=== PATIENT | male | born 1965 | race Caucasian/White ===

== ENCOUNTER 2019-04-12 07:06 | Emergency (ER) | payer OTHER, BC, SELFPAY ==
[2019-04-12 07:19] VITALS: BP 150/88; PULSE 82; RESP 15; TEMP 37.1; O2SAT 95; BMI 28.5
--- NOTE | 2019-04-12 07:23 | DI.RAD.S_ITS ---
PROCEDURE: XR KNEE LT 3V INDICATIONS: fall down stairs pain TECHNIQUE: 3 views of the knee were acquired. COMPARISON: None. FINDINGS: Bones: No fractures or dislocations. There are surgical changes of ACL graft with screws in the distal femur and proximal tibia, and a transverse screw in the distal femoral metaphysis. Bony alignment is normal. There is a 9 mm corticated, tubular calcification projecting anterior to the joint line seen on the lateral view which may be a loose osteophyte. Calcifications project over the medial and lateral femoral condylar articular surfaces, one of which is likely a fabella. No suspicious bony lesions. Soft tissues: Very small joint effusion. No discrete chondrocalcinosis. IMPRESSION: 1. No discrete fractures. 2. Postsurgical changes. 3. Very small joint effusion, either chronic reactive, less likely acute. 4. Osteophytosis, potentially loose intra-articular body projecting anterior to the jointline seen on the lateral view. This is well-corticated and an acute avulsion fracture is felt unlikely. If there are continued symptoms, MR imaging could be considered. Dictated by: Judit Reece M.D. on 04/12/2019 at 7:51 Approved by: Judit Reece M.D. on 04/12/2019 at 7:55
--- NOTE | 2019-04-12 07:46 | ED.LOWEXIN ---
HPI - Extremity Injury (Lower) General Chief Complaint: Extremity Injury, Lower Stated Complaint: Left knee injury, slipped on stairs Time Seen by Provider: 04/12/19 07:19 Source: patient Mode of arrival: ambulatory Limitations: no limitations History of Present Illness HPI Narrative: Patient is a 54-year-old male who presents with left knee pain. Last evening he was walking down stairshis boat his right foot slipped forward his left toe got stuck. Sometimes he is able to bear weight on his knee but sometimes not. He has previously had 2 surgeries on that knee for an ACL repair. He denies hearing any popping. He has no numbness or tingling. Able to move his toes. He denies any other injury. MD complaint: knee injury Related Data Previous Rx's Medication Instructions Recorded ibuprofen 800 mg PO Q8H PRN #30 tab 04/12/19 Allergies Allergy/AdvReac Type Severity Reaction Status Date / Time latex Allergy Verified 04/12/19 07:18 Penicillins Allergy Verified 04/12/19 07:18 Review of Systems Review of Systems GENERAL: Denies chills,fever HEENT: Denies throat pain RESPIRATORY: Denies dyspnea, cough, wheezing CARDIOVASCULAR: Denies chest pain, palpitations GASTROINTESTINAL: Denies nausea, vomiting MUSCULOSKELETAL: See HPI SKIN: No rash, no laceration, no pruritus NEUROLOGIC: Denies weakness, dizziness, headache, numbness 8 point review of systems is negative except for those stated above and [facility]PI [facility] Surgical History H/O left knee surgery (Acute) Social History Smoking Status: Never smoker Social History Smoking Status: Never smoker Exam Initial Vital Signs Initial Vital Signs: Vital Signs Temperature 98.7 F 04/12/19 07:19 Pulse Rate 82 04/12/19 07:19 Respiratory Rate 15 04/12/19 07:19 Blood Pressure 150/88 H 04/12/19 07:19 Pulse Oximetry 95 04/12/19 07:19 GENERAL: Well-appearing, well-nourished and in no acute distress. CARDIOVASCULAR: peripheral pulses in tact, cap refill <2 sec RESPIRATORY: No respiratory distress, speaks in full sentences without difficulty EXTREMITIES: Normal range of motion, no clubbing or edema. Neurovascularly intact -left knee stable is negative anterior posterior drawer minimal swelling no erythema distal to both intact NEUROLOGICAL: Cranial nerves II through XII grossly intact. Normal gait and speech. SKIN: Warm, dry, no petechiae, no rashes or lesions. Course Orders Ordered: ED Orders 04/12/19 07:23 XR knee LT 3V Stat Vital Signs - 8 hr 04/12/19 07:19 Temperature 98.7 F Pulse Rate 82 Respiratory Rate 15 Blood Pressure 150/88 H Pulse Oximetry 95 MDM - Extremity Injury (Lower) Imaging Data left knee: Radiologist's impression: PROCEDURE: XR KNEE LT 3V INDICATIONS: fall down stairs pain TECHNIQUE: 3 views of the knee were acquired. COMPARISON: None. FINDINGS: Bones: No fractures or dislocations. There are surgical changes of ACL graft with screws in the distal femur and proximal tibia, and a transverse screw in the distal femoral metaphysis. Bony alignment is normal. There is a 9 mm corticated, tubular calcification projecting anterior to the joint line seen on the lateral view which may be a loose osteophyte. Calcifications project over the medial and lateral femoral condylar articular surfaces, one of which is likely a fabella. No suspicious bony lesions. Soft tissues: Very small joint effusion. No discrete chondrocalcinosis. IMPRESSION: 1. No discrete fractures. 2. Postsurgical changes. 3. Very small joint effusion, either chronic reactive, less likely acute. 4. Osteophytosis, potentially loose intra-articular body projecting anterior to the jointline seen on the lateral view. This is well-corticated and an acute avulsion fracture is felt unlikely. If there are continued symptoms, MR imaging could be considered. Dictated by: Judit Reece M.D. on 04/12/2019 at 7:51 Approved by: Judit Reece M.D. on 04/12/2019 at 7:55 [facility] Narrative Medical decision making narrative: He Is offered a knee immobilizer but declines at this time he is given a cane. He has multiple knee braces at home. Discharge Plan Departure Patient Disposition: Home Clinical Impression: Left knee sprain Qualifiers: Encounter type: initial encounter Involved ligament of knee: unspecified ligament Qualified Code(s): S83.92XA - Sprain of unspecified site of left knee, initial encounter Instructions: DI for Knee Sprain Activity Restrictions/Additional Instructions: *You have been diagnosed with left knee sprain *What to do: Increase activity as tolerated wearing a brace while active. He may require outpatient MRI *Continue to take medications as directed Ibuprofen 800 mg every 8 hours if needed for mild pain *Follow up with your primary care provider in 2-3 days *Return to ER if you should have increasing pain, numbness, tingling, weakness or any new, worsening or concerning symptoms Prescriptions: New ibuprofen 800 mg tablet 800 mg PO Q8H PRN (Reason: pain) Qty: 30 RF: 0
--- NOTE | 2019-04-12 07:50 | ED_ITS ---
HPI - Extremity Injury (Lower) General Chief Complaint: Extremity Injury, Lower Stated Complaint: Left knee injury, slipped on stairs Time Seen by Provider: 04/12/19 07:19 Source: patient Mode of arrival: ambulatory Limitations: no limitations History of Present Illness HPI Narrative: Patient is a 54-year-old male who presents with left knee pain. Last evening he was walking down stairshis boat his right foot slipped forward his left toe got stuck. Sometimes he is able to bear weight on his knee but sometimes not. He has previously had 2 surgeries on that knee for an ACL repair. He denies hearing any popping. He has no numbness or tingling. Able to move his toes. He denies any other injury. MD complaint: knee injury Related Data Previous Rx's Medication Instructions Recorded ibuprofen 800 mg PO Q8H PRN #30 tab 04/12/19 Allergies Allergy/AdvReac Type Severity Reaction Status Date / Time latex Allergy Verified 04/12/19 07:18 Penicillins Allergy Verified 04/12/19 07:18 Review of Systems Review of Systems GENERAL: Denies chills,fever HEENT: Denies throat pain RESPIRATORY: Denies dyspnea, cough, wheezing CARDIOVASCULAR: Denies chest pain, palpitations GASTROINTESTINAL: Denies nausea, vomiting MUSCULOSKELETAL: See HPI SKIN: No rash, no laceration, no pruritus NEUROLOGIC: Denies weakness, dizziness, headache, numbness 8 point review of systems is negative except for those stated above and HPI [facility] Surgical History H/O left knee surgery (Acute) Social History Smoking Status: Never smoker Social History Smoking Status: Never smoker Exam Initial Vital Signs Initial Vital Signs: Vital Signs Temperature 98.7 F 04/12/19 07:19 Pulse Rate 82 04/12/19 07:19 Respiratory Rate 15 04/12/19 07:19 Blood Pressure 150/88 H 04/12/19 07:19 Pulse Oximetry 95 04/12/19 07:19 GENERAL: Well-appearing, well-nourished and in no acute distress. CARDIOVASCULAR: peripheral pulses in tact, cap refill <2 sec RESPIRATORY: No respiratory distress, speaks in full sentences without difficulty EXTREMITIES: Normal range of motion, no clubbing or edema. Neurovascularly intact -left knee stable is negative anterior posterior drawer minimal swelling no eryt lisset distal to both intact NEUROLOGICAL: Cranial nerves II through XII grossly intact. Normal gait and speech. SKIN: Warm, dry, no petechiae, no rashes or lesions. Course Orders Ordered: ED Orders 04/12/19 07:23 XR knee LT 3V Stat Vital Signs - 8 hr 04/12/19 07:19 Temperature 98.7 F Pulse Rate 82 Respiratory Rate 15 Blood Pressure 150/88 H Pulse Oximetry 95 MDM - Extremity Injury (Lower) Imaging Data left knee: Radiologist's impression: PROCEDURE: XR KNEE LT 3V INDICATIONS: fall down stairs pain TECHNIQUE: 3 views of the knee were acquired. COMPARISON: None. FINDINGS: Bones: No fractures or dislocations. There are surgical changes of ACL graft with screws in the distal femur and proximal tibia, and a transverse screw in the distal femoral metaphysis. Bony alignment is normal. There is a 9 mm corticated, tubular calcification projecting anterior to the joint line seen on the lateral view which may be a loose osteophyte. Calcifications project over the medial and lateral femoral condylar articular surfaces, one of which is likely a fabella. No suspicious bony lesions. Soft tissues: Very small joint effusion. No discrete chondrocalcinosis. IMPRESSION: 1. No discrete fractures. 2. Postsurgical changes. 3. Very small joint effusion, either chronic reactive, less likely acute. 4. Osteophytosis, potentially loose intra-articular body projecting anterior to the jointline seen on the lateral view. This is well-corticated and an acute avulsion fracture is felt unlikely. If there are continued symptoms, MR imaging could be considered. Dictated by: Judit Reece M.D. on 04/12/2019 at 7:51 Approved by: Judit Reece M.D. on 04/12/2019 at 7:55 [facility] Narrative Medical decision making narrative: He Is offered a knee immobilizer but declines at this time he is given a cane. He has multiple knee braces at home. Discharge Plan Departure Patient Disposition: Home Clinical Impression: Left knee sprain Qualifiers: Encounter type: initial encounter Involved ligament of knee: unspecified ligament Qualified Code(s): S83.92XA - Sprain of unspecified site of left knee, initial encounter Instructions: DI for Knee Sprain Activity Restrictions/Additional Instructions: *You have been diagnosed with left knee sprain *What to do: Increase activity as tolerated wearing a brace while active. He may require outpatient MRI *Continue to take medications as directed Ibuprofen 800 mg every 8 hours if needed for mild pain *Follow up with your primary care provider in 2-3 days *Return to ER if you should have increasing pain, numbness, tingling, weakness or any new, worsening or concerning symptoms Prescriptions: New ibuprofen 800 mg tablet 800 mg PO Q8H PRN (Reason: pain) Qty: 30 RF: 0
== END 2019-04-12 08:23 | disposition home or self-care (01) ==
PROVIDERS: Emergency Provider Emergency Medicine
DX: S83.92XA Sprain of unspecified site of left knee, initial encounter (principal); W18.43XA Slipping, tripping and stumbling without falling due to stepping from one level to another, initial encounter
CPT/HCPCS: 73562; 99282; 99283

== ENCOUNTER → 2024-08-22 08:48 | Outpatient (CLI) | payer BC, SELFPAY ==
[2024-08-22 09:51] LABS: Add Manual Diff / Slide Review NO; Basophils Absolute Auto 100 /uL (0-100); Basophils Percent Auto 1.1 % (0-2); Eosinophils Absolute Auto 500 /uL (0-450); Eosinophils Percent Auto 8.2 % (2-4); Hematocrit 42.6 % (41-53); Hemoglobin 14.5 g/dL (13.5-17.5); Lymphocytes Absolute Auto 2500 /uL (1100-4500); Lymphocytes Percent Auto 43.9 % (25-40); Mean Corpuscular HGB Conc 34.2 % (30-36); Mean Corpuscular Hemoglobin 32.5 PG (26-34); Mean Corpuscular Volume 95.2 fL (80-100); Monocytes Absolute Auto 400 /uL (0-900); Monocytes Percent Auto 7.9 % (3-14); Neutrophils Absolute Auto 2200 /uL (1500-7000); Neutrophils Percent Auto 38.9 % (50-75); Platelet Count 248 X10^3/uL (150-400); Red Blood Cell Count 4.47 X10^6/uL (4.5-5.9); White Blood Cell Count 5.7 X10^3/uL (4.5-11.0)
[2024-08-22 10:03] LABS: Hemoglobin A1C% w Est Avg Glu 5.7 % (4.0-6.0)
[2024-08-22 10:09] LABS: Alanine Aminotransferase 17 IU/L (<50); Albumin Globulin Ratio 1.4 (1.0-2.8); Alkaline Phosphatase 47 U/L (38-126); Aspartate Aminotransferase 22 IU/L (17-59); BUN Creatinine Ratio 18.8 (6-22); Bilirubin Total 0.8 mg/dL (0.2-1.3); Blood Urea Nitrogen 13 mg/dL (9-20); Calcium 9.1 mg/dL (8.4-10.2); Carbon Dioxide 25 mmol/L (22-32); Chloride 103 mmol/L (98-107); Cholesterol 231 mg/dL (140-199); Estimated Glomerular Filt Rate > 60 mL/min (>60); Globulin 2.8 g/dL (1.7-4.1); Glucose 113 mg/dL (80-110); HDL Cholesterol 65 mg/dL (40-60); HEMOLYSIS < 15 (0-50); LDL Cholesterol Calculated 147 mg/dL (<100); Potassium 4.4 mmol/L (3.4-5.1); Sodium 135 mmol/L (137-145); Total Protein 6.8 g/dL (6.3-8.2); Triglycerides 97 mg/dL (35-150)
[2024-08-22 10:40] LABS: Prostate Specific Antigen Scrn 2.12 ng/mL (0.1-4.0)
== END ==
PROVIDERS: PCP Family Medicine; Referring Provider Family Medicine; Visit Provider Family Medicine
DX: I10 Essential (primary) hypertension (principal); E78.5 Hyperlipidemia, unspecified; Z12.5 Encounter for screening for malignant neoplasm of prostate
CPT/HCPCS: 36415; 80053; 80061; 83036; 85025; G0103

== ENCOUNTER → 2024-09-05 14:06 | Outpatient (CLI) | payer BC, SELFPAY ==
--- NOTE | 2024-09-05 14:13 | DI.RAD.S_ITS ---
PROCEDURE: XR HIP W PEL IF DONE BIRGIT MIN 4V INDICATIONS: BILATERAL HIP PAIN TECHNIQUE: AP pelvis with lateral view(s) of the right hip(s). COMPARISON: None. FINDINGS: Bones: No fractures or dislocations. Pelvic ring appears intact. No suspicious bony lesions. There is moderate joint space narrowing involving the right hip consistent with degenerative joint disease. There is moderately advanced degenerative joint disease involving the left hip. Soft tissues: The visualized bowel gas pattern is normal. No suspicious soft tissue calcifications. IMPRESSION: No acute bony abnormality. Moderate left greater than right degenerative joint disease involving the hips. Dictated by: Feliciano Prieto M.D. on 09/05/2024 at 14:38 Approved by: Feliciano Prieto M.D. on 09/05/2024 at 14:45
== END ==
PROVIDERS: PCP Family Medicine; Referring Provider Family Medicine; Visit Provider Family Medicine
DX: M25.551 Pain in right hip (principal); M25.552 Pain in left hip; M16.0 Bilateral primary osteoarthritis of hip
CPT/HCPCS: 73522

== ENCOUNTER → 2024-12-11 17:09 | Outpatient (CLI) | payer BC, SELFPAY ==
[2024-12-11 17:42] LABS: Add Manual Diff / Slide Review NO; Basophils Absolute Auto 100 /uL (0-100); Basophils Percent Auto 0.9 % (0-2); Eosinophils Absolute Auto 500 /uL (0-450); Eosinophils Percent Auto 6.4 % (2-4); Hematocrit 43.7 % (41-53); Hemoglobin 14.9 g/dL (13.5-17.5); Lymphocytes Absolute Auto 2900 /uL (1100-4500); Lymphocytes Percent Auto 39.6 % (25-40); Mean Corpuscular HGB Conc 34.1 % (30-36); Mean Corpuscular Hemoglobin 32.6 PG (26-34); Mean Corpuscular Volume 95.7 fL (80-100); Monocytes Absolute Auto 700 /uL (0-900); Monocytes Percent Auto 9.4 % (3-14); Neutrophils Absolute Auto 3200 /uL (1500-7000); Neutrophils Percent Auto 43.7 % (50-75); Platelet Count 265 X10^3/uL (150-400); Red Blood Cell Count 4.57 X10^6/uL (4.5-5.9); Red Cell Distribution Width 13.6 % (11.6-14.8); White Blood Cell Count 7.4 X10^3/uL (4.5-11.0)
[2024-12-11 17:48] LABS: Hemoglobin A1C% w Est Avg Glu 5.3 % (4.0-6.0)
[2024-12-11 17:49] LABS: INR 0.9 (0.9-1.3); Prothrombin Time 10.6 SECONDS (9.4-12.5)
[2024-12-11 17:55] LABS: Alanine Aminotransferase 21 IU/L (<50); Albumin 4.4 g/dL (3.5-5.0); Albumin Globulin Ratio 1.3 (1.0-2.8); Alkaline Phosphatase 55 U/L (38-126); Aspartate Aminotransferase 32 IU/L (17-59); BUN Creatinine Ratio 12.7 (6-22); Bilirubin Total 0.4 mg/dL (0.2-1.3); Blood Urea Nitrogen 9 mg/dL (9-20); Calcium 8.9 mg/dL (8.4-10.2); Carbon Dioxide 27 mmol/L (22-32); Chloride 103 mmol/L (98-107); Estimated Glomerular Filt Rate > 60 mL/min (>60); Globulin 3.4 g/dL (1.7-4.1); Glucose 94 mg/dL (80-110); HEMOLYSIS 20 (0-50); Potassium 4.7 mmol/L (3.4-5.1); Sodium 138 mmol/L (137-145); Total Protein 7.8 g/dL (6.3-8.2)
== END ==
PROVIDERS: Family Provider Family Medicine; PCP Family Medicine; Referring Provider Family Medicine; Visit Provider Family Medicine
DX: Z01.818 Encounter for other preprocedural examination (principal); R73.01 Impaired fasting glucose; E78.5 Hyperlipidemia, unspecified; M25.552 Pain in left hip
CPT/HCPCS: 36415; 80053; 83036; 85025; 85610

== ENCOUNTER → 2024-12-19 16:12 | Outpatient (CLI) | payer BC, SELFPAY ==
[2024-12-19 21:33] LABS: MRSA (Nasal) PCR NOT DETECTED (Not Detect)
== END ==
PROVIDERS: Family Provider Family Medicine; PCP Family Medicine; Visit Provider Family Medicine
DX: Z01.818 Encounter for other preprocedural examination (principal)
CPT/HCPCS: 87797

== ENCOUNTER 2025-05-06 09:45 | Outpatient (RCR) | payer BC, SELFPAY ==
--- NOTE | 2025-01-14 13:38 | PT.OIE ---
Current Diagnoses Unilateral primary osteoarthritis, left hip (01/14/25) Difficulty in walking, not elsewhere classified (01/14/25) Weakness (01/14/25) Past Medical History (Last Updated 09/17/24 @ 20:59 by Farida Roque) Chicken pox (~1992) Eczema (~2020) Fractures Hyperlipidemia, unspecified IFG (impaired fasting glucose) Melanoma (~2019) Shoulder pain Skin cancer (~2019) Past Surgical History (Last Updated 12/21/24 @ 11:16 by Jeanette Jackson MA) Anesthesia H/O left knee surgery (~2008) H/O right knee surgery (~2002) History of rotator cuff surgery (~2019) History of shoulder surgery (~2004) Status post LASIK surgery (~1997) [place] teeth removed (03/24/84) Visit Care Team Role Provider Type Aviva Argueta DO Family Provider Physician Primary Care Provider Specialty: Family Practice Address: [address] [place] [address], [facility] Email: [email or web address] Taurus Saldana MD Attending Provider Non-Staff Referring Provider Specialty: Orthopedic Surgery Address: [address] [place] [address], [facility] Email: Physical Therapy Initial Evaluation PT-OP-A Visit Information Start: 01/10/25 16:00 Freq: Status: Active Protocol: Document 01/14/25 11:34 [facility] (Rec: 01/14/25 12:24 [facility] Laptop) Out-Patient Physical Therapy Visit Information Visit Information Visit Type Initial Evaluation Visit Start Time 11:34 Visit Stop Time 12:25 Visit Number 1 Evaluation Information Evaluation Date 01/14/25 Precautions Precautions Left anterior FREDRICK PT-OP-B Current Condition Start: 01/10/25 16:00 Freq: Status: Active Protocol: Document 01/14/25 11:34 [facility] (Rec: 01/14/25 12:24 SAK Laptop) Current Condition History of Current Condition Onset Date 01/10/25 Current Complaints s/p left FREDRICK History of Current Condition s/p left anterior FREDRICK 01/10/25. Used Oxycodone first couple days, now off and using Ibuprofen, Tylenol, baby aspirin, ice. No need for anti-nausea. Used walker at first, today first day with cane. Using FWW in the middle of the night. Numbness left lateral LE, has been swollen but wearing above knee compression socks not as swollen. Post-op dressing still in place, can come off 1 wk after surgery. Goes back to Dr. Ocampo 01/24/25. no redness or warmth. Has been doing exercises. 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 Current Functional Impairments (Reported) Functional Limitations- ADL's bench in shower Functional Limitations- Mobility/Gait cane Functional Limitations- Work/School retired Functional Limitations- Recreation/ unable to go for walks, go Hobbies boating. PT-OP-C Subjective Start: 01/10/25 16:00 Freq: Status: Active Protocol: Document 01/14/25 11:34 [facility] (Rec: 01/14/25 12:24 [facility] Laptop) Patient Questionnaires Lower Extremity Functional Scale LEFS Score 20 OP-PT Pain Assessment Pain Assessment Grid Paper Pain Assessment Grid Completed Yes Location left hip Intensity 3 Description Aching,Spasm,Throbbing Frequency Frequent Pain Aggravating Factors ADL's,Activity,Walking Pain Alleviating Factors Cold,Inactivity,Rest Home Pain Medication Use Pain Medications Used Yes Pain Behaviors Pain Behaviors Facial Grimacing,Wincing PT-OP-D Balance Start: 01/10/25 16:00 Freq: Status: Active Protocol: Document 01/14/25 11:34 [facility] (Rec: 01/14/25 13:36 [facility] Laptop) OP-PT Balance Assessment Sitting Balance Static Sitting Balance Ability Normal Dynamic Sitting Balance Ability Normal Standing Balance Static Standing Balance Ability Fair Dynamic Standing Balance Ability Fair Device Used SPC Standing Balance Comments decreased weight-bearing left LE Tucker Fall Scale Copyright Permission PT-OP-F Manual Assessment Start: 01/10/25 16:00 Freq: Status: Active Protocol: Document 01/14/25 11:34 [facility] (Rec: 01/14/25 13:36 [facility] Laptop) Manual Assessments Soft Tissue Assessment Soft Tissue Mobility Assessment swollen left LE, no excess redness and warmth PT-OP-G Mobility & Gait Start: 01/10/25 16:00 Freq: Status: Active Protocol: Document 01/14/25 11:34 [facility] (Rec: 01/14/25 12:24 [facility] Laptop) OP Mobility Evaluation Bed Mobility Supine to and from Sit SBA, hooks right foot under left to transition sit to supine OP Gait Assessment Gait Gait Assistance Required: Independent Distance (Feet) 50 Able to Maintain Weight Bearing Status Yes During Gait Assistive Devices Assistive Device Straight Cane Gait Deviations General Gait Pattern Antalgic,Decreased Stride Length,Decreased Feet Clearance Factors Limiting Gait Function Factors Limiting Gait Function Decreased Strength,Pain Stair Climbing Evaluation Evaluation Level of Assist On Stairs Standby Assistance Devices Stair Climbing Assistive Devices Straight Cane,Right Railing Technique/Endurance Stair Climbing Direction Ascend and Descend Stair Climbing Technique Step to Step Stair Climbing Set # Repetitions (reps) 4 Comments Stair Climbing Comments 6 stairs PT-OP-H Neuro Start: 01/10/25 16:00 Freq: Status: Active Protocol: Document 01/14/25 11:34 [facility] (Rec: 01/14/25 13:36 [facility] Laptop) Sensation Evaluation Gross Sensation Sensation Description Paresthesia PT-OP-J Posture/Palpation/Skin Start: 01/10/25 16:00 Freq: Status: Active Protocol: Document 01/14/25 11:34 [facility] (Rec: 01/14/25 13:36 [facility] Laptop) Palpation Assessment Location left hip Palpation Findings Edema,Soft Tissue Tightness Skin Assessment Incisional Assessment Incision Appearance/Comments covered by op dressing PT-OP-K Range of Motion Start: 01/10/25 16:00 Freq: Status: Active Protocol: Document 01/14/25 11:34 [facility] (Rec: 01/14/25 13:36 [facility] Laptop) Hip Goniometric Range of Motion Hip Left Active Testing Position Supine Flexion w/Knee Flexed 75 Extension 0 Abduction 40 Right Active Testing Position Supine Hip ROM Limitations Comments rotation not tested this date PT-OP-M Strength Start: 01/10/25 16:00 Freq: Status: Active Protocol: Document 01/14/25 11:34 [facility] (Rec: 01/14/25 13:36 [facility] Laptop) Hip Strength Hip Manual Muscle Testing Left Comments No MMT due to surgery. Able to flex left hip less than full anti-gravity Right Comments WFL Knee Strength Knee Manual Muscle Testing Left Comments antigravity quads Right Flexion (S2) 5 Normal Extension (L3) 5 Normal Ankle/Foot Strength Ankle and Foot Manual Muscle Testing juanita Dorsiflexion (L4) 5 Normal Plantarflexion (S1) 5 Normal PT-OP-Q Treatments Start: 01/10/25 16:00 Freq: Status: Active Protocol: Document 01/14/25 11:34 [facility] (Rec: 01/14/25 13:36 [facility] Laptop) Therapeutic Exercises Supine Exercises ball squeeze Side bilateral Equipment Used pillow Reps/Minutes 10x hip ab Side left Reps/Minutes 10x heel slide Side left Reps/Minutes 10x bridge Side bilateral Reps/Minutes 5x Comments small lift glut sets Side bilateral Reps/Minutes 10x Sidelying Exercises clam Sidelying Exercise Name next session Standing Exercises heel raise, toe raise Equipment Used counter PRN Reps/Minutes 10x Shallow knee bend Side bilateral Comments cue for LE alignment, pain- free motion Self-Care/Home Management Treatment Education Patient Education Home Exercise Program Other Education issued written HEP PT-OP-R Modalities Start: 01/10/25 16:00 Freq: Status: Active Protocol: Document 01/14/25 11:34 [facility] (Rec: 01/14/25 13:36 [facility] Laptop) Hot Pack/Cold Pack Treatment L hip Location ice pack Patient Position Hooklying Patient Tolerance Good PT-OP-T Assessment and Plan Start: 01/10/25 16:00 Freq: Status: Active Protocol: Document 01/14/25 11:34 [facility] (Rec: 01/14/25 13:36 [facility] Laptop) Physical Therapy Assessment Rehab Potential Rehabilitation Potential Excellent Evaluation Complexity Number of Personal Factors/Comorbidities 1-2 Number of Body Systems Impaired 3 Clinical Presentation at Evaluation Evolving Impairments Impairments Activity Tolerance,Gait, Strength Goals Three Impairment weakness left LE Short Term Goal (STG) Instruct patient in HEP for purposes of left LE strengthening STG Duration 02/27/25 Mcc Goal (LTG) Patient will be independent and compliant with HEP and demonstrate improvement in left LE strength to at least 4 +/5 to allow him to return to prior level of function. LTG Duration 04/15/25 Two Impairment Antalgic gait, step-to pattern on stairs Short Term Goal (STG) Patient will be able to ambulate on level surfaces without a limp with least restrictive device STG Duration 02/27/25 Coal Drier Operator Goal (LTG) Patient will be able to ambulate on level and uneven surfaces without device without an increase in pain. Alternating step pattern on stairs LTG Duration 04/15/25 One Impairment Lower extremity functional scale 20% Short Term Goal (STG) Improve score to at least 40% as measure of improved activity tolerance and left LE function STG Duration 02/27/25 Coal Drier Operator Goal (LTG) Improve score to at least 75% as measure of improved activity tolerance and left LE function LTG Duration 04/15/25 Assessment Summary Assessment Patient presents to PT with activity tolerance, gait, and strength impairments typical post-op left anterior FREDRICK. He will benefit from PT for FREDRICK rehab left LE to help him return to prior level of function. POC was discussed and patient was in agreement. He was able to verbalize understanding of FREDRICK precautions, has already transitioned to using cane for gait except at night and has stopped taking Oxycodone. He appears highly motivated. Physical Therapy Plan Frequency and Duration Frequency of Treatment 2x/Week Duration of treatment (weeks) 12 Plan of Care Start Date 01/14/25 Plan of Care End Date 04/15/25 Therapeutic Interventions Therapeutic Interventions Gait Training,Home Exercise Program,Manual Therapy, Neuromuscular Re-education, Patient/Caregiver Education, Self-Care/Home Management,Soft Tissue Mobilization,Taping, Therapeutic Activities, Therapeutic Exercises Modalities Cold Pack/Ice Massage,Electric Stimulation,Hot Packs Next Visit Focus/Plan Next Note Type Treatment Note Next Visit Plan Start patient on recumbant stepper, review HEP. Further gait training level surfaces and stairs. Consider trial shuttle leg press. Ice pack after treatment.
--- NOTE | 2025-01-14 13:39 | PT.OPPOC ---
Physical, Occupational & Speech Therapy At [facility] Current Diagnoses Unilateral primary osteoarthritis, left hip (01/14/25) Difficulty in walking, not elsewhere classified (01/14/25) Weakness (01/14/25) Visit Care Team Role Provider Type Aviva Argueta DO Family Provider Physician Primary Care Provider Specialty: Family Practice Address: [address] [place] [address], [facility] [address], [place], [address] Email: [email or web address] Taurus Saldana MD Attending Provider Non-Staff Referring Provider Specialty: Orthopedic Surgery Address: [address] [place] [address], [id number] Email: Plan Of Care PT-OP-B Current Condition Start: 01/10/25 16:00 Freq: Status: Active Protocol: Document 01/14/25 11:34 SAK (Rec: 01/14/25 12:24 SAK Laptop) Current Condition History of Current Condition Onset Date 01/10/25 Current Complaints s/p left FREDRICK History of Current Condition s/p left anterior FREDRICK 01/10/25. Used Oxycodone first couple days, now off and using Ibuprofen, Tylenol, baby aspirin, ice. No need for anti-nausea. Used walker at first, today first day with cane. Using FWW in the middle of the night. Numbness left lateral LE, has been swollen but wearing above knee compression socks not as swollen. Post-op dressing still in place, can come off 1 wk after surgery. Goes back to Dr. Ocampo 01/24/25. no redness or warmth. Has been doing exercises. 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 Current Functional Impairments (Reported) Functional Limitations- ADL's bench in shower Functional Limitations- Mobility/Gait cane Functional Limitations- Work/School retired Functional Limitations- Recreation/ unable to go for walks, go Hobbies boating. PT-OP-T Assessment and Plan Start: 01/10/25 16:00 Freq: Status: Active Protocol: Document 01/14/25 11:34 SAK (Rec: 01/14/25 13:36 [facility] Laptop) Physical Therapy Assessment Rehab Potential Rehabilitation Potential Excellent Evaluation Complexity Number of Personal Factors/Comorbidities 1-2 Number of Body Systems Impaired 3 Clinical Presentation at Evaluation Evolving Impairments Impairments Activity Tolerance,Gait, Strength Goals Three Impairment weakness left LE Short Term Goal (STG) Instruct patient in HEP for purposes of left LE strengthening STG Duration 02/27/25 Detention Goal (LTG) Patient will be independent and compliant with HEP and demonstrate improvement in left LE strength to at least 4 +/5 to allow him to return to prior level of function. LTG Duration 04/15/25 Two Impairment Antalgic gait, step-to pattern on stairs Short Term Goal (STG) Patient will be able to ambulate on level surfaces without a limp with least restrictive device STG Duration 02/27/25 Storeperson Goal (LTG) Patient will be able to ambulate on level and uneven surfaces without device without an increase in pain. Alternating step pattern on stairs LTG Duration 04/15/25 One Impairment Lower extremity functional scale 20% Short Term Goal (STG) Improve score to at least 40% as measure of improved activity tolerance and left LE function STG Duration 02/27/25 Detention Goal (LTG) Improve score to at least 75% as measure of improved activity tolerance and left LE function LTG Duration 04/15/25 Assessment Summary Assessment Patient presents to PT with activity tolerance, gait, and strength impairments typical post-op left anterior FREDRICK. He will benefit from PT for FREDRICK rehab left LE to help him return to prior level of function. POC was discussed and patient was in agreement. He was able to verbalize understanding of FREDRICK precautions, has already transitioned to using cane for gait except at night and has stopped taking Oxycodone. He appears highly motivated. Physical Therapy Plan Frequency and Duration Frequency of Treatment 2x/Week Duration of treatment (weeks) 12 Plan of Care Start Date 01/14/25 Plan of Care End Date 04/15/25 Therapeutic Interventions Therapeutic Interventions Gait Training,Home Exercise Program,Manual Therapy, Neuromuscular Re-education, Patient/Caregiver Education, Self-Care/Home Management,Soft Tissue Mobilization,Taping, Therapeutic Activities, Therapeutic Exercises Modalities Cold Pack/Ice Massage,Electric Stimulation,Hot Packs Next Visit Focus/Plan Next Note Type Treatment Note Next Visit Plan Start patient on recumbant stepper, review HEP. Further gait training level surfaces and stairs. Consider trial shuttle leg press. Ice pack after treatment. Plan of Care Dates Plan of Care Start Date 01/14/25 Plan of Care End Date 04/15/25 Electronically Signed by: Andree Gonzalez, PT 01/14/25 [id number] If you are in agreement with this Plan of Care, please return a signed and dated copy. I have reviewed this Plan of Care and certify that the skilled therapy services above are required to meet the patient?s needs. Physician Signature Date Printed Name and Credentials Clinical Instructor Signature Printed Name and Credentials
--- NOTE | 2025-01-16 09:07 | PT.OTN ---
Current Diagnoses Unilateral primary osteoarthritis, left hip (01/16/25) Difficulty in walking, not elsewhere classified (01/16/25) Weakness (01/16/25) Physical Therapy Treatment Note PT-OP-A Visit Information Start: 01/10/25 16:00 Freq: Status: Active Protocol: Document 01/16/25 08:19 SP (Rec: 01/16/25 09:10 SP Laptop) Out-Patient Physical Therapy Visit Information Visit Information Visit Type Treatment Note Visit Start Time 08:19 Visit Stop Time 09:07 Visit Number 2 Number of ASSEMBLER TUBING Visits 1 Evaluation Information Evaluation Date 01/14/25 Precautions Precautions Left anterior FREDRICK PT-OP-B Current Condition Start: 01/10/25 16:00 Freq: Status: Active Protocol: Document 01/14/25 11:34 SAK (Rec: 01/14/25 12:24 SAK Laptop) Current Condition History of Current Condition Onset Date 01/10/25 Current Complaints s/p left FREDRICK History of Current Condition s/p left anterior FREDRICK 01/10/25. Used Oxycodone first couple days, now off and using Ibuprofen, Tylenol, baby aspirin, ice. No need for anti-nausea. Used walker at first, today first day with cane. Using FWW in the middle of the night. Numbness left lateral LE, has been swollen but wearing above knee compression socks not as swollen. Post-op dressing still in place, can come off 1 wk after surgery. Goes back to Dr. Ocampo 01/24/25. no redness or warmth. Has been doing exercises. 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 Current Functional Impairments (Reported) Functional Limitations- ADL's bench in shower Functional Limitations- Mobility/Gait cane Functional Limitations- Work/School retired Functional Limitations- Recreation/ unable to go for walks, go Hobbies boating. PT-OP-C Subjective Start: 01/10/25 16:00 Freq: Status: Active Protocol: Document 01/16/25 08:19 SP (Rec: 01/16/25 09:10 SP Laptop) OP-PT Subjective Patient Comments Patient Comments Pt reports is compliant with HEP modified for not over doing it, did swell later in day after last tx. Is able to do move LLE in bed without RLE support and was able to brief perform 1 SLR but knows not to add to HEP with education. Pt reports pain had prior to surgery is gone now. Has ortho follow up next . PT-OP-D Balance Start: 01/10/25 16:00 Freq: Status: Active Protocol: Document 01/14/25 11:34 [facility] (Rec: 01/14/25 13:36 [facility] Laptop) OP-PT Balance Assessment Sitting Balance Static Sitting Balance Ability Normal Dynamic Sitting Balance Ability Normal Standing Balance Static Standing Balance Ability Fair Dynamic Standing Balance Ability Fair Device Used SPC Standing Balance Comments decreased weight-bearing left LE Tucker Fall Scale Copyright Permission PT-OP-F Manual Assessment Start: 01/10/25 16:00 Freq: Status: Active Protocol: Document 01/14/25 11:34 [facility] (Rec: 01/14/25 13:36 [facility] Laptop) Manual Assessments Soft Tissue Assessment Soft Tissue Mobility Assessment swollen left LE, no excess redness and warmth PT-OP-G Mobility & Gait Start: 01/10/25 16:00 Freq: Status: Active Protocol: Document 01/14/25 11:34 [facility] (Rec: 01/14/25 12:24 [facility] Laptop) OP Mobility Evaluation Bed Mobility Supine to and from Sit SBA, hooks right foot under left to transition sit to supine OP Gait Assessment Gait Gait Assistance Required: Independent Distance (Feet) 50 Able to Maintain Weight Bearing Status Yes During Gait Assistive Devices Assistive Device Straight Cane Gait Deviations General Gait Pattern Antalgic,Decreased Stride Length,Decreased Feet Clearance Factors Limiting Gait Function Factors Limiting Gait Function Decreased Strength,Pain Stair Climbing Evaluation Evaluation Level of Assist On Stairs Standby Assistance Devices Stair Climbing Assistive Devices Straight Cane,Right Railing Technique/Endurance Stair Climbing Direction Ascend and Descend Stair Climbing Technique Step to Step Stair Climbing Set # Repetitions (reps) 4 Comments Stair Climbing Comments 6 stairs PT-OP-H Neuro Start: 01/10/25 16:00 Freq: Status: Active Protocol: Document 01/14/25 11:34 [facility] (Rec: 01/14/25 13:36 [facility] Laptop) Sensation Evaluation Gross Sensation Sensation Description Paresthesia PT-OP-J Posture/Palpation/Skin Start: 01/10/25 16:00 Freq: Status: Active Protocol: Document 01/14/25 11:34 [facility] (Rec: 01/14/25 13:36 [facility] Laptop) Palpation Assessment Location left hip Palpation Findings Edema,Soft Tissue Tightness Skin Assessment Incisional Assessment Incision Appearance/Comments covered by op dressing PT-OP-K Range of Motion Start: 01/10/25 16:00 Freq: Status: Active Protocol: Document 01/14/25 11:34 SAK (Rec: 01/14/25 13:36 [facility] Laptop) Hip Goniometric Range of Motion Hip Left Active Testing Position Supine Flexion w/Knee Flexed 75 Extension 0 Abduction 40 Right Active Testing Position Supine Hip ROM Limitations Comments rotation not tested this date PT-OP-M Strength Start: 01/10/25 16:00 Freq: Status: Active Protocol: Document 01/14/25 11:34 SAK (Rec: 01/14/25 13:36 [facility] Laptop) Hip Strength Hip Manual Muscle Testing Left Comments No MMT due to surgery. Able to flex left hip less than full anti-gravity Right Comments WFL Knee Strength Knee Manual Muscle Testing Left Comments antigravity quads Right Flexion (S2) 5 Normal Extension (L3) 5 Normal Ankle/Foot Strength Ankle and Foot Manual Muscle Testing juanita Dorsiflexion (L4) 5 Normal Plantarflexion (S1) 5 Normal PT-OP-Q Treatments Start: 01/10/25 16:00 Freq: Status: Active Protocol: Document 01/16/25 08:19 SP (Rec: 01/16/25 09:10 SP Laptop) Therapeutic Exercises Supine Exercises ball squeeze Side bilateral Equipment Used pillow Reps/Minutes 5 SH x10 hip ab Side left Resistance AROM Reps/Minutes 10x Comments good form, no pain heel slide Side left Reps/Minutes 10x Comments cued ankle DF neutral, tends to PF good correction bridge Side bilateral Reps/Minutes x10 with 2 SH today Comments small lift, improved form/ range with no pain glut sets Supine Exercise Name QS and GS Side bilateral Reps/Minutes 10 SH x5 reps each Sidelying Exercises clam Sidelying Exercise Name added to HEP declined HO Side left Resistance AROM Reps/Minutes x10 Comments cued stacked on side with TA improved not rocking back. Standing Exercises heel raise, toe raise Equipment Used counter PRN Reps/Minutes 10x UE support then none Comments improved range/stab with reps Shallow knee bend Side bilateral Equipment Used no UE support needed to day Reps/Minutes x10 Comments cue for LE alignment, posture into standing, pain-free motion Gait Training Gait Activity stairs Device Used SPC and HR Distance/Duration (14 home- 2 landing then 12) Treatment Focus recheck proper patterning Comments good form and proper patterning. SPC Device Used SPC Distance/Duration 195 ft lap around clinic inside Treatment Focus proper patterning, foot clearance, stride and ankle mobility Comments good form, at this time leans onto SPC in RUE for comfort with as much midline trunk as can improved. Manual Therapy Treatment Soft Tissue Mobilization L hip Mobilization Type Manual Lymphatic Drainage Intensity/Depth Superficial Body Position Supine Comments gentle superficial glides over clothing PT-OP-R Modalities Start: 01/10/25 16:00 Freq: Status: Active Protocol: Document 01/16/25 08:19 SP (Rec: 01/16/25 09:10 SP Laptop) Hot Pack/Cold Pack Treatment L hip Location Anterior L hip: ice pack Patient Position Hooklying Patient Tolerance Good Comments wedge under thighs/knees PT-OP-T Assessment and Plan Start: 01/10/25 16:00 Freq: Status: Active Protocol: Document 01/16/25 08:19 SP (Rec: 01/16/25 09:10 SP Laptop) Physical Therapy Assessment Goals Three Impairment weakness left LE Short Term Goal (STG) Instruct patient in HEP for purposes of left LE strengthening STG Duration 02/27/25 Fdc Goal (LTG) Patient will be independent and compliant with HEP and demonstrate improvement in left LE strength to at least 4 +/5 to allow him to return to prior level of function. LTG Duration 04/15/25 Two Impairment Antalgic gait, step-to pattern on stairs Short Term Goal (STG) Patient will be able to ambulate on level surfaces without a limp with least restrictive device STG Duration 02/27/25 Fdc Goal (LTG) Patient will be able to ambulate on level and uneven surfaces without device without an increase in pain. Alternating step pattern on stairs LTG Duration 04/15/25 One Impairment Lower extremity functional scale 20% Short Term Goal (STG) Improve score to at least 40% as measure of improved activity tolerance and left LE function STG Duration 02/27/25 Hot Repairman Goal (LTG) Improve score to at least 75% as measure of improved activity tolerance and left LE function LTG Duration 04/15/25 Assessment Summary Assessment Pt has good tolerance to HEP. Good gait and stair mgt demonstration with occasional cue for SPC positioning advanced step when ascending and good positioning descending. He takes a moment prior to descend to recall patterning with good form. Cued during addition of RSL clamshell for stacked alignment not rocking backward and TA Physical Therapy Plan Frequency and Duration Frequency of Treatment 2x/Week Duration of treatment (weeks) 12 Plan of Care Start Date 01/14/25 Plan of Care End Date 04/15/25 Therapeutic Interventions Therapeutic Interventions Gait Training,Home Exercise Program,Manual Therapy, Neuromuscular Re-education, Patient/Caregiver Education, Self-Care/Home Management,Soft Tissue Mobilization,Taping, Therapeutic Activities, Therapeutic Exercises Modalities Cold Pack/Ice Massage,Electric Stimulation,Hot Packs Next Visit Focus/Plan Next Note Type Treatment Note Next Visit Plan Start patient on recumbant stepper, review HEP. Further gait training level surfaces and stairs. Consider trial shuttle leg press. Ice pack after treatment.
--- NOTE | 2025-01-21 08:57 | PT.OTN ---
Current Diagnoses Unilateral primary osteoarthritis, left hip (01/21/25) Difficulty in walking, not elsewhere classified (01/21/25) Weakness (01/21/25) Physical Therapy Treatment Note PT-OP-A Visit Information Start: 01/10/25 16:00 Freq: Status: Active Protocol: Document 01/21/25 08:13 SAK (Rec: 01/21/25 08:57 SAK Laptop) Out-Patient Physical Therapy Visit Information Visit Information Visit Type Treatment Note Visit Start Time 08:15 Visit Stop Time 10:05 Visit Number 3 Number of SECURITY SOFTWARE ENGINEER Visits 0 Evaluation Information Evaluation Date 01/14/25 Precautions Precautions Left anterior FREDRICK PT-OP-B Current Condition Start: 01/10/25 16:00 Freq: Status: Active Protocol: Document 01/21/25 08:13 SAK (Rec: 01/21/25 08:57 SAK Laptop) Current Condition History of Current Condition Onset Date 01/10/25 Current Complaints s/p left FREDRICK History of Current Condition s/p left anterior FREDRICK 01/10/25. Used Oxycodone first couple days, now off and using Ibuprofen, Tylenol, baby aspirin, ice. No need for anti-nausea. Used walker at first, today first day with cane. Using FWW in the middle of the night. Numbness left lateral LE, has been swollen but wearing above knee compression socks not as swollen. Post-op dressing still in place, can come off 1 wk after surgery. Goes back to Dr. Ocampo 01/24/25. no redness or warmth. Has been doing exercises. PT-OP-C Subjective Start: 01/10/25 16:00 Freq: Status: Active Protocol: Document 01/21/25 08:13 SAK (Rec: 01/21/25 08:57 SAK Laptop) OP-PT Subjective Patient Comments Patient Comments Progressing away from using cane. Had to stop using compression due to apparent allergy (? latex), reports legs on fire. Compliant to HEP. PT-OP-D Balance Start: 01/10/25 16:00 Freq: Status: Active Protocol: Document 01/14/25 11:34 SAK (Rec: 01/14/25 13:36 SAK Laptop) OP-PT Balance Assessment Sitting Balance Static Sitting Balance Ability Normal Dynamic Sitting Balance Ability Normal Standing Balance Static Standing Balance Ability Fair Dynamic Standing Balance Ability Fair Device Used SPC Standing Balance Comments decreased weight-bearing left LE Tucker Fall Scale Copyright Permission PT-OP-F Manual Assessment Start: 01/10/25 16:00 Freq: Status: Active Protocol: Document 01/14/25 11:34 [facility] (Rec: 01/14/25 13:36 [facility] Laptop) Manual Assessments Soft Tissue Assessment Soft Tissue Mobility Assessment swollen left LE, no excess redness and warmth PT-OP-G Mobility & Gait Start: 01/10/25 16:00 Freq: Status: Active Protocol: Document 01/14/25 11:34 [facility] (Rec: 01/14/25 12:24 [facility] Laptop) OP Mobility Evaluation Bed Mobility Supine to and from Sit SBA, hooks right foot under left to transition sit to supine OP Gait Assessment Gait Gait Assistance Required: Independent Distance (Feet) 50 Able to Maintain Weight Bearing Status Yes During Gait Assistive Devices Assistive Device Straight Cane Gait Deviations General Gait Pattern Antalgic,Decreased Stride Length,Decreased Feet Clearance Factors Limiting Gait Function Factors Limiting Gait Function Decreased Strength,Pain Stair Climbing Evaluation Evaluation Level of Assist On Stairs Standby Assistance Devices Stair Climbing Assistive Devices Straight Cane,Right Railing Technique/Endurance Stair Climbing Direction Ascend and Descend Stair Climbing Technique Step to Step Stair Climbing Set # Repetitions (reps) 4 Comments Stair Climbing Comments 6 stairs PT-OP-H Neuro Start: 01/10/25 16:00 Freq: Status: Active Protocol: Document 01/14/25 11:34 [facility] (Rec: 01/14/25 13:36 [facility] Laptop) Sensation Evaluation Gross Sensation Sensation Description Paresthesia PT-OP-J Posture/Palpation/Skin Start: 01/10/25 16:00 Freq: Status: Active Protocol: Document 01/14/25 11:34 [facility] (Rec: 01/14/25 13:36 [facility] Laptop) Palpation Assessment Location left hip Palpation Findings Edema,Soft Tissue Tightness Skin Assessment Incisional Assessment Incision Appearance/Comments covered by op dressing PT-OP-K Range of Motion Start: 01/10/25 16:00 Freq: Status: Active Protocol: Document 01/14/25 11:34 [facility] (Rec: 01/14/25 13:36 [facility] Laptop) Hip Goniometric Range of Motion Hip Left Active Testing Position Supine Flexion w/Knee Flexed 75 Extension 0 Abduction 40 Right Active Testing Position Supine Hip ROM Limitations Comments rotation not tested this date PT-OP-M Strength Start: 01/10/25 16:00 Freq: Status: Active Protocol: Document 01/14/25 11:34 [facility] (Rec: 01/14/25 13:36 [facility] Laptop) Hip Strength Hip Manual Muscle Testing Left Comments No MMT due to surgery. Able to flex left hip less than full anti-gravity Right Comments WFL Knee Strength Knee Manual Muscle Testing Left Comments antigravity quads Right Flexion (S2) 5 Normal Extension (L3) 5 Normal Ankle/Foot Strength Ankle and Foot Manual Muscle Testing juanita Dorsiflexion (L4) 5 Normal Plantarflexion (S1) 5 Normal PT-OP-Q Treatments Start: 01/10/25 16:00 Freq: Status: Active Protocol: Document 01/21/25 08:13 [facility] (Rec: 01/21/25 08:57 [facility] Laptop) Cardio Equipment Recumbent Stepper (Sci-Fit) Duration (Minutes) 7 Resistance 1 Seat Position 16 Other .75 miles, good gema. Gym Equipment Shuttle Recovery Unilateral Squats Details good form Resistance 37 R, 25 L Shuttle Recovery Platform Stable Reps/Time 10 x2 each Bilateral Squats Details cued knee out with toes Resistance 50, 62 Shuttle Recovery Platform Stable Reps/Time 10x2 Therapeutic Exercises Sidelying Exercises clam Side left Resistance AROM Reps/Minutes x10 Comments pt going too far, cues for smaller motion. Standing Exercises sidestepping Side bilateral Reps/Minutes 10 ft x4 Comments cues for pain-free, toes pointed straight ahead heel raise, toe raise Equipment Used counter PRN Reps/Minutes 10x UE support then none Comments improved range/stab with reps Shallow knee bend Side bilateral Equipment Used no UE support needed to day Reps/Minutes x10 Comments cue for LE alignment, posture into standing, pain-free motion Gait Training Gait Activity level Level of Assistance SBA, cues Surface firm Distance/Duration 2 min Treatment Focus no limp stairs Device Used 1 railing Surface 4 stairs Treatment Focus safety, no increase in pain Comments good form and proper patterning. Manual Therapy Treatment Soft Tissue Mobilization L hip Mobilization Type Manual Lymphatic Drainage Intensity/Depth Superficial Body Position Supine Comments gentle superficial glides over clothing Lymphedema Treatment Manual Lymphatic Drainage Location left LE Duration 5 min PT-OP-R Modalities Start: 01/10/25 16:00 Freq: Status: Active Protocol: Document 01/21/25 08:13 SAK (Rec: 01/21/25 08:57 SAK Laptop) Hot Pack/Cold Pack Treatment L hip Location Anterior L hip: ice pack Patient Position Hooklying Patient Tolerance Good Comments wedge under thighs/knees PT-OP-T Assessment and Plan Start: 01/10/25 16:00 Freq: Status: Active Protocol: Document 01/21/25 08:13 SAK (Rec: 01/21/25 08:57 [facility] Laptop) Physical Therapy Assessment Impairments Impairments Activity Tolerance,Gait, Strength Goals Three Impairment weakness left LE Short Term Goal (STG) Instruct patient in HEP for purposes of left LE strengthening STG Duration 02/27/25 Skilled Nursing Goal (LTG) Patient will be independent and compliant with HEP and demonstrate improvement in left LE strength to at least 4 +/5 to allow him to return to prior level of function. LTG Duration 04/15/25 Two Impairment Antalgic gait, step-to pattern on stairs Short Term Goal (STG) Patient will be able to ambulate on level surfaces without a limp with least restrictive device STG Duration 02/27/25 Indirect Sales Exec Goal (LTG) Patient will be able to ambulate on level and uneven surfaces without device without an increase in pain. Alternating step pattern on stairs LTG Duration 04/15/25 One Impairment Lower extremity functional scale 20% Short Term Goal (STG) Improve score to at least 40% as measure of improved activity tolerance and left LE function STG Duration 02/27/25 Skilled Nursing Goal (LTG) Improve score to at least 75% as measure of improved activity tolerance and left LE function LTG Duration 04/15/25 Assessment Summary Assessment Improved gait with verbal and visual cues, corrected clamshell form with good understanding. Good recumbant stepper and leg press. 4 stairs with alternating pattern with min UE support on railing. Physical Therapy Plan Frequency and Duration Frequency of Treatment 2x/Week Duration of treatment (weeks) 12 Plan of Care Start Date 01/14/25 Plan of Care End Date 04/15/25 Therapeutic Interventions Therapeutic Interventions Gait Training,Home Exercise Program,Manual Therapy, Neuromuscular Re-education, Patient/Caregiver Education, Self-Care/Home Management,Soft Tissue Mobilization,Taping, Therapeutic Activities, Therapeutic Exercises Modalities Cold Pack/Ice Massage,Electric Stimulation,Hot Packs Next Visit Focus/Plan Next Note Type Treatment Note Next Visit Plan Evaluate response to today's treatment with shuttle stepper , shuttle leg press, alternating pattern 4 stairs. Progress as tolerated LE strengthening, review clam, sidelying hip ab.
--- NOTE | 2025-01-23 09:12 | PT.OTN ---
Current Diagnoses Unilateral primary osteoarthritis, left hip (01/23/25) Difficulty in walking, not elsewhere classified (01/23/25) Weakness (01/23/25) Physical Therapy Treatment Note PT-OP-A Visit Information Start: 01/10/25 16:00 Freq: Status: Active Protocol: Document 01/23/25 08:17 SP (Rec: 01/23/25 09:06 SP Laptop) Out-Patient Physical Therapy Visit Information Visit Information Visit Type Treatment Note Visit Note Willow VILLALBA assisted in ther ex and manual while under instruction from Larissa COTE with permission of pt. Visit Start Time 08:17 Visit Stop Time 09:12 Visit Number 4 Number of AIRPORT TOWER CONTROLLER Visits 1 Evaluation Information Evaluation Date 01/14/25 Precautions Precautions Left anterior FREDRICK PT-OP-B Current Condition Start: 01/10/25 16:00 Freq: Status: Active Protocol: Document 01/21/25 08:13 SAK (Rec: 01/21/25 08:57 SAK Laptop) Current Condition History of Current Condition Onset Date 01/10/25 Current Complaints s/p left FREDRICK History of Current Condition s/p left anterior FREDRICK 01/10/25. Used Oxycodone first couple days, now off and using Ibuprofen, Tylenol, baby aspirin, ice. No need for anti-nausea. Used walker at first, today first day with cane. Using FWW in the middle of the night. Numbness left lateral LE, has been swollen but wearing above knee compression socks not as swollen. Post-op dressing still in place, can come off 1 wk after surgery. Goes back to Dr. Ocampo 01/24/25. no redness or warmth. Has been doing exercises. PT-OP-C Subjective Start: 01/10/25 16:00 Freq: Status: Active Protocol: Document 01/23/25 08:17 SP (Rec: 01/23/25 09:06 SP Laptop) OP-PT Subjective Patient Comments Patient Comments Pt reports he believes he's having an allergic reaction to aspirin so he will reach out to his physician (itchy, rash like around that started on his thighs but is now on his arms and back). He did a lot of walking yesterday with out his single point cane. Has a post-op appointment tomorrow . Was able to complete a set of HEP. PT-OP-D Balance Start: 01/10/25 16:00 Freq: Status: Active Protocol: Document 01/14/25 11:34 [facility] (Rec: 01/14/25 13:36 [facility] Laptop) OP-PT Balance Assessment Sitting Balance Static Sitting Balance Ability Normal Dynamic Sitting Balance Ability Normal Standing Balance Static Standing Balance Ability Fair Dynamic Standing Balance Ability Fair Device Used SPC Standing Balance Comments decreased weight-bearing left LE Tucker Fall Scale Copyright Permission PT-OP-F Manual Assessment Start: 01/10/25 16:00 Freq: Status: Active Protocol: Document 01/14/25 11:34 [facility] (Rec: 01/14/25 13:36 [facility] Laptop) Manual Assessments Soft Tissue Assessment Soft Tissue Mobility Assessment swollen left LE, no excess redness and warmth PT-OP-G Mobility & Gait Start: 01/10/25 16:00 Freq: Status: Active Protocol: Document 01/14/25 11:34 [facility] (Rec: 01/14/25 12:24 [facility] Laptop) OP Mobility Evaluation Bed Mobility Supine to and from Sit SBA, hooks right foot under left to transition sit to supine OP Gait Assessment Gait Gait Assistance Required: Independent Distance (Feet) 50 Able to Maintain Weight Bearing Status Yes During Gait Assistive Devices Assistive Device Straight Cane Gait Deviations General Gait Pattern Antalgic,Decreased Stride Length,Decreased Feet Clearance Factors Limiting Gait Function Factors Limiting Gait Function Decreased Strength,Pain Stair Climbing Evaluation Evaluation Level of Assist On Stairs Standby Assistance Devices Stair Climbing Assistive Devices Straight Cane,Right Railing Technique/Endurance Stair Climbing Direction Ascend and Descend Stair Climbing Technique Step to Step Stair Climbing Set # Repetitions (reps) 4 Comments Stair Climbing Comments 6 stairs PT-OP-H Neuro Start: 01/10/25 16:00 Freq: Status: Active Protocol: Document 01/14/25 11:34 [facility] (Rec: 01/14/25 13:36 [facility] Laptop) Sensation Evaluation Gross Sensation Sensation Description Paresthesia PT-OP-J Posture/Palpation/Skin Start: 01/10/25 16:00 Freq: Status: Active Protocol: Document 01/14/25 11:34 SAK (Rec: 01/14/25 13:36 [facility] Laptop) Palpation Assessment Location left hip Palpation Findings Edema,Soft Tissue Tightness Skin Assessment Incisional Assessment Incision Appearance/Comments covered by op dressing PT-OP-K Range of Motion Start: 01/10/25 16:00 Freq: Status: Active Protocol: Document 01/14/25 11:34 SAK (Rec: 01/14/25 13:36 SAK Laptop) Hip Goniometric Range of Motion Hip Left Active Testing Position Supine Flexion w/Knee Flexed 75 Extension 0 Abduction 40 Right Active Testing Position Supine Hip ROM Limitations Comments rotation not tested this date PT-OP-M Strength Start: 01/10/25 16:00 Freq: Status: Active Protocol: Document 01/14/25 11:34 SAK (Rec: 01/14/25 13:36 SAK Laptop) Hip Strength Hip Manual Muscle Testing Left Comments No MMT due to surgery. Able to flex left hip less than full anti-gravity Right Comments WFL Knee Strength Knee Manual Muscle Testing Left Comments antigravity quads Right Flexion (S2) 5 Normal Extension (L3) 5 Normal Ankle/Foot Strength Ankle and Foot Manual Muscle Testing juanita Dorsiflexion (L4) 5 Normal Plantarflexion (S1) 5 Normal PT-OP-Q Treatments Start: 01/10/25 16:00 Freq: Status: Active Protocol: Document 01/23/25 08:17 SP (Rec: 01/23/25 09:06 SP Laptop) Cardio Equipment Recumbent Stepper (Sci-Fit) Duration (Minutes) 6 Resistance 4 Seat Position 16 Other LE/UE, good gema to increased resistance. Gym Equipment Shuttle Recovery Unilateral Squats Details good form Resistance 37 R (navy + davis), 50 L (navy bands) Shuttle Recovery Platform Stable Reps/Time 15 x2 each Bilateral Squats Details cued knee out with toes Resistance 62 (navy +davis) Shuttle Recovery Platform Stable Reps/Time 20 Therapeutic Exercises Supine Exercises hip ab Supine Exercise Name Reviewed post-op HEP Side left Resistance AROM Reps/Minutes 10x Comments good form, no pain Sidelying Exercises Abduction Sidelying Exercise Name added to HEP with HO Side left Resistance AROM Equipment Used cued lead heel Reps/Minutes 10 Comments cued head to ankle alignment stacked on side, top arm front support clam Side left Resistance AROM Reps/Minutes 2x10 Comments good set up, form and alignment Gait Training Gait Activity level Comments VC's for glute engagement for mid-stance phase on left LE which improved midline trunk and helped normalize gait. stairs Device Used L HR Surface 6 stairs Treatment Focus safety, no increase in pain Comments good form and proper patterning. Required VC's to slow down when ascending stairs, and heel press as well as glute engagement, less momentum ascending on left LE. Manual Therapy Treatment Consent Patient gave verbal consent for manual Yes treatment Soft Tissue Mobilization L hip Mobilization Type Manual Lymphatic Drainage Intensity/Depth Superficial Body Position Supine Comments manual gentle superficial glides with re-ed and review for self application Self-Care/Home Management Treatment Education Patient Education Home Exercise Program,Joint Protection,Pain Management, Posture Other Education Educated pt and provided options for sleeping positioning on back and right side, with pillows between BLEs. PT-OP-R Modalities Start: 01/10/25 16:00 Freq: Status: Active Protocol: Document 01/23/25 08:17 SP (Rec: 01/23/25 09:06 SP Laptop) Hot Pack/Cold Pack Treatment L hip Location Anterior L hip: ice pack Patient Position Hooklying Patient Tolerance Good Comments wedge under thighs/knees PT-OP-T Assessment and Plan Start: 01/10/25 16:00 Freq: Status: Active Protocol: Document 01/23/25 08:17 SP (Rec: 01/23/25 09:06 SP Laptop) Physical Therapy Assessment Goals Three Impairment weakness left LE Short Term Goal (STG) Instruct patient in HEP for purposes of left LE strengthening STG Duration 02/27/25 Cashier Greeter Goal (LTG) Patient will be independent and compliant with HEP and demonstrate improvement in left LE strength to at least 4 +/5 to allow him to return to prior level of function. LTG Duration 04/15/25 Two Impairment Antalgic gait, step-to pattern on stairs Short Term Goal (STG) Patient will be able to ambulate on level surfaces without a limp with least restrictive device STG Duration 02/27/25 Cashier Greeter Goal (LTG) Patient will be able to ambulate on level and uneven surfaces without device without an increase in pain. Alternating step pattern on stairs LTG Duration 04/15/25 One Impairment Lower extremity functional scale 20% Short Term Goal (STG) Improve score to at least 40% as measure of improved activity tolerance and left LE function STG Duration 02/27/25 Mcc Goal (LTG) Improve score to at least 75% as measure of improved activity tolerance and left LE function LTG Duration 04/15/25 Assessment Summary Assessment Improved gait and stair management with verbal cues to engage glutes. Tolerated ther-ex, progressed side lying hip abduction against gravity , cues for alignment. Tolerated increased resistance on bike but did fatigue. Initiated education in use of pillows for positional support when sleeping. Physical Therapy Plan Frequency and Duration Frequency of Treatment 2x/Week Duration of treatment (weeks) 12 Plan of Care Start Date 01/14/25 Plan of Care End Date 04/15/25 Therapeutic Interventions Therapeutic Interventions Gait Training,Home Exercise Program,Manual Therapy, Neuromuscular Re-education, Patient/Caregiver Education, Self-Care/Home Management,Soft Tissue Mobilization,Taping, Therapeutic Activities, Therapeutic Exercises Modalities Cold Pack/Ice Massage,Electric Stimulation,Hot Packs Next Visit Focus/Plan Next Note Type Treatment Note Next Visit Plan Assess response to increased resistance on recumbent stepper, shuttle leg press, alternating pattern 6 stairs. Progress as tolerated LE strengthening, review clam, sidelying hip ab, normalizing gait without AD.
--- NOTE | 2025-01-28 09:01 | PT.OTN ---
Current Diagnoses Unilateral primary osteoarthritis, left hip (01/28/25) Difficulty in walking, not elsewhere classified (01/28/25) Weakness (01/28/25) Physical Therapy Treatment Note PT-OP-A Visit Information Start: 01/10/25 16:00 Freq: Status: Active Protocol: Document 01/28/25 08:10 SAK (Rec: 01/28/25 09:01 SAK Laptop) Out-Patient Physical Therapy Visit Information Visit Information Visit Type Treatment Note Visit Start Time 08:15 Visit Stop Time 09:05 Visit Number 5 Number of PSYCHIATRIC REGISTERED NURSE Visits 0 Evaluation Information Evaluation Date 01/14/25 Precautions Precautions Left anterior FREDRICK PT-OP-B Current Condition Start: 01/10/25 16:00 Freq: Status: Active Protocol: Document 01/28/25 08:10 SAK (Rec: 01/28/25 09:01 [facility] Laptop) Current Condition History of Current Condition Onset Date 01/10/25 Current Complaints s/p left FREDRICK History of Current Condition s/p left anterior FREDRICK 01/10/25. Used Oxycodone first couple days, now off and using Ibuprofen, Tylenol, baby aspirin, ice. No need for anti-nausea. Used walker at first, today first day with cane. Using FWW in the middle of the night. Numbness left lateral LE, has been swollen but wearing above knee compression socks not as swollen. Post-op dressing still in place, can come off 1 wk after surgery. Goes back to Dr. Ocampo 01/24/25. no redness or warmth. Has been doing exercises. PT-OP-C Subjective Start: 01/10/25 16:00 Freq: Status: Active Protocol: Document 01/28/25 08:10 SAK (Rec: 01/28/25 09:01 [facility] Laptop) OP-PT Subjective Patient Comments Patient Comments Reports feeling the best he has since the surgery, walking without cane this am. Now on Elaquis since allergic reaction to aspirin. Saw surgeon, was happy, x-ray looked good. Continue PT, has steri strips on incision left , nothing on incision from robot. Still difficulty with sleep, laying on left side more uncomfortable with pillow vs without. Taking tylenol helfpul. Slept on left side, didn't like use of pillow Next post- op . Patient Reported Progress Improving PT-OP-D Balance Start: 01/10/25 16:00 Freq: Status: Active Protocol: Document 01/14/25 11:34 SAK (Rec: 01/14/25 13:36 [facility] Laptop) OP-PT Balance Assessment Sitting Balance Static Sitting Balance Ability Normal Dynamic Sitting Balance Ability Normal Standing Balance Static Standing Balance Ability Fair Dynamic Standing Balance Ability Fair Device Used SPC Standing Balance Comments decreased weight-bearing left LE Tucker Fall Scale Copyright Permission PT-OP-F Manual Assessment Start: 01/10/25 16:00 Freq: Status: Active Protocol: Document 01/14/25 11:34 SAK (Rec: 01/14/25 13:36 [facility] Laptop) Manual Assessments Soft Tissue Assessment Soft Tissue Mobility Assessment swollen left LE, no excess redness and warmth PT-OP-G Mobility & Gait Start: 01/10/25 16:00 Freq: Status: Active Protocol: Document 01/14/25 11:34 [facility] (Rec: 01/14/25 12:24 [facility] Laptop) OP Mobility Evaluation Bed Mobility Supine to and from Sit SBA, hooks right foot under left to transition sit to supine OP Gait Assessment Gait Gait Assistance Required: Independent Distance (Feet) 50 Able to Maintain Weight Bearing Status Yes During Gait Assistive Devices Assistive Device Straight Cane Gait Deviations General Gait Pattern Antalgic,Decreased Stride Length,Decreased Feet Clearance Factors Limiting Gait Function Factors Limiting Gait Function Decreased Strength,Pain Stair Climbing Evaluation Evaluation Level of Assist On Stairs Standby Assistance Devices Stair Climbing Assistive Devices Straight Cane,Right Railing Technique/Endurance Stair Climbing Direction Ascend and Descend Stair Climbing Technique Step to Step Stair Climbing Set # Repetitions (reps) 4 Comments Stair Climbing Comments 6 stairs PT-OP-H Neuro Start: 01/10/25 16:00 Freq: Status: Active Protocol: Document 01/14/25 11:34 SAK (Rec: 01/14/25 13:36 [facility] Laptop) Sensation Evaluation Gross Sensation Sensation Description Paresthesia PT-OP-J Posture/Palpation/Skin Start: 01/10/25 16:00 Freq: Status: Active Protocol: Document 01/14/25 11:34 SAK (Rec: 01/14/25 13:36 [facility] Laptop) Palpation Assessment Location left hip Palpation Findings Edema,Soft Tissue Tightness Skin Assessment Incisional Assessment Incision Appearance/Comments covered by op dressing PT-OP-K Range of Motion Start: 01/10/25 16:00 Freq: Status: Active Protocol: Document 01/14/25 11:34 SAK (Rec: 01/14/25 13:36 [facility] Laptop) Hip Goniometric Range of Motion Hip Left Active Testing Position Supine Flexion w/Knee Flexed 75 Extension 0 Abduction 40 Right Active Testing Position Supine Hip ROM Limitations Comments rotation not tested this date PT-OP-M Strength Start: 01/10/25 16:00 Freq: Status: Active Protocol: Document 01/14/25 11:34 [facility] (Rec: 01/14/25 13:36 [facility] Laptop) Hip Strength Hip Manual Muscle Testing Left Comments No MMT due to surgery. Able to flex left hip less than full anti-gravity Right Comments WFL Knee Strength Knee Manual Muscle Testing Left Comments antigravity quads Right Flexion (S2) 5 Normal Extension (L3) 5 Normal Ankle/Foot Strength Ankle and Foot Manual Muscle Testing juanita Dorsiflexion (L4) 5 Normal Plantarflexion (S1) 5 Normal PT-OP-Q Treatments Start: 01/10/25 16:00 Freq: Status: Active Protocol: Document 01/28/25 08:10 [facility] (Rec: 01/28/25 09:01 [facility] Laptop) Cardio Equipment Recumbent Stepper (Sci-Fit) Duration (Minutes) 10 Resistance 2-3 Seat Position 16 Other LE/UE, good gema to increased resistance. Gym Equipment Shuttle Recovery Unilateral Squats Details good form Resistance 50 R (navy + davis), 37 L (navy bands) Shuttle Recovery Platform Stable Reps/Time 15 x2 each Bilateral Squats Details cued knee out with toes Resistance 62 (navy +davis) Shuttle Recovery Platform Stable Reps/Time 20 Therapeutic Exercises Sidelying Exercises Abduction Side left Resistance AROM Equipment Used cued lead heel Reps/Minutes 10 Comments cued head to ankle alignment stacked on side, top arm front support clam Side left Resistance AROM Reps/Minutes 2x30 Comments cues for core stab and not rolling body back Standing Exercises resisted walk Standing Exercise Name sidestepping Resistance L1 TB Reps/Minutes 10 ft x 1, 5ft x 2 gastroc and soleus stretch Reps/Minutes 30x2 Comments stretch then active rock fwd and back x 10 sidestepping Side bilateral Reps/Minutes 10 ft x4 Comments cues for pain-free, toes pointed straight ahead Gait Training Gait Activity stairs Device Used L HR Surface 4 stairs hallway Treatment Focus safety, no increase in pain Comments good form and proper patterning. Required VC's to slow down when ascending stairs, and heel press as well as glute engagement, less momentum ascending on left LE. Manual Therapy Treatment Soft Tissue Mobilization L hip Mobilization Type Manual Lymphatic Drainage, Myofascial Release Intensity/Depth Moderate Body Position Supine Comments manual gentle superficial glides with re-ed and review for self application PT-OP-R Modalities Start: 01/10/25 16:00 Freq: Status: Active Protocol: Document 01/28/25 08:10 SAK (Rec: 01/28/25 09:01 [facility]AK Laptop) Hot Pack/Cold Pack Treatment L hip Location Anterior L hip: ice pack Patient Position Hooklying Patient Tolerance Good Comments wedge under thighs/knees PT-OP-T Assessment and Plan Start: 01/10/25 16:00 Freq: Status: Active Protocol: Document 01/28/25 08:10 SAK (Rec: 01/28/25 09:01 SAK Laptop) Physical Therapy Assessment Impairments Impairments Activity Tolerance,Gait, Strength Goals Three Impairment weakness left LE Short Term Goal (STG) Instruct patient in HEP for purposes of left LE strengthening STG Duration 02/27/25 Net Finisher Goal (LTG) Patient will be independent and compliant with HEP and demonstrate improvement in left LE strength to at least 4 +/5 to allow him to return to prior level of function. LTG Duration 04/15/25 Two Impairment Antalgic gait, step-to pattern on stairs Short Term Goal (STG) Patient will be able to ambulate on level surfaces without a limp with least restrictive device STG Duration 02/27/25 Mcfp Goal (LTG) Patient will be able to ambulate on level and uneven surfaces without device without an increase in pain. Alternating step pattern on stairs LTG Duration 04/15/25 One Impairment Lower extremity functional scale 20% Short Term Goal (STG) Improve score to at least 40% as measure of improved activity tolerance and left LE function STG Duration 02/27/25 Mcfp Goal (LTG) Improve score to at least 75% as measure of improved activity tolerance and left LE function LTG Duration 04/15/25 Assessment Summary Assessment Improving gait with min limp, requires cues for clamshell form, added resisted sidestep. Physical Therapy Plan Frequency and Duration Frequency of Treatment 2x/Week Duration of treatment (weeks) 12 Plan of Care Start Date 01/14/25 Plan of Care End Date 04/15/25 Therapeutic Interventions Therapeutic Interventions Gait Training,Home Exercise Program,Manual Therapy, Neuromuscular Re-education, Patient/Caregiver Education, Self-Care/Home Management,Soft Tissue Mobilization,Taping, Therapeutic Activities, Therapeutic Exercises Modalities Cold Pack/Ice Massage,Electric Stimulation,Hot Packs Next Visit Focus/Plan Next Note Type Treatment Note Next Visit Plan Increase resistance on shuttle leg press as tolerated
--- NOTE | 2025-01-30 09:08 | PT.OTN ---
Current Diagnoses Unilateral primary osteoarthritis, left hip (01/30/25) Difficulty in walking, not elsewhere classified (01/30/25) Weakness (01/30/25) Physical Therapy Treatment Note PT-OP-A Visit Information Start: 01/10/25 16:00 Freq: Status: Active Protocol: Document 01/30/25 08:16 SP (Rec: 01/30/25 09:46 SP [id number]) Out-Patient Physical Therapy Visit Information Visit Information Visit Type Treatment Note Visit Note SPTA observed tx with permission of pt, was under direct supervision of ROCAEL Dias. Visit Start Time 08:16 Visit Stop Time 09:08 Visit Number 6 Number of DEAN OF GRADUATE STUDIES Visits 1 Evaluation Information Evaluation Date 01/14/25 Precautions Precautions Left anterior FREDRICK PT-OP-B Current Condition Start: 01/10/25 16:00 Freq: Status: Active Protocol: Document 01/28/25 08:10 SAK (Rec: 01/28/25 09:01 SAK Laptop) Current Condition History of Current Condition Onset Date 01/10/25 Current Complaints s/p left FREDRICK History of Current Condition s/p left anterior FREDRICK 01/10/25. Used Oxycodone first couple days, now off and using Ibuprofen, Tylenol, baby aspirin, ice. No need for anti-nausea. Used walker at first, today first day with cane. Using FWW in the middle of the night. Numbness left lateral LE, has been swollen but wearing above knee compression socks not as swollen. Post-op dressing still in place, can come off 1 wk after surgery. Goes back to Dr. Ocampo 01/24/25. no redness or warmth. Has been doing exercises. PT-OP-C Subjective Start: 01/10/25 16:00 Freq: Status: Active Protocol: Document 01/30/25 08:16 SP (Rec: 01/30/25 09:46 SP [id number]) OP-PT Subjective Patient Comments Patient Comments Pt reports responded well after last tx. 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 He arrives with continued soreness. He has 2nd post on 02/25. PT-OP-D Balance Start: 01/10/25 16:00 Freq: Status: Active Protocol: Document 01/14/25 11:34 [facility] (Rec: 01/14/25 13:36 [facility] Laptop) OP-PT Balance Assessment Sitting Balance Static Sitting Balance Ability Normal Dynamic Sitting Balance Ability Normal Standing Balance Static Standing Balance Ability Fair Dynamic Standing Balance Ability Fair Device Used SPC Standing Balance Comments decreased weight-bearing left LE Tucker Fall Scale Copyright Permission PT-OP-F Manual Assessment Start: 01/10/25 16:00 Freq: Status: Active Protocol: Document 01/14/25 11:34 SAK (Rec: 01/14/25 13:36 [facility] Laptop) Manual Assessments Soft Tissue Assessment Soft Tissue Mobility Assessment swollen left LE, no excess redness and warmth PT-OP-G Mobility & Gait Start: 01/10/25 16:00 Freq: Status: Active Protocol: Document 01/14/25 11:34 [facility] (Rec: 01/14/25 12:24 [facility] Laptop) OP Mobility Evaluation Bed Mobility Supine to and from Sit SBA, hooks right foot under left to transition sit to supine OP Gait Assessment Gait Gait Assistance Required: Independent Distance (Feet) 50 Able to Maintain Weight Bearing Status Yes During Gait Assistive Devices Assistive Device Straight Cane Gait Deviations General Gait Pattern Antalgic,Decreased Stride Length,Decreased Feet Clearance Factors Limiting Gait Function Factors Limiting Gait Function Decreased Strength,Pain Stair Climbing Evaluation Evaluation Level of Assist On Stairs Standby Assistance Devices Stair Climbing Assistive Devices Straight Cane,Right Railing Technique/Endurance Stair Climbing Direction Ascend and Descend Stair Climbing Technique Step to Step Stair Climbing Set # Repetitions (reps) 4 Comments Stair Climbing Comments 6 stairs PT-OP-H Neuro Start: 01/10/25 16:00 Freq: Status: Active Protocol: Document 01/14/25 11:34 [facility] (Rec: 01/14/25 13:36 [facility] Laptop) Sensation Evaluation Gross Sensation Sensation Description Paresthesia PT-OP-J Posture/Palpation/Skin Start: 01/10/25 16:00 Freq: Status: Active Protocol: Document 01/14/25 11:34 SAK (Rec: 01/14/25 13:36 [facility] Laptop) Palpation Assessment Location left hip Palpation Findings Edema,Soft Tissue Tightness Skin Assessment Incisional Assessment Incision Appearance/Comments covered by op dressing PT-OP-K Range of Motion Start: 01/10/25 16:00 Freq: Status: Active Protocol: Document 01/14/25 11:34 SAK (Rec: 01/14/25 13:36 [facility]AK Laptop) Hip Goniometric Range of Motion Hip Left Active Testing Position Supine Flexion w/Knee Flexed 75 Extension 0 Abduction 40 Right Active Testing Position Supine Hip ROM Limitations Comments rotation not tested this date PT-OP-M Strength Start: 01/10/25 16:00 Freq: Status: Active Protocol: Document 01/14/25 11:34 SAK (Rec: 01/14/25 13:36 [facility] Laptop) Hip Strength Hip Manual Muscle Testing Left Comments No MMT due to surgery. Able to flex left hip less than full anti-gravity Right Comments WFL Knee Strength Knee Manual Muscle Testing Left Comments antigravity quads Right Flexion (S2) 5 Normal Extension (L3) 5 Normal Ankle/Foot Strength Ankle and Foot Manual Muscle Testing juanita Dorsiflexion (L4) 5 Normal Plantarflexion (S1) 5 Normal PT-OP-Q Treatments Start: 01/10/25 16:00 Freq: Status: Active Protocol: Document 01/30/25 08:16 SP (Rec: 01/30/25 09:46 SP [id number]) Cardio Equipment Recumbent Stepper (Sci-Fit) Duration (Minutes) 6 Resistance 2 Seat Position 16- 0.96 miles Other LE/UE Gym Equipment Shuttle Recovery Unilateral Squats Details good form Resistance 50 R (2 navy), 37 L (1 navy 1 davis) Shuttle Recovery Platform Stable Reps/Time 20 x2 each Bilateral Squats Details cued knee out with toes Resistance 62 (navy +davis)> 75# 3 navy Shuttle Recovery Platform Stable Reps/Time 20 Therapeutic Exercises Supine Exercises Stretching Supine Exercise Name trialed in PT> added to HEP ( dec HO): SKTC and ITB Side left Equipment Used grasp knee SKTC, ITB leg supported with cane Reps/Minutes 30 SH Comments pnfree and none pull on steristrips, good feedback response dec hip tight. Gait Training Gait Activity stairs Device Used R HR light WB L Surface 6 stairs hallway Treatment Focus safety, no increase in pain Comments good form and proper patterning. Required VC's to slow down when ascending stairs, and heel press as well as glute engagement, less momentum ascending and quick flexion on left LE. Manual Therapy Treatment Consent Patient gave verbal consent for manual Yes treatment Soft Tissue Mobilization L hip Body Location lateral scar, adductor Mobilization Type Manual Lymphatic Drainage, Myofascial Release Intensity/Depth Moderate Body Position Supine Comments lateral scar: manual gentle superficial glides with re-ed and review for self application L proximal Adductor strumming with adjustment in pressure for tolerance. PT-OP-R Modalities Start: 01/10/25 16:00 Freq: Status: Active Protocol: Document 01/30/25 08:16 SP (Rec: 01/30/25 09:46 SP [id number]) Hot Pack/Cold Pack Treatment L hip Location Anterior L hip: ice pack Patient Position Hooklying Patient Tolerance Good Comments wedge under thighs/knees PT-OP-T Assessment and Plan Start: 01/10/25 16:00 Freq: Status: Active Protocol: Document 01/30/25 08:16 SP (Rec: 01/30/25 09:46 SP [id number]) Physical Therapy Assessment Goals Three Impairment weakness left LE Short Term Goal (STG) Instruct patient in HEP for purposes of left LE strengthening STG Duration 02/27/25 Aperture Mask Etcher Goal (LTG) Patient will be independent and compliant with HEP and demonstrate improvement in left LE strength to at least 4 +/5 to allow him to return to prior level of function. LTG Duration 04/15/25 Two Impairment Antalgic gait, step-to pattern on stairs Short Term Goal (STG) Patient will be able to ambulate on level surfaces without a limp with least restrictive device STG Duration 02/27/25 Alf Goal (LTG) Patient will be able to ambulate on level and uneven surfaces without device without an increase in pain. Alternating step pattern on stairs LTG Duration 04/15/25 One Impairment Lower extremity functional scale 20% Short Term Goal (STG) Improve score to at least 40% as measure of improved activity tolerance and left LE function STG Duration 02/27/25 Alf Goal (LTG) Improve score to at least 75% as measure of improved activity tolerance and left LE function LTG Duration 04/15/25 Assessment Summary Assessment Pt improved decreased L hip tightness post manual and added stretching today SKTC and ITB with support cane for home carryover, declined HO. Understood Physical Therapy Plan Frequency and Duration Frequency of Treatment 2x/Week Duration of treatment (weeks) 12 Plan of Care Start Date 01/14/25 Plan of Care End Date 04/15/25 Therapeutic Interventions Therapeutic Interventions Gait Training,Home Exercise Program,Manual Therapy, Neuromuscular Re-education, Patient/Caregiver Education, Self-Care/Home Management,Soft Tissue Mobilization,Taping, Therapeutic Activities, Therapeutic Exercises Modalities Cold Pack/Ice Massage,Electric Stimulation,Hot Packs Next Visit Focus/Plan Next Note Type Treatment Note Next Visit Plan Increase resistance on shuttle leg press as tolerated
--- NOTE | 2025-02-04 09:02 | PT.OTN ---
Current Diagnoses Unilateral primary osteoarthritis, left hip (02/04/25) Difficulty in walking, not elsewhere classified (02/04/25) Weakness (02/04/25) Physical Therapy Treatment Note PT-OP-A Visit Information Start: 01/10/25 16:00 Freq: Status: Active Protocol: Document 02/04/25 08:14 SAK (Rec: 02/04/25 09:02 SAK Laptop) Out-Patient Physical Therapy Visit Information Visit Information Visit Type Treatment Note Visit Start Time 08:15 Visit Number 7 Number of ORDER ANALYST Visits 0 Evaluation Information Evaluation Date 01/14/25 Precautions Precautions Left anterior FREDRICK PT-OP-B Current Condition Start: 01/10/25 16:00 Freq: Status: Active Protocol: Document 02/04/25 08:14 SAK (Rec: 02/04/25 09:02 SAK Laptop) Current Condition History of Current Condition Onset Date 01/10/25 Current Complaints s/p left FREDRICK History of Current Condition s/p left anterior FREDRICK 01/10/25. Used Oxycodone first couple days, now off and using Ibuprofen, Tylenol, baby aspirin, ice. No need for anti-nausea. Used walker at first, today first day with cane. Using FWW in the middle of the night. Numbness left lateral LE, has been swollen but wearing above knee compression socks not as swollen. Post-op dressing still in place, can come off 1 wk after surgery. Goes back to Dr. Ocampo 01/24/25. no redness or warmth. Has been doing exercises. 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 PT-OP-C Subjective Start: 01/10/25 16:00 Freq: Status: Active Protocol: Document 02/04/25 08:14 SAK (Rec: 02/04/25 09:02 SAK Laptop) OP-PT Subjective Patient Comments Patient Comments Pain variable, unpredictable pain, using cane at times PT-OP-D Balance Start: 01/10/25 16:00 Freq: Status: Active Protocol: Document 01/14/25 11:34 SAK (Rec: 01/14/25 13:36 SAK Laptop) OP-PT Balance Assessment Sitting Balance Static Sitting Balance Ability Normal Dynamic Sitting Balance Ability Normal Standing Balance Static Standing Balance Ability Fair Dynamic Standing Balance Ability Fair Device Used SPC Standing Balance Comments decreased weight-bearing left LE Tucker Fall Scale Copyright Permission PT-OP-F Manual Assessment Start: 01/10/25 16:00 Freq: Status: Active Protocol: Document 01/14/25 11:34 [facility] (Rec: 01/14/25 13:36 [facility] Laptop) Manual Assessments Soft Tissue Assessment Soft Tissue Mobility Assessment swollen left LE, no excess redness and warmth PT-OP-G Mobility & Gait Start: 01/10/25 16:00 Freq: Status: Active Protocol: Document 01/14/25 11:34 [facility] (Rec: 01/14/25 12:24 [facility] Laptop) OP Mobility Evaluation Bed Mobility Supine to and from Sit SBA, hooks right foot under left to transition sit to supine OP Gait Assessment Gait Gait Assistance Required: Independent Distance (Feet) 50 Able to Maintain Weight Bearing Status Yes During Gait Assistive Devices Assistive Device Straight Cane Gait Deviations General Gait Pattern Antalgic,Decreased Stride Length,Decreased Feet Clearance Factors Limiting Gait Function Factors Limiting Gait Function Decreased Strength,Pain Stair Climbing Evaluation Evaluation Level of Assist On Stairs Standby Assistance Devices Stair Climbing Assistive Devices Straight Cane,Right Railing Technique/Endurance Stair Climbing Direction Ascend and Descend Stair Climbing Technique Step to Step Stair Climbing Set # Repetitions (reps) 4 Comments Stair Climbing Comments 6 stairs PT-OP-H Neuro Start: 01/10/25 16:00 Freq: Status: Active Protocol: Document 01/14/25 11:34 [facility] (Rec: 01/14/25 13:36 [facility] Laptop) Sensation Evaluation Gross Sensation Sensation Description Paresthesia PT-OP-J Posture/Palpation/Skin Start: 01/10/25 16:00 Freq: Status: Active Protocol: Document 01/14/25 11:34 [facility] (Rec: 01/14/25 13:36 [facility] Laptop) Palpation Assessment Location left hip Palpation Findings Edema,Soft Tissue Tightness Skin Assessment Incisional Assessment Incision Appearance/Comments covered by op dressing PT-OP-K Range of Motion Start: 01/10/25 16:00 Freq: Status: Active Protocol: Document 01/14/25 11:34 [facility] (Rec: 01/14/25 13:36 [facility] Laptop) Hip Goniometric Range of Motion Hip Left Active Testing Position Supine Flexion w/Knee Flexed 75 Extension 0 Abduction 40 Right Active Testing Position Supine Hip ROM Limitations Comments rotation not tested this date PT-OP-M Strength Start: 01/10/25 16:00 Freq: Status: Active Protocol: Document 01/14/25 11:34 [facility] (Rec: 01/14/25 13:36 [facility] Laptop) Hip Strength Hip Manual Muscle Testing Left Comments No MMT due to surgery. Able to flex left hip less than full anti-gravity Right Comments WFL Knee Strength Knee Manual Muscle Testing Left Comments antigravity quads Right Flexion (S2) 5 Normal Extension (L3) 5 Normal Ankle/Foot Strength Ankle and Foot Manual Muscle Testing juanita Dorsiflexion (L4) 5 Normal Plantarflexion (S1) 5 Normal PT-OP-Q Treatments Start: 01/10/25 16:00 Freq: Status: Active Protocol: Document 02/04/25 08:14 [facility]AK (Rec: 02/04/25 09:02 [facility] Laptop) Cardio Equipment Recumbent Stepper (Sci-Fit) Duration (Minutes) 8 Resistance 2-2.5 Seat Position 1.34 mi Other LE/UE Gym Equipment Cable Column (Body Solid) HS curl Resistance 40 Reps/Time 10x2 Shuttle Recovery Unilateral Squats Details good form Resistance 50 juanita Shuttle Recovery Platform Stable Reps/Time 20 x2 each Bilateral Squats Details cued knee out with toes Resistance 75# ([employer]) Shuttle Recovery Platform Stable Reps/Time 20 Shuttle Balance chains red Details bal and wt shift fwd/bck, siode Reps/Duration 6 min Therapeutic Exercises Supine Exercises Stretching Supine Exercise Name HEP Standing Exercises quad stretch Equipment Used chair Reps/Minutes 1x60 L Gait Training Gait Activity level Comments cues stairs Device Used R HR light WB L Surface 4 stairs hallway Treatment Focus safety, no increase in pain Comments good form and proper patterning. Required VC's to slow down when ascending stairs, and heel press as well as glute engagement, less momentum ascending and quick flexion on left LE. Manual Therapy Treatment Soft Tissue Mobilization L hip Body Location lateral scar, adductor Mobilization Type Manual Lymphatic Drainage, Myofascial Release Intensity/Depth Moderate Body Position Supine Comments lateral scar: manual gentle superficial glides with re-ed and review for self application L proximal Adductor strumming with adjustment in pressure for tolerance. PT-OP-R Modalities Start: 01/10/25 16:00 Freq: Status: Active Protocol: Document 02/04/25 08:14 [facility] (Rec: 02/04/25 09:02 [facility] Laptop) Hot Pack/Cold Pack Treatment L hip Location Anterior L hip: ice pack Patient Position Hooklying Patient Tolerance Good Comments wedge under thighs/knees PT-OP-T Assessment and Plan Start: 01/10/25 16:00 Freq: Status: Active Protocol: Document 02/04/25 08:14 [facility] (Rec: 02/04/25 09:02 [facility] Laptop) Physical Therapy Assessment Impairments Impairments Activity Tolerance,Gait, Strength Goals Three Impairment weakness left LE Short Term Goal (STG) Instruct patient in HEP for purposes of left LE strengthening STG Duration 02/27/25 [employer] Goal (LTG) Patient will be independent and compliant with HEP and demonstrate improvement in left LE strength to at least 4 +/5 to allow him to return to prior level of function. LTG Duration 04/15/25 Two Impairment Antalgic gait, step-to pattern on stairs Short Term Goal (STG) Patient will be able to ambulate on level surfaces without a limp with least restrictive device STG Duration 02/27/25 [employer] Goal (LTG) Patient will be able to ambulate on level and uneven surfaces without device without an increase in pain. Alternating step pattern on stairs LTG Duration 04/15/25 One Impairment Lower extremity functional scale 20% Short Term Goal (STG) Improve score to at least 40% as measure of improved activity tolerance and left LE function STG Duration 02/27/25 [employer] Goal (LTG) Improve score to at least 75% as measure of improved activity tolerance and left LE function LTG Duration 04/15/25 Assessment Summary Assessment Pt. symptoms variable, mild limp when enters PT, improved with visual feedback, cues. Gait on stairs 1/2 speed for control especially eccentric, improved control with repetition. Added HS curl, standing quad stretch. Physical Therapy Plan Frequency and Duration Frequency of Treatment 2x/Week Duration of treatment (weeks) 12 Plan of Care Start Date 01/14/25 Plan of Care End Date 04/15/25 Therapeutic Interventions Therapeutic Interventions Gait Training,Home Exercise Program,Manual Therapy, Neuromuscular Re-education, Patient/Caregiver Education, Self-Care/Home Management,Soft Tissue Mobilization,Taping, Therapeutic Activities, Therapeutic Exercises Modalities Cold Pack/Ice Massage,Electric Stimulation,Hot Packs Next Visit Focus/Plan Next Note Type Treatment Note Next Visit Plan assure time for manual therapy to left hip, scar, continue gait training, strengthening, ROM.
--- NOTE | 2025-02-07 12:28 | PT.OTN ---
Current Diagnoses Unilateral primary osteoarthritis, left hip (02/07/25) Difficulty in walking, not elsewhere classified (02/07/25) Weakness (02/07/25) Physical Therapy Treatment Note PT-OP-A Visit Information Start: 01/10/25 16:00 Freq: Status: Active Protocol: Document 02/07/25 11:33 [facility] (Rec: 02/07/25 12:38 [facility] Laptop) Out-Patient Physical Therapy Visit Information Visit Information Visit Type Treatment Note Visit Note Willow VILLALBA led tx with pt's permission and direct supervision of Larissa COTE. Visit Start Time 11:33 Visit Stop Time 12:28 Visit Number 8 Number of COMPLAINT INSPECTOR Visits 1 PT-OP-B Current Condition Start: 01/10/25 16:00 Freq: Status: Active Protocol: Document 02/04/25 08:14 [facility] (Rec: 02/04/25 09:02 SAK Laptop) Current Condition History of Current Condition Onset Date 01/10/25 Current Complaints s/p left FREDRICK History of Current Condition s/p left anterior FREDRICK 01/10/25. Used Oxycodone first couple days, now off and using Ibuprofen, Tylenol, baby aspirin, ice. No need for anti-nausea. Used walker at first, today first day with cane. Using FWW in the middle of the night. Numbness left lateral LE, has been swollen but wearing above knee compression socks not as swollen. Post-op dressing still in place, can come off 1 wk after surgery. Goes back to Dr. Ocampo 01/24/25. no redness or warmth. Has been doing exercises. 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 PT-OP-C Subjective Start: 01/10/25 16:00 Freq: Status: Active Protocol: Document 02/07/25 11:33 [facility] (Rec: 02/07/25 12:38 [facility] Laptop) OP-PT Subjective Patient Comments Patient Comments Sore from tx on Tuesday. Has been able to complete HEP, anything non WBing has been fine but linebacker side to sides have been tough. A lot of swelling yesterday. Pt demonstrated left lateral weight shifting when arriving to the clinic without SPC, PT commented to use SPC to help normalize gait. Pt reported he felt L knee OA is flaring up. PT-OP-D Balance Start: 01/10/25 16:00 Freq: Status: Active Protocol: Document 01/14/25 11:34 [facility] (Rec: 01/14/25 13:36 [facility] Laptop) OP-PT Balance Assessment Sitting Balance Static Sitting Balance Ability Normal Dynamic Sitting Balance Ability Normal Standing Balance Static Standing Balance Ability Fair Dynamic Standing Balance Ability Fair Device Used SPC Standing Balance Comments decreased weight-bearing left LE Tucker Fall Scale Copyright Permission PT-OP-F Manual Assessment Start: 01/10/25 16:00 Freq: Status: Active Protocol: Document 01/14/25 11:34 [facility] (Rec: 01/14/25 13:36 [facility] Laptop) Manual Assessments Soft Tissue Assessment Soft Tissue Mobility Assessment swollen left LE, no excess redness and warmth PT-OP-G Mobility & Gait Start: 01/10/25 16:00 Freq: Status: Active Protocol: Document 01/14/25 11:34 [facility] (Rec: 01/14/25 12:24 [facility] Laptop) OP Mobility Evaluation Bed Mobility Supine to and from Sit SBA, hooks right foot under left to transition sit to supine OP Gait Assessment Gait Gait Assistance Required: Independent Distance (Feet) 50 Able to Maintain Weight Bearing Status Yes During Gait Assistive Devices Assistive Device Straight Cane Gait Deviations General Gait Pattern Antalgic,Decreased Stride Length,Decreased Feet Clearance Factors Limiting Gait Function Factors Limiting Gait Function Decreased Strength,Pain Stair Climbing Evaluation Evaluation Level of Assist On Stairs Standby Assistance Devices Stair Climbing Assistive Devices Straight Cane,Right Railing Technique/Endurance Stair Climbing Direction Ascend and Descend Stair Climbing Technique Step to Step Stair Climbing Set # Repetitions (reps) 4 Comments Stair Climbing Comments 6 stairs PT-OP-H Neuro Start: 01/10/25 16:00 Freq: Status: Active Protocol: Document 01/14/25 11:34 [facility] (Rec: 01/14/25 13:36 [facility] Laptop) Sensation Evaluation Gross Sensation Sensation Description Paresthesia PT-OP-J Posture/Palpation/Skin Start: 01/10/25 16:00 Freq: Status: Active Protocol: Document 01/14/25 11:34 [facility] (Rec: 01/14/25 13:36 [facility] Laptop) Palpation Assessment Location left hip Palpation Findings Edema,Soft Tissue Tightness Skin Assessment Incisional Assessment Incision Appearance/Comments covered by op dressing PT-OP-K Range of Motion Start: 01/10/25 16:00 Freq: Status: Active Protocol: Document 01/14/25 11:34 [facility] (Rec: 01/14/25 13:36 [facility] Laptop) Hip Goniometric Range of Motion Hip Left Active Testing Position Supine Flexion w/Knee Flexed 75 Extension 0 Abduction 40 Right Active Testing Position Supine Hip ROM Limitations Comments rotation not tested this date PT-OP-M Strength Start: 01/10/25 16:00 Freq: Status: Active Protocol: Document 01/14/25 11:34 [facility] (Rec: 01/14/25 13:36 [facility] Laptop) Hip Strength Hip Manual Muscle Testing Left Comments No MMT due to surgery. Able to flex left hip less than full anti-gravity Right Comments WFL Knee Strength Knee Manual Muscle Testing Left Comments antigravity quads Right Flexion (S2) 5 Normal Extension (L3) 5 Normal Ankle/Foot Strength Ankle and Foot Manual Muscle Testing juanita Dorsiflexion (L4) 5 Normal Plantarflexion (S1) 5 Normal PT-OP-Q Treatments Start: 01/10/25 16:00 Freq: Status: Active Protocol: Document 02/07/25 11:33 [facility] (Rec: 02/07/25 12:38 [facility] Laptop) Cardio Equipment Recumbent Stepper (Sci-Fit) Duration (Minutes) 8 Resistance 2.7 Seat Position 15- 1.34 mi Other LE Gym Equipment Cable Column (Body Solid) HS curl Details Reviewed Resistance 40 Reps/Time 10x2 Shuttle Balance chains red Details bal and wt shift fwd/bck/lat, staggered, EO & EC Reps/Duration 30 seconds each Comments v/c's to look forward, engage core and rest UE's. Able to maintain balance with EO with WBOS and staggered stance for 30 sec's. Only able to maintain balance with EC for 4 -6 seconds. Therapeutic Exercises Sitting Exercises HS curl Sitting Exercise Name Added to HEP and provided HO Side bilateral Resistance blue TB (level 4) - latex free Equipment Used TB Reps/Minutes 8x each leg Gait Training Gait Activity level Distance/Duration 1 lap around clinic Treatment Focus Form, patterning and no increase in pn Comments good form and proper patterning. Req'd cues to soften heel strike with LLE. stairs Description acending/decending Device Used R HR Surface 6 staircase x 4 Treatment Focus safety, no increase in pn Comments good form and proper patterning. Required VC's to engage glutes and use less momentum ascending and slow eccentric flexion on L to improve fairly = stance time. Manual Therapy Treatment Soft Tissue Mobilization L hip Body Location lateral scar, adductor Mobilization Type Myofascial Release,Rolling, Sustained Pressure Intensity/Depth Moderate Body Position Hooklying Comments lateral scar: manual gentle superficial glides with re-ed and review for self application L proximal Adductor rolling and sustained pressure with adjustment in pressure for tolerance. wedge under LE's PT-OP-R Modalities Start: 01/10/25 16:00 Freq: Status: Active Protocol: Document 02/07/25 11:33 [facility] (Rec: 02/07/25 12:38 [facility] Laptop) Hot Pack/Cold Pack Treatment L hip Location Anterior L hip: ice pack Patient Position Hooklying Patient Tolerance Good Comments wedge under thighs/knees PT-OP-T Assessment and Plan Start: 01/10/25 16:00 Freq: Status: Active Protocol: Document 02/07/25 11:33 [facility] (Rec: 02/07/25 12:38 [facility] Laptop) Physical Therapy Assessment Impairments Impairments Activity Tolerance,Gait, Strength Goals Three Impairment weakness left LE Short Term Goal (STG) Instruct patient in HEP for purposes of left LE strengthening STG Duration 02/27/25 [facility] Goal (LTG) Patient will be independent and compliant with HEP and demonstrate improvement in left LE strength to at least 4 +/5 to allow him to return to prior level of function. LTG Duration 04/15/25 Two Impairment Antalgic gait, step-to pattern on stairs Short Term Goal (STG) Patient will be able to ambulate on level surfaces without a limp with least restrictive device STG Duration 02/27/25 [employer] Goal (LTG) Patient will be able to ambulate on level and uneven surfaces without device without an increase in pain. Alternating step pattern on stairs LTG Duration 04/15/25 One Impairment Lower extremity functional scale 20% Short Term Goal (STG) Improve score to at least 40% as measure of improved activity tolerance and left LE function STG Duration 02/27/25 [facility] Goal (LTG) Improve score to at least 75% as measure of improved activity tolerance and left LE function LTG Duration 04/15/25 Assessment Summary Assessment Pt walked into tx today sore from prev tx and with a mild limp without SPC, was able to improve with cues. Continued working on balance to improve weightbearing in LLE, fwd/back /lateral taps, staggered stance, EO and EC. Pt was able to maintain balance for 30 for most balancing activities but was challenged by balance with eyes closed and staggered stance. Provided cues to engage core and relax UE's, pt demonstrated good ankle strategy. Reviewed HS curl on cable column, added HS curl in sitting for HEP with HO and level 4 band to continue LLE strengthening. Continued to work on form and proper patterning with gait and ascending/descending stairs. Pt required v/c's to soften heel strike and engage glutes when ascending stairs. Physical Therapy Plan Frequency and Duration Frequency of Treatment 2x/Week Duration of treatment (weeks) 12 Plan of Care Start Date 01/14/25 Plan of Care End Date 04/15/25 Therapeutic Interventions Therapeutic Interventions Gait Training,Home Exercise Program,Manual Therapy, Neuromuscular Re-education, Patient/Caregiver Education, Self-Care/Home Management,Soft Tissue Mobilization,Taping, Therapeutic Activities, Therapeutic Exercises Modalities Cold Pack/Ice Massage,Electric Stimulation,Hot Packs Next Visit Focus/Plan Next Visit Plan Next: How did pt response day after tx, Re-add shuttle leg press. Asses SLR's for HEP. Assure time for manual therapy to left hip, scar, continue gait training, strengthening, ROM.
--- NOTE | 2025-02-12 09:54 | PT.OTN ---
Current Diagnoses Unilateral primary osteoarthritis, left hip (02/12/25) Difficulty in walking, not elsewhere classified (02/12/25) Weakness (02/12/25) Physical Therapy Treatment Note PT-OP-A Visit Information Start: 01/10/25 16:00 Freq: Status: Active Protocol: Document 02/12/25 09:01 PG (Rec: 02/12/25 10:24 PG [id number]) Out-Patient Physical Therapy Visit Information Visit Information Visit Type Treatment Note Visit Note Willow VILLALBA led tx with pt's permission and direct supervision of Larissa COTE. Visit Start Time 09:02 Visit Stop Time 09:54 Visit Number 9 Number of PSYCHOLOGY CLINICIAN Visits 2 PT-OP-B Current Condition Start: 01/10/25 16:00 Freq: Status: Active Protocol: Document 02/04/25 08:14 SAK (Rec: 02/04/25 09:02 SAK Laptop) Current Condition History of Current Condition Onset Date 01/10/25 Current Complaints s/p left FREDRICK History of Current Condition s/p left anterior FREDRICK 01/10/25. Used Oxycodone first couple days, now off and using Ibuprofen, Tylenol, baby aspirin, ice. No need for anti-nausea. Used walker at first, today first day with cane. Using FWW in the middle of the night. Numbness left lateral LE, has been swollen but wearing above knee compression socks not as swollen. Post-op dressing still in place, can come off 1 wk after surgery. Goes back to Dr. Ocampo 01/24/25. no redness or warmth. Has been doing exercises. 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 PT-OP-C Subjective Start: 01/10/25 16:00 Freq: Status: Active Protocol: Document 02/12/25 09:01 PG (Rec: 02/12/25 10:24 PG [id number]) OP-PT Subjective Patient Comments Patient Comments Pt felt great over the weekend , was a little sore after tx last week but was able to do everything he wanted to do this weekend: walking on beach (uneven surfaces), walking up /down stairs w/o any pain. Has his next follow up on the 25 of February, only restriction was a yoga warrior pose. Feels pain in L hip when getting out of bed or the car. Will try to use his unaffected R leg to support under his left to avoid discomfort. PT-OP-D Balance Start: 01/10/25 16:00 Freq: Status: Active Protocol: Document 01/14/25 11:34 [facility] (Rec: 01/14/25 13:36 [facility] Laptop) OP-PT Balance Assessment Sitting Balance Static Sitting Balance Ability Normal Dynamic Sitting Balance Ability Normal Standing Balance Static Standing Balance Ability Fair Dynamic Standing Balance Ability Fair Device Used SPC Standing Balance Comments decreased weight-bearing left LE Tucker Fall Scale Copyright Permission PT-OP-F Manual Assessment Start: 01/10/25 16:00 Freq: Status: Active Protocol: Document 01/14/25 11:34 [facility] (Rec: 01/14/25 13:36 [facility] Laptop) Manual Assessments Soft Tissue Assessment Soft Tissue Mobility Assessment swollen left LE, no excess redness and warmth PT-OP-G Mobility & Gait Start: 01/10/25 16:00 Freq: Status: Active Protocol: Document 01/14/25 11:34 [facility] (Rec: 01/14/25 12:24 [facility] Laptop) OP Mobility Evaluation Bed Mobility Supine to and from Sit SBA, hooks right foot under left to transition sit to supine OP Gait Assessment Gait Gait Assistance Required: Independent Distance (Feet) 50 Able to Maintain Weight Bearing Status Yes During Gait Assistive Devices Assistive Device Straight Cane Gait Deviations General Gait Pattern Antalgic,Decreased Stride Length,Decreased Feet Clearance Factors Limiting Gait Function Factors Limiting Gait Function Decreased Strength,Pain Stair Climbing Evaluation Evaluation Level of Assist On Stairs Standby Assistance Devices Stair Climbing Assistive Devices Straight Cane,Right Railing Technique/Endurance Stair Climbing Direction Ascend and Descend Stair Climbing Technique Step to Step Stair Climbing Set # Repetitions (reps) 4 Comments Stair Climbing Comments 6 stairs PT-OP-H Neuro Start: 01/10/25 16:00 Freq: Status: Active Protocol: Document 01/14/25 11:34 [facility] (Rec: 01/14/25 13:36 [facility] Laptop) Sensation Evaluation Gross Sensation Sensation Description Paresthesia PT-OP-J Posture/Palpation/Skin Start: 01/10/25 16:00 Freq: Status: Active Protocol: Document 01/14/25 11:34 [facility] (Rec: 01/14/25 13:36 [facility] Laptop) Palpation Assessment Location left hip Palpation Findings Edema,Soft Tissue Tightness Skin Assessment Incisional Assessment Incision Appearance/Comments covered by op dressing PT-OP-K Range of Motion Start: 01/10/25 16:00 Freq: Status: Active Protocol: Document 01/14/25 11:34 SAK (Rec: 01/14/25 13:36 [facility] Laptop) Hip Goniometric Range of Motion Hip Left Active Testing Position Supine Flexion w/Knee Flexed 75 Extension 0 Abduction 40 Right Active Testing Position Supine Hip ROM Limitations Comments rotation not tested this date PT-OP-M Strength Start: 01/10/25 16:00 Freq: Status: Active Protocol: Document 01/14/25 11:34 [facility] (Rec: 01/14/25 13:36 [facility] Laptop) Hip Strength Hip Manual Muscle Testing Left Comments No MMT due to surgery. Able to flex left hip less than full anti-gravity Right Comments WFL Knee Strength Knee Manual Muscle Testing Left Comments antigravity quads Right Flexion (S2) 5 Normal Extension (L3) 5 Normal Ankle/Foot Strength Ankle and Foot Manual Muscle Testing juanita Dorsiflexion (L4) 5 Normal Plantarflexion (S1) 5 Normal PT-OP-Q Treatments Start: 01/10/25 16:00 Freq: Status: Active Protocol: Document 02/12/25 09:01 PG (Rec: 02/12/25 10:24 PG [id number]) Cardio Equipment Recumbent Stepper (Sci-Fit) Duration (Minutes) 8 Resistance level 7 Seat Position 13, arms: 7 Other Nustep Gym Equipment Shuttle Recovery Unilateral Squats Details good form Resistance 50 juanita Shuttle Recovery Platform Stable Reps/Time 20 x2 each Bilateral Squats Details cued knee out with toes Resistance 75# (2 navy 1 teal) Shuttle Recovery Platform Stable Reps/Time 20 Shuttle Balance chains red Details bal and wt shift fwd/bck/lat, staggered, EO & EC Reps/Duration 20 taps each, balance: 30 seconds each Comments cues to engage core, look forward 5% of assistance from SPTA when balancing with EC. Only able to hold balance laterally with EC for about 10 seconds. Therapeutic Exercises Sitting Exercises HS curl Sitting Exercise Name verbally reviewed Standing Exercises Glute Med Standing Exercise Name Glute med at wall, hip/knee flexed, side of body at wall, slide thigh up Reps/Minutes 5x each leg Comments cues to lift leg against wall, added to HEP with HO Other Exercises Step ups Other Exercise Name forward/lateral step ups, trialed continuous w/o stepping dwn Side bilateral Resistance left Equipment Used 6inch step, one handrail Reps/Minutes x10 each way Comments cues for glute engagmnt, prevent knee going over toe, neutral knee aliign PT-OP-R Modalities Start: 01/10/25 16:00 Freq: Status: Active Protocol: Document 02/12/25 09:01 PG (Rec: 02/12/25 10:24 PG [id number]) Hot Pack/Cold Pack Treatment L hip Location Anterior L hip: ice pack Patient Position Hooklying Patient Tolerance Good Comments wedge under thighs/knees PT-OP-T Assessment and Plan Start: 01/10/25 16:00 Freq: Status: Active Protocol: Document 02/12/25 09:01 PG (Rec: 02/12/25 10:24 PG [id number]) Physical Therapy Assessment Impairments Impairments Activity Tolerance,Gait, Strength Goals Three Impairment weakness left LE Short Term Goal (STG) Instruct patient in HEP for purposes of left LE strengthening STG Duration 02/27/25 Custodial Goal (LTG) Patient will be independent and compliant with HEP and demonstrate improvement in left LE strength to at least 4 +/5 to allow him to return to prior level of function. LTG Duration 04/15/25 Two Impairment Antalgic gait, step-to pattern on stairs Short Term Goal (STG) Patient will be able to ambulate on level surfaces without a limp with least restrictive device STG Duration 02/27/25 Custodial Goal (LTG) Patient will be able to ambulate on level and uneven surfaces without device without an increase in pain. Alternating step pattern on stairs LTG Duration 04/15/25 One Impairment Lower extremity functional scale 20% Short Term Goal (STG) Improve score to at least 40% as measure of improved activity tolerance and left LE function STG Duration 02/27/25 Client Resource Specialist Goal (LTG) Improve score to at least 75% as measure of improved activity tolerance and left LE function LTG Duration 04/15/25 Assessment Summary Assessment Focused on strengthening in today's treatment. Introduced step ups and glute med strengthening at the wall to help strengthen L glutes and hip flexors to decrease discomfort due to potential hip weakness when getting out of the bed or car. Provided HO for glute med exercise. Step ups on 6inch step were easy but continuous step ups with the LLE a touch down with the R LE created discomfort in the knee, cued to keep knee from going over toe, hinge at hips, making sure knee alignment maintains neutral. Pt tolerated balance shuttle well today, did require 0-5% of assistance from SPTA when eyes are closed. Did not leave enough time for manual today but did provide ice pack to decrease any post tx inflammation. Physical Therapy Plan Frequency and Duration Frequency of Treatment 2x/Week Duration of treatment (weeks) 12 Plan of Care Start Date 01/14/25 Plan of Care End Date 04/15/25 Therapeutic Interventions Therapeutic Interventions Gait Training,Home Exercise Program,Manual Therapy, Neuromuscular Re-education, Patient/Caregiver Education, Self-Care/Home Management,Soft Tissue Mobilization,Taping, Therapeutic Activities, Therapeutic Exercises Modalities Cold Pack/Ice Massage,Electric Stimulation,Hot Packs Next Visit Focus/Plan Next Note Type Treatment Note Next Visit Plan Next: POC and PN in next 2 visits, manual, How did pt respond day after tx? Assess SLR's for HEP. Assure time for manual therapy to left hip, scar, continue gait training, strengthening, ROM.
--- NOTE | 2025-02-14 16:34 | PT.OTN ---
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 Used Oxycodone first couple days, now off and using Ibuprofen, Tylenol, baby aspirin, ice. No need for anti-nausea. Used walker at first, today first day with cane. Using FWW in the middle of the night. Numbness left lateral LE, has been swollen but wearing above knee compression socks not as swollen. Post-op dressing still in place, can come off 1 wk after surgery. Goes back to Dr. Ocampo 01/24/25. no redness or warmth. Has been doing exercises. PT-OP-C Subjective Start: 01/10/25 16:00 Freq: Status: Active Protocol: Document 02/14/25 15:15 SAK (Rec: 02/14/25 16:34 SAK Laptop) OP-PT Subjective Patient Comments Patient Comments Still feeling some pain when leg is hanging, getting better most every day. 5 wks post -op today. States incision mostly healed, just a little scab at top of incision. Being careful, letting pain be the guide. SLR still painful. No aspirin for more than a week. PT-OP-D Balance Start: 01/10/25 16:00 Freq: Status: Active Protocol: Document 01/14/25 11:34 SAK (Rec: 01/14/25 13:36 SAK Laptop) OP-PT Balance Assessment Sitting Balance Static Sitting Balance Ability Normal Dynamic Sitting Balance Ability Normal Standing Balance Static Standing Balance Ability Fair Dynamic Standing Balance Ability Fair Device Used SPC Standing Balance Comments decreased weight-bearing left LE Tucker Fall Scale Copyright Permission PT-OP-F Manual Assessment Start: 01/10/25 16:00 Freq: Status: Active Protocol: Document 01/14/25 11:34 [facility] (Rec: 01/14/25 13:36 [facility] Laptop) Manual Assessments Soft Tissue Assessment Soft Tissue Mobility Assessment swollen left LE, no excess redness and warmth PT-OP-G Mobility & Gait Start: 01/10/25 16:00 Freq: Status: Active Protocol: Document 01/14/25 11:34 [facility] (Rec: 01/14/25 12:24 [facility] Laptop) OP Mobility Evaluation Bed Mobility Supine to and from Sit SBA, hooks right foot under left to transition sit to supine OP Gait Assessment Gait Gait Assistance Required: Independent Distance (Feet) 50 Able to Maintain Weight Bearing Status Yes During Gait Assistive Devices Assistive Device Straight Cane Gait Deviations General Gait Pattern Antalgic,Decreased Stride Length,Decreased Feet Clearance Factors Limiting Gait Function Factors Limiting Gait Function Decreased Strength,Pain Stair Climbing Evaluation Evaluation Level of Assist On Stairs Standby Assistance Devices Stair Climbing Assistive Devices Straight Cane,Right Railing Technique/Endurance Stair Climbing Direction Ascend and Descend Stair Climbing Technique Step to Step Stair Climbing Set # Repetitions (reps) 4 Comments Stair Climbing Comments 6 stairs PT-OP-H Neuro Start: 01/10/25 16:00 Freq: Status: Active Protocol: Document 01/14/25 11:34 [facility] (Rec: 01/14/25 13:36 [facility] Laptop) Sensation Evaluation Gross Sensation Sensation Description Paresthesia PT-OP-J Posture/Palpation/Skin Start: 01/10/25 16:00 Freq: Status: Active Protocol: Document 01/14/25 11:34 [facility] (Rec: 01/14/25 13:36 [facility] Laptop) Palpation Assessment Location left hip Palpation Findings Edema,Soft Tissue Tightness Skin Assessment Incisional Assessment Incision Appearance/Comments covered by op dressing PT-OP-K Range of Motion Start: 01/10/25 16:00 Freq: Status: Active Protocol: Document 01/14/25 11:34 [facility] (Rec: 01/14/25 13:36 [facility] Laptop) Hip Goniometric Range of Motion Hip Left Active Testing Position Supine Flexion w/Knee Flexed 75 Extension 0 Abduction 40 Right Active Testing Position Supine Hip ROM Limitations Comments rotation not tested this date PT-OP-M Strength Start: 01/10/25 16:00 Freq: Status: Active Protocol: Document 01/14/25 11:34 [facility] (Rec: 01/14/25 13:36 [facility] Laptop) Hip Strength Hip Manual Muscle Testing Left Comments No MMT due to surgery. Able to flex left hip less than full anti-gravity Right Comments WFL Knee Strength Knee Manual Muscle Testing Left Comments antigravity quads Right Flexion (S2) 5 Normal Extension (L3) 5 Normal Ankle/Foot Strength Ankle and Foot Manual Muscle Testing juanita Dorsiflexion (L4) 5 Normal Plantarflexion (S1) 5 Normal PT-OP-Q Treatments Start: 01/10/25 16:00 Freq: Status: Active Protocol: Document 02/14/25 15:15 [facility] (Rec: 02/14/25 16:34 [facility] Laptop) Cardio Equipment Bicycle (Upright) Duration (Minutes) 10 Resistance 5 Seat Position 9 Gym Equipment Shuttle Recovery Unilateral Squats Details good form Resistance 75 right, 50>62 Shuttle Recovery Platform Stable Reps/Time 20 x2 each Bilateral Squats Details cued knee out with toes Resistance 87# (2 navy 1 teal) Shuttle Recovery Platform Stable Reps/Time 20 Shuttle Balance chains red Details bal and wt shift fwd/bck/lat, staggered, EO & EC Reps/Duration 20 taps each, balance: 30 seconds each Comments cues to engage core, look forward 5% of assistance from SPTA when balancing with EC. Only able to hold balance laterally with EC for about 10 seconds. Therapeutic Exercises Standing Exercises March Equipment Used mirror Reps/Minutes 20 ft Comments feedback for neutral LE HC stretch Reps/Minutes 2x30 Glute Med Standing Exercise Name Glute med at wall, hip/knee flexed, side of body at wall, slide thigh up Reps/Minutes 5x each leg Comments cues to lift leg against wall, quad stretch Standing Exercise Name verbal review resisted walk Standing Exercise Name verbal review gastroc and soleus stretch Equipment Used KENIA Reps/Minutes 30x2 Comments stretch then active rock fwd and back x 10 Manual Therapy Treatment Soft Tissue Mobilization L hip Body Location med and lateral to scar Mobilization Type Manual Lymphatic Drainage, Myofascial Release,Rolling, Sustained Pressure Intensity/Depth Moderate Body Position Hooklying PT-OP-R Modalities Start: 01/10/25 16:00 Freq: Status: Active Protocol: Document 02/14/25 15:15 SAK (Rec: 02/14/25 16:34 [facility] Laptop) Hot Pack/Cold Pack Treatment L hip Location Anterior L hip: ice pack Patient Position Hooklying Patient Tolerance Good Comments pillows under knees and end of table elevated PT-OP-T Assessment and Plan Start: 01/10/25 16:00 Freq: Status: Active Protocol: Document 02/14/25 15:15 [facility] (Rec: 02/14/25 16:34 [facility] Laptop) Physical Therapy Assessment Impairments Impairments Activity Tolerance,Gait, Strength Goals Four Impairment decreased soft tissue mobility of scar Die Machine Operator Goal (LTG) Normalize surgical scar mobility for improved left hip function. Three Impairment weakness left LE Short Term Goal (STG) Instruct patient in HEP for purposes of left LE strengthening 02/14/25: goal met (ongoing progression). Patient verbalizing good compliance. STG Duration Goal met Care Home Goal (LTG) Patient will be independent and compliant with HEP and demonstrate improvement in left LE strength to at least 4 +/5 to allow him to return to prior level of function. LTG Duration 04/15/25 Two Impairment Antalgic gait, step-to pattern on stairs Short Term Goal (STG) Patient will be able to ambulate on level surfaces without a limp with least restrictive device 25: goal met STG Duration goal met Care Home Goal (LTG) Patient will be able to ambulate on level and uneven surfaces without device without an increase in pain. Alternating step pattern on stairs LTG Duration 04/15/25 One Impairment Lower extremity functional scale 20% Short Term Goal (STG) Improve score to at least 40% as measure of improved activity tolerance and left LE function 02/14/25: 76% goal met STG Duration goal met Die Machine Operator Goal (LTG) Improve score to at least 75% as measure of improved activity tolerance and left LE function 02/14/25: goal met. Goal updated to 85% LTG Duration 04/15/25 Assessment Summary Assessment Progressed to exercise bike, increased resistance on shuttle leg press. Improving gait and functional strength. Good goal progress. Physical Therapy Plan Frequency and Duration Frequency of Treatment 2x/Week Duration of treatment (weeks) 12 Plan of Care Start Date 01/14/25 Plan of Care End Date 04/15/25 Therapeutic Interventions Therapeutic Interventions Gait Training,Home Exercise Program,Manual Therapy, Neuromuscular Re-education, Patient/Caregiver Education, Self-Care/Home Management,Soft Tissue Mobilization,Taping, Therapeutic Activities, Therapeutic Exercises Modalities Cold Pack/Ice Massage,Electric Stimulation,Hot Packs Next Visit Focus/Plan Next Note Type Treatment Note Next Visit Plan Assess response to increase in wt on shuttle leg press, trial ex bike, marching. Continue therapeutic exercise progression, soft tissue mobilization including suction tool on scar when heeled sufficiently.
--- NOTE | 2025-02-19 09:46 | PT.OTN ---
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 Used Oxycodone first couple days, now off and using Ibuprofen, Tylenol, baby aspirin, ice. No need for anti-nausea. Used walker at first, today first day with cane. Using FWW in the middle of the night. Numbness left lateral LE, has been swollen but wearing above knee compression socks not as swollen. Post-op dressing still in place, can come off 1 wk after surgery. Goes back to Dr. Ocampo 01/24/25. no redness or warmth. Has been doing exercises. 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 PT-OP-C Subjective Start: 01/10/25 16:00 Freq: Status: Active Protocol: Document 02/19/25 08:59 SAK (Rec: 02/19/25 09:45 SAK Laptop) OP-PT Subjective Patient Comments Patient Comments Overdid over the weekend, working on his boat; cleaning, scrubbing, crawling. PT-OP-D Balance Start: 01/10/25 16:00 Freq: Status: Active Protocol: Document 01/14/25 11:34 SAK (Rec: 01/14/25 13:36 SAK Laptop) OP-PT Balance Assessment Sitting Balance Static Sitting Balance Ability Normal Dynamic Sitting Balance Ability Normal Standing Balance Static Standing Balance Ability Fair Dynamic Standing Balance Ability Fair Device Used SPC Standing Balance Comments decreased weight-bearing left LE Tucker Fall Scale Copyright Permission PT-OP-F Manual Assessment Start: 01/10/25 16:00 Freq: Status: Active Protocol: Document 01/14/25 11:34 [facility] (Rec: 01/14/25 13:36 [facility] Laptop) Manual Assessments Soft Tissue Assessment Soft Tissue Mobility Assessment swollen left LE, no excess redness and warmth PT-OP-G Mobility & Gait Start: 01/10/25 16:00 Freq: Status: Active Protocol: Document 01/14/25 11:34 [facility] (Rec: 01/14/25 12:24 [facility] Laptop) OP Mobility Evaluation Bed Mobility Supine to and from Sit SBA, hooks right foot under left to transition sit to supine OP Gait Assessment Gait Gait Assistance Required: Independent Distance (Feet) 50 Able to Maintain Weight Bearing Status Yes During Gait Assistive Devices Assistive Device Straight Cane Gait Deviations General Gait Pattern Antalgic,Decreased Stride Length,Decreased Feet Clearance Factors Limiting Gait Function Factors Limiting Gait Function Decreased Strength,Pain Stair Climbing Evaluation Evaluation Level of Assist On Stairs Standby Assistance Devices Stair Climbing Assistive Devices Straight Cane,Right Railing Technique/Endurance Stair Climbing Direction Ascend and Descend Stair Climbing Technique Step to Step Stair Climbing Set # Repetitions (reps) 4 Comments Stair Climbing Comments 6 stairs PT-OP-H Neuro Start: 01/10/25 16:00 Freq: Status: Active Protocol: Document 01/14/25 11:34 [facility] (Rec: 01/14/25 13:36 [facility] Laptop) Sensation Evaluation Gross Sensation Sensation Description Paresthesia PT-OP-J Posture/Palpation/Skin Start: 01/10/25 16:00 Freq: Status: Active Protocol: Document 01/14/25 11:34 [facility] (Rec: 01/14/25 13:36 [facility] Laptop) Palpation Assessment Location left hip Palpation Findings Edema,Soft Tissue Tightness Skin Assessment Incisional Assessment Incision Appearance/Comments covered by op dressing PT-OP-K Range of Motion Start: 01/10/25 16:00 Freq: Status: Active Protocol: Document 01/14/25 11:34 [facility] (Rec: 01/14/25 13:36 [facility] Laptop) Hip Goniometric Range of Motion Hip Left Active Testing Position Supine Flexion w/Knee Flexed 75 Extension 0 Abduction 40 Right Active Testing Position Supine Hip ROM Limitations Comments rotation not tested this date PT-OP-M Strength Start: 01/10/25 16:00 Freq: Status: Active Protocol: Document 01/14/25 11:34 [facility] (Rec: 01/14/25 13:36 [facility] Laptop) Hip Strength Hip Manual Muscle Testing Left Comments No MMT due to surgery. Able to flex left hip less than full anti-gravity Right Comments WFL Knee Strength Knee Manual Muscle Testing Left Comments antigravity quads Right Flexion (S2) 5 Normal Extension (L3) 5 Normal Ankle/Foot Strength Ankle and Foot Manual Muscle Testing juanita Dorsiflexion (L4) 5 Normal Plantarflexion (S1) 5 Normal PT-OP-Q Treatments Start: 01/10/25 16:00 Freq: Status: Active Protocol: Document 02/19/25 08:59 [facility] (Rec: 02/19/25 09:45 [facility] Laptop) Cardio Equipment Bicycle (Upright) Duration (Minutes) 10 Resistance 7 Seat Position 9 Gym Equipment Cable Column (Body Solid) HS curl Resistance 50 Reps/Time 10x2 Shuttle Recovery Unilateral Squats Details good form Resistance 75 right, 50>62 Shuttle Recovery Platform Stable Reps/Time 20 x2 each Bilateral Squats Details cued knee out with toes Resistance 87# (2 navy 1 teal) Shuttle Recovery Platform Stable Reps/Time 20 Shuttle Balance chains red Details bal and wt shift fwd/bck/lat, staggered, EO & EC Reps/Duration 20 taps each, balance: 30 seconds each Comments cues to engage core, look forward 5% of assistance from SPTA when balancing with EC. Only able to hold balance laterally with EC for about 10 seconds. Therapeutic Exercises Sidelying Exercises Abduction Side left Resistance L3 TB (Latex Free) Equipment Used cued lead heel Reps/Minutes 10 Comments cued head to ankle alignment stacked on side, top arm front support clam Side left Resistance L3 TB (Latex Free) Reps/Minutes 10 Comments cues for core stab and not rolling body back Standing Exercises March Equipment Used mirror Reps/Minutes 20 ft Comments feedback for neutral LE resisted walk Resistance L2 TB Equipment Used L2 TB gastroc and soleus stretch Equipment Used KENIA Reps/Minutes 30x2 Comments stretch then active rock fwd and back x 10 Other Exercises Step ups Other Exercise Name forward/lateral step ups, trialed continuous w/o stepping dwn Side bilateral Resistance left Equipment Used 4inch step, one handrail Reps/Minutes x10 each way Comments cues for glute engagmnt, prevent knee going over toe, neutral knee aliign Neuro Re-Education Treatment Balance Activities SLS Surface BOSU Reps/Duration 4x30 step-ups Surface BOSU Reps/Duration 10x2 PT-OP-R Modalities Start: 01/10/25 16:00 Freq: Status: Active Protocol: Document 02/19/25 08:59 [facility] (Rec: 02/19/25 09:46 SAK Laptop) Hot Pack/Cold Pack Treatment L hip Location Anterior L hip: ice pack Patient Position Prone Patient Tolerance Good Comments pillows under knees and end of table elevated PT-OP-T Assessment and Plan Start: 01/10/25 16:00 Freq: Status: Active Protocol: Document 02/19/25 08:59 [facility] (Rec: 02/19/25 09:45 [facility] Laptop) Physical Therapy Assessment Impairments Impairments Activity Tolerance,Gait, Strength Goals Four Impairment decreased soft tissue mobility of scar Tire Buffer Goal (LTG) Normalize surgical scar mobility for improved left hip function. Three Impairment weakness left LE Short Term Goal (STG) Instruct patient in HEP for purposes of left LE strengthening 02/14/25: goal met (ongoing progression). Patient verbalizing good compliance. STG Duration Goal met Mcc Goal (LTG) Patient will be independent and compliant with HEP and demonstrate improvement in left LE strength to at least 4 +/5 to allow him to return to prior level of function. LTG Duration 04/15/25 Two Impairment Antalgic gait, step-to pattern on stairs Short Term Goal (STG) Patient will be able to ambulate on level surfaces without a limp with least restrictive device 25: goal met STG Duration goal met Mcc Goal (LTG) Patient will be able to ambulate on level and uneven surfaces without device without an increase in pain. Alternating step pattern on stairs LTG Duration 04/15/25 One Impairment Lower extremity functional scale 20% Short Term Goal (STG) Improve score to at least 40% as measure of improved activity tolerance and left LE function 02/14/25: 76% goal met STG Duration goal met Tire Buffer Goal (LTG) Improve score to at least 75% as measure of improved activity tolerance and left LE function 02/14/25: goal met. Goal updated to 85% LTG Duration 04/15/25 Assessment Summary Assessment Decreasing pain except overdid over weekend. Added BOSU step up with good tolerance. Improved eccentric control on stairs. Added TB to clam and hip ab Physical Therapy Plan Frequency and Duration Frequency of Treatment 2x/Week Duration of treatment (weeks) 12 Plan of Care Start Date 01/14/25 Plan of Care End Date 04/15/25 Therapeutic Interventions Therapeutic Interventions Gait Training,Home Exercise Program,Manual Therapy, Neuromuscular Re-education, Patient/Caregiver Education, Self-Care/Home Management,Soft Tissue Mobilization,Taping, Therapeutic Activities, Therapeutic Exercises Modalities Cold Pack/Ice Massage,Electric Stimulation,Hot Packs Next Visit Focus/Plan Next Note Type Treatment Note Next Visit Plan Continue to progress strengthening
--- NOTE | 2025-02-21 15:47 | PT.OTN ---
Current Diagnoses Unilateral primary osteoarthritis, left hip (02/21/25) Difficulty in walking, not elsewhere classified (02/21/25) Weakness (02/21/25) Physical Therapy Treatment Note PT-OP-A Visit Information Start: 01/10/25 16:00 Freq: Status: Active Protocol: Document 02/21/25 13:02 PG (Rec: 02/21/25 15:37 [facility] Laptop) Out-Patient Physical Therapy Visit Information Visit Information Visit Type Treatment Note Visit Note SPTA led tx with permission of pt and direct supervision of Larissa COTE. Visit Start Time 13:02 Visit Stop Time 13:51 Visit Number [address] SAFETY ENGINEER Vis[address] 1 PT-OP-B Current Condition Start: 01/10/25 16:00 Freq: Status: Active Protocol: Document 02/19/25 08:59 SAK (Rec: 02/19/25 09:45 SAK Laptop) Current Condition History of Current Condition Onset Date 01/10/25 Current Complaints s/p left FREDRICK History of Current Condition s/p left anterior FREDRICK 01/10/25. Used Oxycodone first couple days, now off and using Ibuprofen, Tylenol, baby aspirin, ice. No need for anti-nausea. Used walker at first, today first day with cane. Using FWW in the middle of the night. Numbness left lateral LE, has been swollen but wearing above knee compression socks not as swollen. Post-op dressing still in place, can come off 1 wk after surgery. Goes back to Dr. Ocampo 01/24/25. no redness or warmth. Has been doing exercises. 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 PT-OP-C Subjective Start: 01/10/25 16:00 Freq: Status: Active Protocol: Document 02/21/25 13:02 PG (Rec: 02/21/25 15:37 PG Laptop) OP-PT Subjective Patient Comments Patient Comments Sore after tx on tuesday ( thigh and hip), did a little walking yesterday but was in a lot of pain, thigh better today but feeling sore in the hip still. Took Tylenol: Tue, Tue, today and ice to to help with pain reduction. PT-OP-D Balance Start: 01/10/25 16:00 Freq: Status: Active Protocol: Document 01/14/25 11:34 [facility] (Rec: 01/14/25 13:36 [facility] Laptop) OP-PT Balance Assessment Sitting Balance Static Sitting Balance Ability Normal Dynamic Sitting Balance Ability Normal Standing Balance Static Standing Balance Ability Fair Dynamic Standing Balance Ability Fair Device Used SPC Standing Balance Comments decreased weight-bearing left LE Tucker Fall Scale Copyright Permission PT-OP-F Manual Assessment Start: 01/10/25 16:00 Freq: Status: Active Protocol: Document 01/14/25 11:34 [facility] (Rec: 01/14/25 13:36 [facility] Laptop) Manual Assessments Soft Tissue Assessment Soft Tissue Mobility Assessment swollen left LE, no excess redness and warmth PT-OP-G Mobility & Gait Start: 01/10/25 16:00 Freq: Status: Active Protocol: Document 01/14/25 11:34 [facility] (Rec: 01/14/25 12:24 [facility] Laptop) OP Mobility Evaluation Bed Mobility Supine to and from Sit SBA, hooks right foot under left to transition sit to supine OP Gait Assessment Gait Gait Assistance Required: Independent Distance (Feet) 50 Able to Maintain Weight Bearing Status Yes During Gait Assistive Devices Assistive Device Straight Cane Gait Deviations General Gait Pattern Antalgic,Decreased Stride Length,Decreased Feet Clearance Factors Limiting Gait Function Factors Limiting Gait Function Decreased Strength,Pain Stair Climbing Evaluation Evaluation Level of Assist On Stairs Standby Assistance Devices Stair Climbing Assistive Devices Straight Cane,Right Railing Technique/Endurance Stair Climbing Direction Ascend and Descend Stair Climbing Technique Step to Step Stair Climbing Set # Repetitions (reps) 4 Comments Stair Climbing Comments 6 stairs PT-OP-H Neuro Start: 01/10/25 16:00 Freq: Status: Active Protocol: Document 01/14/25 11:34 [facility] (Rec: 01/14/25 13:36 [facility] Laptop) Sensation Evaluation Gross Sensation Sensation Description Paresthesia PT-OP-J Posture/Palpation/Skin Start: 01/10/25 16:00 Freq: Status: Active Protocol: Document 01/14/25 11:34 [facility] (Rec: 01/14/25 13:36 [facility] Laptop) Palpation Assessment Location left hip Palpation Findings Edema,Soft Tissue Tightness Skin Assessment Incisional Assessment Incision Appearance/Comments covered by op dressing PT-OP-K Range of Motion Start: 01/10/25 16:00 Freq: Status: Active Protocol: Document 01/14/25 11:34 SAK (Rec: 01/14/25 13:36 SAK Laptop) Hip Goniometric Range of Motion Hip Left Active Testing Position Supine Flexion w/Knee Flexed 75 Extension 0 Abduction 40 Right Active Testing Position Supine Hip ROM Limitations Comments rotation not tested this date PT-OP-M Strength Start: 01/10/25 16:00 Freq: Status: Active Protocol: Document 01/14/25 11:34 [facility]AK (Rec: 01/14/25 13:36 [facility] Laptop) Hip Strength Hip Manual Muscle Testing Left Comments No MMT due to surgery. Able to flex left hip less than full anti-gravity Right Comments WFL Knee Strength Knee Manual Muscle Testing Left Comments antigravity quads Right Flexion (S2) 5 Normal Extension (L3) 5 Normal Ankle/Foot Strength Ankle and Foot Manual Muscle Testing juanita Dorsiflexion (L4) 5 Normal Plantarflexion (S1) 5 Normal PT-OP-Q Treatments Start: 01/10/25 16:00 Freq: Status: Active Protocol: Document 02/21/25 13:02 PG (Rec: 02/21/25 15:37 PG Laptop) Cardio Equipment Bicycle (Upright) Duration (Minutes) 10 Resistance 7 Seat Position 9 Gym Equipment Shuttle Recovery Unilateral Squats Details cued knee out with toes on RLE Resistance 75 right, 62#>50# Left Shuttle Recovery Platform Stable Reps/Time 20 x2 each Bilateral Squats Details good form Resistance 87# (2 navy 1 teal) Shuttle Recovery Platform Stable Reps/Time 20 Shuttle Balance chains red Details bal and wt shift fwd/bck/lat, EO & EC Reps/Duration 20 taps each, balance: 30 seconds each Comments cues to engage core, only able to hold balance fwrd/bcwrd: w EC for 5 seconds w SBA, 3 seconds Therapeutic Exercises Standing Exercises quad stretch Standing Exercise Name Reviewed: two foam blocks on top of chair to increase stretch Side bilateral Comments cued for PPT and to hold stretch longer Manual Therapy Treatment Soft Tissue Mobilization L hip Body Location med and lateral to scar, distal ITB, quads Mobilization Type Rolling,Sustained Pressure Intensity/Depth Moderate Body Position Hooklying Comments Pt still has numbness down lateral hip and thigh, used moderate pressure and pt's feedback. PT-OP-R Modalities Start: 01/10/25 16:00 Freq: Status: Active Protocol: Document 02/21/25 13:02 PG (Rec: 02/21/25 15:37 PG Laptop) Hot Pack/Cold Pack Treatment L hip Location Anterior L hip: ice pack Patient Position Prone Patient Tolerance Good Comments pillows under knees and end of table elevated PT-OP-T Assessment and Plan Start: 01/10/25 16:00 Freq: Status: Active Protocol: Document 02/21/25 13:02 PG (Rec: 02/21/25 15:37 PG Laptop) Physical Therapy Assessment Impairments Impairments Activity Tolerance,Gait, Strength Goals Four Impairment decreased soft tissue mobility of scar Business Development Recruiter Goal (LTG) Normalize surgical scar mobility for improved left hip function. Three Impairment weakness left LE Short Term Goal (STG) Instruct patient in HEP for purposes of left LE strengthening 02/14/25: goal met (ongoing progression). Patient verbalizing good compliance. STG Duration Goal met [facility] Goal (LTG) Patient will be independent and compliant with HEP and demonstrate improvement in left LE strength to at least 4 +/5 to allow him to return to prior level of function. LTG Duration 04/15/25 Two Impairment Antalgic gait, step-to pattern on stairs Short Term Goal (STG) Patient will be able to ambulate on level surfaces without a limp with least restrictive device 02.14.25: goal met STG Duration goal met [facility] Goal (LTG) Patient will be able to ambulate on level and uneven surfaces without device without an increase in pain. Alternating step pattern on stairs LTG Duration 04/15/25 One Impairment Lower extremity functional scale 20% Short Term Goal (STG) Improve score to at least 40% as measure of improved activity tolerance and left LE function 02/14/25: 76% goal met STG Duration goal met Business Development Recruiter Goal (LTG) Improve score to at least 75% as measure of improved activity tolerance and left LE function 02/14/25: goal met. Goal updated to 85% LTG Duration 04/15/25 Assessment Summary Assessment Pt was in increased pn after last tx, used STM to reduce pain and tension on lateral hip and thigh. Reviewed hip flexor stretch and educated pt on utilizing his stretches the night of and day after tx or when in pain to help reduce tension on muscles. Continues working on lower extremity strengthening and balance for ADL's. Physical Therapy Plan Frequency and Duration Frequency of Treatment 2x/Week Duration of treatment (weeks) 12 Plan of Care Start Date 01/14/25 Plan of Care End Date 04/15/25 Therapeutic Interventions Therapeutic Interventions Gait Training,Home Exercise Program,Manual Therapy, Neuromuscular Re-education, Patient/Caregiver Education, Self-Care/Home Management,Soft Tissue Mobilization,Taping, Therapeutic Activities, Therapeutic Exercises Modalities Cold Pack/Ice Massage,Electric Stimulation,Hot Packs Next Visit Focus/Plan Next Note Type Treatment Note Next Visit Plan Continue to progress strengthening, review BOSU work and SLS.
--- NOTE | 2025-02-26 09:07 | PT.OTN ---
Current Diagnoses Unilateral primary osteoarthritis, left hip (02/26/25) Difficulty in walking, not elsewhere classified (02/26/25) Weakness (02/26/25) Physical Therapy Treatment Note PT-OP-A Visit Information Start: 01/10/25 16:00 Freq: Status: Active Protocol: Document 02/26/25 08:22 SP (Rec: 02/26/25 09:07 SP [id number]) Out-Patient Physical Therapy Visit Information Visit Information Visit Type Treatment Note Visit Note SPTA led tx with permission of pt and direct supervision of Larissa COTE. Visit Start Time 08:20 Visit Stop Time 09:10 Visit Number 13 Number of PRIVACY SPECIALIST Visits 2 Evaluation Information Evaluation Date 01/14/25 Precautions Precautions Left anterior FREDRICK PT-OP-B Current Condition Start: 01/10/25 16:00 Freq: Status: Active Protocol: Document 02/19/25 08:59 SAK (Rec: 02/19/25 09:45 SAK Laptop) Current Condition History of Current Condition Onset Date 01/10/25 Current Complaints s/p left FREDRICK History of Current Condition s/p left anterior FREDRICK 01/10/25. Used Oxycodone first couple days, now off and using Ibuprofen, Tylenol, baby aspirin, ice. No need for anti-nausea. Used walker at first, today first day with cane. Using FWW in the middle of the night. Numbness left lateral LE, has been swollen but wearing above knee compression socks not as swollen. Post-op dressing still in place, can come off 1 wk after surgery. Goes back to Dr. Ocampo 01/24/25. no redness or warmth. Has been doing exercises. 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 PT-OP-C Subjective Start: 01/10/25 16:00 Freq: Status: Active Protocol: Document 02/26/25 08:22 SP (Rec: 02/26/25 09:07 SP [id number]) OP-PT Subjective Patient Comments Patient Comments Pt reports doing well. Had follow up with ortho, pleased with scar typical still little still healing. Recommended decrease PT to 1x/week. PT-OP-D Balance Start: 01/10/25 16:00 Freq: Status: Active Protocol: Document 01/14/25 11:34 SAK (Rec: 01/14/25 13:36 [facility] Laptop) OP-PT Balance Assessment Sitting Balance Static Sitting Balance Ability Normal Dynamic Sitting Balance Ability Normal Standing Balance Static Standing Balance Ability Fair Dynamic Standing Balance Ability Fair Device Used SPC Standing Balance Comments decreased weight-bearing left LE Tucker Fall Scale Copyright Permission PT-OP-F Manual Assessment Start: 01/10/25 16:00 Freq: Status: Active Protocol: Document 01/14/25 11:34 [facility] (Rec: 01/14/25 13:36 [facility] Laptop) Manual Assessments Soft Tissue Assessment Soft Tissue Mobility Assessment swollen left LE, no excess redness and warmth PT-OP-G Mobility & Gait Start: 01/10/25 16:00 Freq: Status: Active Protocol: Document 01/14/25 11:34 [facility] (Rec: 01/14/25 12:24 [facility] Laptop) OP Mobility Evaluation Bed Mobility Supine to and from Sit SBA, hooks right foot under left to transition sit to supine OP Gait Assessment Gait Gait Assistance Required: Independent Distance (Feet) 50 Able to Maintain Weight Bearing Status Yes During Gait Assistive Devices Assistive Device Straight Cane Gait Deviations General Gait Pattern Antalgic,Decreased Stride Length,Decreased Feet Clearance Factors Limiting Gait Function Factors Limiting Gait Function Decreased Strength,Pain Stair Climbing Evaluation Evaluation Level of Assist On Stairs Standby Assistance Devices Stair Climbing Assistive Devices Straight Cane,Right Railing Technique/Endurance Stair Climbing Direction Ascend and Descend Stair Climbing Technique Step to Step Stair Climbing Set # Repetitions (reps) 4 Comments Stair Climbing Comments 6 stairs PT-OP-H Neuro Start: 01/10/25 16:00 Freq: Status: Active Protocol: Document 01/14/25 11:34 [facility] (Rec: 01/14/25 13:36 [facility] Laptop) Sensation Evaluation Gross Sensation Sensation Description Paresthesia PT-OP-J Posture/Palpation/Skin Start: 01/10/25 16:00 Freq: Status: Active Protocol: Document 01/14/25 11:34 [facility] (Rec: 01/14/25 13:36 [facility] Laptop) Palpation Assessment Location left hip Palpation Findings Edema,Soft Tissue Tightness Skin Assessment Incisional Assessment Incision Appearance/Comments covered by op dressing PT-OP-K Range of Motion Start: 01/10/25 16:00 Freq: Status: Active Protocol: Document 01/14/25 11:34 [facility] (Rec: 01/14/25 13:36 [facility] Laptop) Hip Goniometric Range of Motion Hip Left Active Testing Position Supine Flexion w/Knee Flexed 75 Extension 0 Abduction 40 Right Active Testing Position Supine Hip ROM Limitations Comments rotation not tested this date PT-OP-M Strength Start: 01/10/25 16:00 Freq: Status: Active Protocol: Document 01/14/25 11:34 [facility] (Rec: 01/14/25 13:36 [facility] Laptop) Hip Strength Hip Manual Muscle Testing Left Comments No MMT due to surgery. Able to flex left hip less than full anti-gravity Right Comments WFL Knee Strength Knee Manual Muscle Testing Left Comments antigravity quads Right Flexion (S2) 5 Normal Extension (L3) 5 Normal Ankle/Foot Strength Ankle and Foot Manual Muscle Testing juanita Dorsiflexion (L4) 5 Normal Plantarflexion (S1) 5 Normal PT-OP-Q Treatments Start: 01/10/25 16:00 Freq: Status: Active Protocol: Document 02/26/25 08:22 SP (Rec: 02/26/25 09:07 SP [id number]) Gym Equipment Shuttle Recovery Unilateral Squats Details cued knee out with toes on RLE Resistance 75 right (3 navy), 62# ( 2 navy)Left Shuttle Recovery Platform Stable Reps/Time 15 x2 each Bilateral Squats Details good form Resistance 87#> 100# (4 navy bands) Shuttle Recovery Platform Stable Reps/Time 2x15 Therapeutic Exercises Standing Exercises resisted walk Standing Exercise Name lateral, forward, backward Side bilateral Resistance L3 TB at shins Reps/Minutes 20 ft x2 laps each direction Comments good form, muscle tiring reported Manual Therapy Treatment Consent Patient gave verbal consent for manual Yes treatment Soft Tissue Mobilization L hip Body Location distal-distal ITB, RF, VL Mobilization Type Instrument Assisted,Myofascial Release Intensity/Depth Superficial Body Position Hooklying Comments MF cupping this tx in Kristopher stretch position- suction pressure tolerance- improved MF mobility. Neuro Re-Education Treatment Balance Activities SLS Details 1. BOSU 2. SLS balloon volley Surface BOSU Equipment 1. on dome flat side on floor, PRN rail 2. back near rail Reps/Duration 4x30 sec each Comments 1. cued ankle flat- 15 and 20 sec L, 6-10 sec R 2. cued COG over TARIK elongated posture step-ups Details B: step ups fwd and lateral Surface BOSU Equipment PRN rail Reps/Duration 10x2 each direction Comments cued hip hinge for posterior chain fac vs knee irritation- improved. PT-OP-R Modalities Start: 01/10/25 16:00 Freq: Status: Active Protocol: Document 02/26/25 08:22 SP (Rec: 02/26/25 09:07 SP [id number]) Hot Pack/Cold Pack Treatment L hip Location Anterior L hip: ice pack Patient Position Hooklying Patient Tolerance Good Comments pillows under knees and end of table elevated PT-OP-T Assessment and Plan Start: 01/10/25 16:00 Freq: Status: Active Protocol: Document 02/26/25 08:22 SP (Rec: 02/26/25 09:07 SP [id number]) Physical Therapy Assessment Goals Four Impairment decreased soft tissue mobility of scar Clinical Support Tech Goal (LTG) Normalize surgical scar mobility for improved left hip function. Three Impairment weakness left LE Short Term Goal (STG) Instruct patient in HEP for purposes of left LE strengthening 02/14/25: goal met (ongoing progression). Patient verbalizing good compliance. STG Duration Goal met Clinical Support Tech Goal (LTG) Patient will be independent and compliant with HEP and demonstrate improvement in left LE strength to at least 4 +/5 to allow him to return to prior level of function. LTG Duration 04/15/25 Two Impairment Antalgic gait, step-to pattern on stairs Short Term Goal (STG) Patient will be able to ambulate on level surfaces without a limp with least restrictive device 02.14.25: goal met STG Duration goal met Clinical Support Tech Goal (LTG) Patient will be able to ambulate on level and uneven surfaces without device without an increase in pain. Alternating step pattern on stairs LTG Duration 04/15/25 One Impairment Lower extremity functional scale 20% Short Term Goal (STG) Improve score to at least 40% as measure of improved activity tolerance and left LE function 02/14/25: 76% goal met STG Duration goal met Clinical Support Tech Goal (LTG) Improve score to at least 75% as measure of improved activity tolerance and left LE function 02/14/25: goal met. Goal updated to 85% LTG Duration 04/15/25 Assessment Summary Assessment Pt good tiring effort during ther ex and progression SL uneven and level surfaces. Cues for midline trunk alignment for stability. Improved MF mobility end tx with cupping, noted hyperemia over ITB. Pt requests CP for recovery end tx. Pt due in 2 weeks for PN, reduction appts to 1x/wk. Physical Therapy Plan Frequency and Duration Frequency of Treatment 2x/Week Duration of treatment (weeks) 12 Plan of Care Start Date 01/14/25 Plan of Care End Date 04/15/25 Therapeutic Interventions Therapeutic Interventions Gait Training,Home Exercise Program,Manual Therapy, Neuromuscular Re-education, Patient/Caregiver Education, Self-Care/Home Management,Soft Tissue Mobilization,Taping, Therapeutic Activities, Therapeutic Exercises Modalities Cold Pack/Ice Massage,Electric Stimulation,Hot Packs Next Visit Focus/Plan Next Note Type Treatment Note Next Visit Plan Due for 30 day PN 03/17 with a PT, reduction PT 1x/wk through March. POC: Continue to progress strengthening, review BOSU work and SLS.
--- NOTE | 2025-02-28 12:33 | PT.OTN ---
Current Diagnoses Unilateral primary osteoarthritis, left hip (02/28/25) Difficulty in walking, not elsewhere classified (02/28/25) Weakness (02/28/25) Physical Therapy Treatment Note PT-OP-A Visit Information Start: 01/10/25 16:00 Freq: Status: Active Protocol: Document 02/28/25 09:50 LFG (Rec: 02/28/25 11:04 LFG Laptop) Out-Patient Physical Therapy Visit Information Visit Information Visit Type Treatment Note Visit Start Time 09:47 Visit Stop Time 10:42 Visit Number 14 Number of RETAIL DEPARTMENT RESET Visits 0 Evaluation Information Evaluation Date 01/14/25 Precautions Precautions Left anterior FREDRICK PT-OP-B Current Condition Start: 01/10/25 16:00 Freq: Status: Active Protocol: Document 02/28/25 09:50 LFG (Rec: 02/28/25 11:04 LFG Laptop) Current Condition History of Current Condition Onset Date 01/10/25 Current Complaints s/p left FREDRICK History of Current Condition s/p left anterior FREDRICK 01/10/25. Used Oxycodone first couple days, now off and using Ibuprofen, Tylenol, baby aspirin, ice. No need for anti-nausea. Used walker at first, today first day with cane. Using FWW in the middle of the night. Numbness left lateral LE, has been swollen but wearing above knee compression socks not as swollen. Post-op dressing still in place, can come off 1 wk after surgery. Goes back to Dr. Ocampo 01/24/25. no redness or warmth. Has been doing exercises. 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 Current Functional Impairments (Reported) Functional Limitations- ADL's bench in shower Functional Limitations- Mobility/Gait cane Functional Limitations- Work/School retired Functional Limitations- Recreation/ unable to go for walks, go Hobbies boating. PT-OP-C Subjective Start: 01/10/25 16:00 Freq: Status: Active Protocol: Document 02/28/25 09:50 LFG (Rec: 02/28/25 11:04 LFG Laptop) OP-PT Subjective Patient Comments Patient Comments Pt reports being sore from last session, very achey pressure is placed on L LE, hip and quad soreness improving since yesterday, but is aggravated in weight bearing (walking), no issue without pressure. Sometimes soreness increases to levels of what it did one month ago but doesn't last as long. Pt reports of unstable fluctuating bouts of pain while shopping at [employer] where pain is nonexistent while shopping for few ailes and then is unbearable to the point where a cane may be needed in the next ailes. Pt comments the STM at end of tx took the last out of him for the session. PT-OP-D Balance Start: 01/10/25 16:00 Freq: Status: Active Protocol: Document 01/14/25 11:34 SAK (Rec: 01/14/25 13:36 [facility] Laptop) OP-PT Balance Assessment Sitting Balance Static Sitting Balance Ability Normal Dynamic Sitting Balance Ability Normal Standing Balance Static Standing Balance Ability Fair Dynamic Standing Balance Ability Fair Device Used SPC Standing Balance Comments decreased weight-bearing left LE Tucker Fall Scale Copyright Permission PT-OP-F Manual Assessment Start: 01/10/25 16:00 Freq: Status: Active Protocol: Document 01/14/25 11:34 SAK (Rec: 01/14/25 13:36 [facility] Laptop) Manual Assessments Soft Tissue Assessment Soft Tissue Mobility Assessment swollen left LE, no excess redness and warmth PT-OP-G Mobility & Gait Start: 01/10/25 16:00 Freq: Status: Active Protocol: Document 01/14/25 11:34 SAK (Rec: 01/14/25 12:24 [facility] Laptop) OP Mobility Evaluation Bed Mobility Supine to and from Sit SBA, hooks right foot under left to transition sit to supine OP Gait Assessment Gait Gait Assistance Required: Independent Distance (Feet) 50 Able to Maintain Weight Bearing Status Yes During Gait Assistive Devices Assistive Device Straight Cane Gait Deviations General Gait Pattern Antalgic,Decreased Stride Length,Decreased Feet Clearance Factors Limiting Gait Function Factors Limiting Gait Function Decreased Strength,Pain Stair Climbing Evaluation Evaluation Level of Assist On Stairs Standby Assistance Devices Stair Climbing Assistive Devices Straight Cane,Right Railing Technique/Endurance Stair Climbing Direction Ascend and Descend Stair Climbing Technique Step to Step Stair Climbing Set # Repetitions (reps) 4 Comments Stair Climbing Comments 6 stairs PT-OP-H Neuro Start: 01/10/25 16:00 Freq: Status: Active Protocol: Document 01/14/25 11:34 SAK (Rec: 01/14/25 13:36 [facility] Laptop) Sensation Evaluation Gross Sensation Sensation Description Paresthesia PT-OP-J Posture/Palpation/Skin Start: 01/10/25 16:00 Freq: Status: Active Protocol: Document 01/14/25 11:34 SAK (Rec: 01/14/25 13:36 [facility] Laptop) Palpation Assessment Location left hip Palpation Findings Edema,Soft Tissue Tightness Skin Assessment Incisional Assessment Incision Appearance/Comments covered by op dressing PT-OP-K Range of Motion Start: 01/10/25 16:00 Freq: Status: Active Protocol: Document 01/14/25 11:34 SAK (Rec: 01/14/25 13:36 [facility] Laptop) Hip Goniometric Range of Motion Hip Left Active Testing Position Supine Flexion w/Knee Flexed 75 Extension 0 Abduction 40 Right Active Testing Position Supine Hip ROM Limitations Comments rotation not tested this date PT-OP-M Strength Start: 01/10/25 16:00 Freq: Status: Active Protocol: Document 01/14/25 11:34 SAK (Rec: 01/14/25 13:36 [facility] Laptop) Hip Strength Hip Manual Muscle Testing Left Comments No MMT due to surgery. Able to flex left hip less than full anti-gravity Right Comments WFL Knee Strength Knee Manual Muscle Testing Left Comments antigravity quads Right Flexion (S2) 5 Normal Extension (L3) 5 Normal Ankle/Foot Strength Ankle and Foot Manual Muscle Testing juanita Dorsiflexion (L4) 5 Normal Plantarflexion (S1) 5 Normal PT-OP-Q Treatments Start: 01/10/25 16:00 Freq: Status: Active Protocol: Document 02/28/25 09:50 LFG (Rec: 02/28/25 11:04 LFG Laptop) Cardio Equipment Bicycle (Upright) Duration (Minutes) 10 Resistance 7 Seat Position 9 Gym Equipment Shuttle Recovery Unilateral Sq q/ board Details Good form Resistance 62# Shuttle Recovery Platform Unstable Reps/Time 1x15 Bilateral Sq w/ board Details VC to push more with LLE Resistance 62#, 87# Shuttle Recovery Platform Unstable Reps/Time 2x15 Unilateral Squats Details cued knee out with toes on RLE , good form on LLE Resistance 75 right (3 navy), 62# ( 2 navy)Left Shuttle Recovery Platform Stable Reps/Time 15 x2 each Bilateral Squats Details good form, VC to slow down Resistance 87#(3 navy bands, 1 davis) Shuttle Recovery Platform Stable Reps/Time 2x15 Therapeutic Exercises Standing Exercises gastroc and soleus stretch Equipment Used KENIA Reps/Minutes 30x2 Comments stretch then active rock fwd and back x 10 Manual Therapy Treatment Soft Tissue Mobilization L hip Body Location proximal quad, med lat to surgical scar Mobilization Type Instrument Assisted,Strumming Intensity/Depth Moderate Body Position Hooklying Comments MF cupping this tx in Kristopher stretch position- suction pressure tolerance- improved MF mobility. PT-OP-R Modalities Start: 01/10/25 16:00 Freq: Status: Active Protocol: Document 02/28/25 09:50 LFG (Rec: 02/28/25 11:04 LFG Laptop) Hot Pack/Cold Pack Treatment L hip Location Anterior L hip: ice pack Patient Position Supine Patient Tolerance Good Comments bolster under knees, 12 min per pt request PT-OP-T Assessment and Plan Start: 01/10/25 16:00 Freq: Status: Active Protocol: Document 02/28/25 09:50 LFG (Rec: 02/28/25 11:04 LFG Laptop) Physical Therapy Assessment Rehab Potential Rehabilitation Potential Excellent Impairments Impairments Activity Tolerance,Gait, Strength Goals Four Impairment decreased soft tissue mobility of scar Prison Goal (LTG) Normalize surgical scar mobility for improved left hip function. Three Impairment weakness left LE Short Term Goal (STG) Instruct patient in HEP for purposes of left LE strengthening 02/14/25: goal met (ongoing progression). Patient verbalizing good compliance. STG Duration Goal met Supervisor Fusing Room Goal (LTG) Patient will be independent and compliant with HEP and demonstrate improvement in left LE strength to at least 4 +/5 to allow him to return to prior level of function. LTG Duration 04/15/25 Two Impairment Antalgic gait, step-to pattern on stairs Short Term Goal (STG) Patient will be able to ambulate on level surfaces without a limp with least restrictive device 02.14.25: goal met STG Duration goal met Supervisor Fusing Room Goal (LTG) Patient will be able to ambulate on level and uneven surfaces without device without an increase in pain. Alternating step pattern on stairs LTG Duration 04/15/25 One Impairment Lower extremity functional scale 20% Short Term Goal (STG) Improve score to at least 40% as measure of improved activity tolerance and left LE function 02/14/25: 76% goal met STG Duration goal met Supervisor Fusing Room Goal (LTG) Improve score to at least 75% as measure of improved activity tolerance and left LE function 02/14/25: goal met. Goal updated to 85% LTG Duration 04/15/25 Assessment Summary Assessment Pt performed todays exercises well with good form and with VC to keep knees out both bilateral/unilateral leg press and slowing down the eccentric phase. Due to immature healing of the proximal incision, STM performed at end of session was localized to medial/ lateral and inferior areas surrounding distal incision. Physical Therapy Plan Frequency and Duration Frequency of Treatment 2x/Week Duration of treatment (weeks) 12 Plan of Care Start Date 01/14/25 Plan of Care End Date 04/15/25 Therapeutic Interventions Therapeutic Interventions Gait Training,Home Exercise Program,Manual Therapy, Neuromuscular Re-education, Patient/Caregiver Education, Self-Care/Home Management,Soft Tissue Mobilization,Taping, Therapeutic Activities, Therapeutic Exercises Modalities Cold Pack/Ice Massage,Electric Stimulation,Hot Packs Next Visit Focus/Plan Next Note Type Treatment Note Next Visit Plan Due for 30 day PN 03/17 with a PT, reduction PT 1x/wk through March. POC: Continue to progress strengthening, review BOSU work and SLS activities as tolerated.
--- NOTE | 2025-02-28 15:01 | PT.OTN ---
Addendum entered and electronically signed by Andree Gonzalez, PT 02/28/25 15:01: student PT Warren Swartz participated in PT session with PT direct supervision and direction Original Note: Current Diagnoses Unilateral primary osteoarthritis, left hip (02/28/25) Difficulty in walking, not elsewhere classified (02/28/25) Weakness (02/28/25) Physical Therapy Treatment Note PT-OP-A Visit Information Start: 01/10/25 16:00 Freq: Status: Active Protocol: Document 02/28/25 09:50 [facility] (Rec: 02/28/25 11:04 [facility] Laptop) Out-Patient Physical Therapy Visit Information Visit Information Visit Type Treatment Note Visit Start Time 09:47 Visit Stop Time 10:42 Visit Number 14 Number of BUSINESS PROJECT ANALYST Visits 0 Evaluation Information Evaluation Date 01/14/25 Precautions Precautions Left anterior FREDRICK PT-OP-B Current Condition Start: 01/10/25 16:00 Freq: Status: Active Protocol: Document 02/28/25 09:50 L[facility] (Rec: 02/28/25 11:04 L[facility] Laptop) Current Condition History of Current Condition Onset Date 01/10/25 Current Complaints s/p left FREDRICK History of Current Condition s/p left anterior FREDRICK 01/10/25. Used Oxycodone first couple days, now off and using Ibuprofen, Tylenol, baby aspirin, ice. No need for anti-nausea. Used walker at first, today first day with cane. Using FWW in the middle of the night. Numbness left lateral LE, has been swollen but wearing above knee compression socks not as swollen. Post-op dressing still in place, can come off 1 wk after surgery. Goes back to Dr. Ocampo 01/24/25. no redness or warmth. Has been doing exercises. 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 Current Functional Impairments (Reported) Functional Limitations- ADL's bench in shower Functional Limitations- Mobility/Gait cane Functional Limitations- Work/School retired Functional Limitations- Recreation/ unable to go for walks, go Hobbies boating. PT-OP-C Subjective Start: 01/10/25 16:00 Freq: Status: Active Protocol: Document 02/28/25 09:50 LFG (Rec: 02/28/25 11:04 [facility] Laptop) OP-PT Subjective Patient Comments Patient Comments Pt reports being sore from last session, very achey pressure is placed on L LE, hip and quad soreness improving since yesterday, but is aggravated in weight bearing (walking), no issue without pressure. Sometimes soreness increases to levels of what it did one month ago but doesn't last as long. Pt reports of unstable fluctuating bouts of pain while shopping at [employer] where pain is nonexistent while shopping for few ailes and then is unbearable to the point where a cane may be needed in the next ailes. Pt comments the STM at end of tx took the last out of him for the session. PT-OP-D Balance Start: 01/10/25 16:00 Freq: Status: Active Protocol: Document 01/14/25 11:34 [facility] (Rec: 01/14/25 13:36 [facility] Laptop) OP-PT Balance Assessment Sitting Balance Static Sitting Balance Ability Normal Dynamic Sitting Balance Ability Normal Standing Balance Static Standing Balance Ability Fair Dynamic Standing Balance Ability Fair Device Used SPC Standing Balance Comments decreased weight-bearing left LE Tucker Fall Scale Copyright Permission PT-OP-F Manual Assessment Start: 01/10/25 16:00 Freq: Status: Active Protocol: Document 01/14/25 11:34 [facility] (Rec: 01/14/25 13:36 [facility] Laptop) Manual Assessments Soft Tissue Assessment Soft Tissue Mobility Assessment swollen left LE, no excess redness and warmth PT-OP-G Mobility & Gait Start: 01/10/25 16:00 Freq: Status: Active Protocol: Document 01/14/25 11:34 [facility] (Rec: 01/14/25 12:24 [facility] Laptop) OP Mobility Evaluation Bed Mobility Supine to and from Sit SBA, hooks right foot under left to transition sit to supine OP Gait Assessment Gait Gait Assistance Required: Independent Distance (Feet) 50 Able to Maintain Weight Bearing Status Yes During Gait Assistive Devices Assistive Device Straight Cane Gait Deviations General Gait Pattern Antalgic,Decreased Stride Length,Decreased Feet Clearance Factors Limiting Gait Function Factors Limiting Gait Function Decreased Strength,Pain Stair Climbing Evaluation Evaluation Level of Assist On Stairs Standby Assistance Devices Stair Climbing Assistive Devices Straight Cane,Right Railing Technique/Endurance Stair Climbing Direction Ascend and Descend Stair Climbing Technique Step to Step Stair Climbing Set # Repetitions (reps) 4 Comments Stair Climbing Comments 6 stairs PT-OP-H Neuro Start: 01/10/25 16:00 Freq: Status: Active Protocol: Document 01/14/25 11:34 [facility] (Rec: 01/14/25 13:36 [facility] Laptop) Sensation Evaluation Gross Sensation Sensation Description Paresthesia PT-OP-J Posture/Palpation/Skin Start: 01/10/25 16:00 Freq: Status: Active Protocol: Document 01/14/25 11:34 [facility] (Rec: 01/14/25 13:36 [facility] Laptop) Palpation Assessment Location left hip Palpation Findings Edema,Soft Tissue Tightness Skin Assessment Incisional Assessment Incision Appearance/Comments covered by op dressing PT-OP-K Range of Motion Start: 01/10/25 16:00 Freq: Status: Active Protocol: Document 01/14/25 11:34 [facility] (Rec: 01/14/25 13:36 [facility] Laptop) Hip Goniometric Range of Motion Hip Left Active Testing Position Supine Flexion w/Knee Flexed 75 Extension 0 Abduction 40 Right Active Testing Position Supine Hip ROM Limitations Comments rotation not tested this date PT-OP-M Strength Start: 01/10/25 16:00 Freq: Status: Active Protocol: Document 01/14/25 11:34 [facility] (Rec: 01/14/25 13:36 [facility] Laptop) Hip Strength Hip Manual Muscle Testing Left Comments No MMT due to surgery. Able to flex left hip less than full anti-gravity Right Comments WFL Knee Strength Knee Manual Muscle Testing Left Comments antigravity quads Right Flexion (S2) 5 Normal Extension (L3) 5 Normal Ankle/Foot Strength Ankle and Foot Manual Muscle Testing juanita Dorsiflexion (L4) 5 Normal Plantarflexion (S1) 5 Normal PT-OP-Q Treatments Start: 01/10/25 16:00 Freq: Status: Active Protocol: Document 02/28/25 09:50 [facility] (Rec: 02/28/25 11:04 [facility] Laptop) Cardio Equipment Bicycle (Upright) Duration (Minutes) 10 Resistance 7 Seat Position 9 Gym Equipment Shuttle Recovery Unilateral Sq q/ board Details Good form Resistance 62# Shuttle Recovery Platform Unstable Reps/Time 1x15 Bilateral Sq w/ board Details VC to push more with LLE Resistance 62#, 87# Shuttle Recovery Platform Unstable Reps/Time 2x15 Unilateral Squats Details cued knee out with toes on RLE , good form on LLE Resistance 75 right (3 navy), 62# ( 2 navy)Left Shuttle Recovery Platform Stable Reps/Time 15 x2 each Bilateral Squats Details good form, VC to slow down Resistance 87#(3 navy bands, 1 davis) Shuttle Recovery Platform Stable Reps/Time 2x15 Therapeutic Exercises Standing Exercises gastroc and soleus stretch Equipment Used KENIA Reps/Minutes 30x2 Comments stretch then active rock fwd and back x 10 Manual Therapy Treatment Soft Tissue Mobilization L hip Body Location proximal quad, med lat to surgical scar Mobilization Type Instrument Assisted,Strumming Intensity/Depth Moderate Body Position Hooklying Comments MF cupping this tx in Kristopher stretch position- suction pressure tolerance- improved MF mobility. PT-OP-R Modalities Start: 01/10/25 16:00 Freq: Status: Active Protocol: Document 02/28/25 09:50 [facility] (Rec: 02/28/25 11:04 [facility] Laptop) Hot Pack/Cold Pack Treatment L hip Location Anterior L hip: ice pack Patient Position Supine Patient Tolerance Good Comments bolster under knees, 12 min per pt request PT-OP-T Assessment and Plan Start: 01/10/25 16:00 Freq: Status: Active Protocol: Document 02/28/25 09:50 [facility] (Rec: 02/28/25 11:04 [facility] Laptop) Physical Therapy Assessment Rehab Potential Rehabilitation Potential Excellent Impairments Impairments Activity Tolerance,Gait, Strength Goals Four Impairment decreased soft tissue mobility of scar Halfway Goal (LTG) Normalize surgical scar mobility for improved left hip function. Three Impairment weakness left LE Short Term Goal (STG) Instruct patient in HEP for purposes of left LE strengthening 02/14/25: goal met (ongoing progression). Patient verbalizing good compliance. STG Duration Goal met Halfway Goal (LTG) Patient will be independent and compliant with HEP and demonstrate improvement in left LE strength to at least 4 +/5 to allow him to return to prior level of function. LTG Duration 04/15/25 Two Impairment Antalgic gait, step-to pattern on stairs Short Term Goal (STG) Patient will be able to ambulate on level surfaces without a limp with least restrictive device 02.14.25: goal met STG Duration goal met Business System Manager Goal (LTG) Patient will be able to ambulate on level and uneven surfaces without device without an increase in pain. Alternating step pattern on stairs LTG Duration 04/15/25 One Impairment Lower extremity functional scale 20% Short Term Goal (STG) Improve score to at least 40% as measure of improved activity tolerance and left LE function 02/14/25: 76% goal met STG Duration goal met Business System Manager Goal (LTG) Improve score to at least 75% as measure of improved activity tolerance and left LE function 02/14/25: goal met. Goal updated to 85% LTG Duration 04/15/25 Assessment Summary Assessment Pt performed todays exercises well with good form and with VC to keep knees out both bilateral/unilateral leg press and slowing down the eccentric phase. Due to immature healing of the proximal incision, STM performed at end of session was localized to medial/ lateral and inferior areas surrounding distal incision. Physical Therapy Plan Frequency and Duration Frequency of Treatment 2x/Week Duration of treatment (weeks) 12 Plan of Care Start Date 01/14/25 Plan of Care End Date 04/15/25 Therapeutic Interventions Therapeutic Interventions Gait Training,Home Exercise Program,Manual Therapy, Neuromuscular Re-education, Patient/Caregiver Education, Self-Care/Home Management,Soft Tissue Mobilization,Taping, Therapeutic Activities, Therapeutic Exercises Modalities Cold Pack/Ice Massage,Electric Stimulation,Hot Packs Next Visit Focus/Plan Next Note Type Treatment Note Next Visit Plan Due for 30 day PN 03/17 with a PT, reduction PT 1x/wk through March. POC: Continue to progress strengthening, review BOSU work and SLS activities as tolerated.
--- NOTE | 2025-03-05 10:41 | PT.OTN ---
Current Diagnoses Unilateral primary osteoarthritis, left hip (03/05/25) Difficulty in walking, not elsewhere classified (03/05/25) Weakness (03/05/25) Physical Therapy Treatment Note PT-OP-A Visit Information Start: 01/10/25 16:00 Freq: Status: Active Protocol: Document 03/05/25 09:49 [facility] (Rec: 03/05/25 10:44 [facility] Laptop) Out-Patient Physical Therapy Visit Information Visit Information Visit Type Treatment Note Visit Note Willow VILLALBA led tx w permission of pt and direct supervision of Larissa COTE. Visit Start Time 09:49 Visit Stop Time 10:41 Visit Number 15 Number of EMERGING SOLUTIONS EXECUTIVE Visits 1 PT-OP-B Current Condition Start: 01/10/25 16:00 Freq: Status: Active Protocol: Document 02/28/25 09:50 [facility] (Rec: 02/28/25 11:04 [facility] Laptop) Current Condition History of Current Condition Onset Date 01/10/25 Current Complaints s/p left FREDRICK History of Current Condition s/p left anterior FREDRICK 01/10/25. Used Oxycodone first couple days, now off and using Ibuprofen, Tylenol, baby aspirin, ice. No need for anti-nausea. Used walker at first, today first day with cane. Using FWW in the middle of the night. Numbness left lateral LE, has been swollen but wearing above knee compression socks not as swollen. Post-op dressing still in place, can come off 1 wk after surgery. Goes back to Dr. Ocampo 01/24/25. no redness or warmth. Has been doing exercises. 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 Current Functional Impairments (Reported) Functional Limitations- ADL's bench in shower Functional Limitations- Mobility/Gait cane Functional Limitations- Work/School retired Functional Limitations- Recreation/ unable to go for walks, go Hobbies boating. PT-OP-C Subjective Start: 01/10/25 16:00 Freq: Status: Active Protocol: Document 03/05/25 09:49 [facility] (Rec: 03/05/25 10:44 [facility] Laptop) OP-PT Subjective Patient Comments Patient Comments Pt reports he's had the least amount of pain after tx ever before. Only feels muscular pain. Pt reports he's been cleared of all restrictions post surgery. PT-OP-D Balance Start: 01/10/25 16:00 Freq: Status: Active Protocol: Document 01/14/25 11:34 [facility] (Rec: 01/14/25 13:36 [facility] Laptop) OP-PT Balance Assessment Sitting Balance Static Sitting Balance Ability Normal Dynamic Sitting Balance Ability Normal Standing Balance Static Standing Balance Ability Fair Dynamic Standing Balance Ability Fair Device Used SPC Standing Balance Comments decreased weight-bearing left LE Tucker Fall Scale Copyright Permission PT-OP-F Manual Assessment Start: 01/10/25 16:00 Freq: Status: Active Protocol: Document 01/14/25 11:34 [facility] (Rec: 01/14/25 13:36 [facility] Laptop) Manual Assessments Soft Tissue Assessment Soft Tissue Mobility Assessment swollen left LE, no excess redness and warmth PT-OP-G Mobility & Gait Start: 01/10/25 16:00 Freq: Status: Active Protocol: Document 01/14/25 11:34 [facility] (Rec: 01/14/25 12:24 [facility] Laptop) OP Mobility Evaluation Bed Mobility Supine to and from Sit SBA, hooks right foot under left to transition sit to supine OP Gait Assessment Gait Gait Assistance Required: Independent Distance (Feet) 50 Able to Maintain Weight Bearing Status Yes During Gait Assistive Devices Assistive Device Straight Cane Gait Deviations General Gait Pattern Antalgic,Decreased Stride Length,Decreased Feet Clearance Factors Limiting Gait Function Factors Limiting Gait Function Decreased Strength,Pain Stair Climbing Evaluation Evaluation Level of Assist On Stairs Standby Assistance Devices Stair Climbing Assistive Devices Straight Cane,Right Railing Technique/Endurance Stair Climbing Direction Ascend and Descend Stair Climbing Technique Step to Step Stair Climbing Set # Repetitions (reps) 4 Comments Stair Climbing Comments 6 stairs PT-OP-H Neuro Start: 01/10/25 16:00 Freq: Status: Active Protocol: Document 01/14/25 11:34 [facility] (Rec: 01/14/25 13:36 [facility] Laptop) Sensation Evaluation Gross Sensation Sensation Description Paresthesia PT-OP-J Posture/Palpation/Skin Start: 01/10/25 16:00 Freq: Status: Active Protocol: Document 01/14/25 11:34 [facility] (Rec: 01/14/25 13:36 [facility] Laptop) Palpation Assessment Location left hip Palpation Findings Edema,Soft Tissue Tightness Skin Assessment Incisional Assessment Incision Appearance/Comments covered by op dressing PT-OP-K Range of Motion Start: 01/10/25 16:00 Freq: Status: Active Protocol: Document 01/14/25 11:34 [facility] (Rec: 01/14/25 13:36 [facility] Laptop) Hip Goniometric Range of Motion Hip Left Active Testing Position Supine Flexion w/Knee Flexed 75 Extension 0 Abduction 40 Right Active Testing Position Supine Hip ROM Limitations Comments rotation not tested this date PT-OP-M Strength Start: 01/10/25 16:00 Freq: Status: Active Protocol: Document 01/14/25 11:34 [facility] (Rec: 01/14/25 13:36 [facility] Laptop) Hip Strength Hip Manual Muscle Testing Left Comments No MMT due to surgery. Able to flex left hip less than full anti-gravity Right Comments WFL Knee Strength Knee Manual Muscle Testing Left Comments antigravity quads Right Flexion (S2) 5 Normal Extension (L3) 5 Normal Ankle/Foot Strength Ankle and Foot Manual Muscle Testing juanita Dorsiflexion (L4) 5 Normal Plantarflexion (S1) 5 Normal PT-OP-Q Treatments Start: 01/10/25 16:00 Freq: Status: Active Protocol: Document 03/05/25 09:49 [facility] (Rec: 03/05/25 10:44 [facility] Laptop) Cardio Equipment Bicycle (Upright) Duration (Minutes) 10 Resistance 7 Seat Position 9 Gym Equipment Shuttle Recovery Unilateral Sq q/ board Details Good form Resistance 62# Shuttle Recovery Platform Unstable Reps/Time 2x15 Bilateral Sq w/ board Details VC to push more with LLE Resistance 87# > 100# (1 teal) Shuttle Recovery Platform Unstable Reps/Time 2x15 Therapeutic Exercises Supine Exercises Stretching Supine Exercise Name ITB/lateral hip stretch: 1. Reviewed strap 2. figure 4 Side left Equipment Used 1. blue strap 2. towel to pull thigh twrd Reps/Minutes 30 sec hold Comments cues to rest head (c/s neutral ), within pnfree range Neuro Re-Education Treatment Balance Activities Modified SLS Details L on bosu ball, R toe touch on step Comments Pt used 27.5% pressure through R toe on step. Left: 10-14 sec - w/o UE support on //bars SLS Details 1. BOSU Surface BOSU Equipment 1. on dome flat side on floor Comments 1. cued engaged core, squeeze shldr blades L: 4-5 sec, R: 10-14 sec - w/o UE support on //bars step-ups Details B: step ups fwd and lateral Surface BOSU Equipment few finger taps on railing for stability Reps/Duration 10x2 each direction Self-Care/Home Management Treatment Education Patient Education Pain Management Other Education Educated pt on self STM to L ITB to reduce tightness. Pt states he has a rolling pin but tends not to use it and has a hard time applying pressure himself. Educated pt on having another person, such as his apply pressure or just incorporating rolling ITB out into his recovery routine to improve blood flow, applying sustained pressure on any sore areas with the pressure he's comfortable with. PT-OP-R Modalities Start: 01/10/25 16:00 Freq: Status: Active Protocol: Document 03/05/25 09:49 [facility] (Rec: 03/05/25 10:44 [facility] Laptop) Hot Pack/Cold Pack Treatment L hip Location Anterior L hip: ice pack Patient Position Supine Patient Tolerance Good Comments bolster under knees, 12 min per pt request PT-OP-T Assessment and Plan Start: 01/10/25 16:00 Freq: Status: Active Protocol: Document 03/05/25 09:49 [facility] (Rec: 03/05/25 10:44 [facility] Laptop) Physical Therapy Assessment Rehab Potential Rehabilitation Potential Excellent Impairments Impairments Activity Tolerance,Gait, Strength Goals Four Impairment decreased soft tissue mobility of scar Intermediate Goal (LTG) Normalize surgical scar mobility for improved left hip function. Three Impairment weakness left LE Short Term Goal (STG) Instruct patient in HEP for purposes of left LE strengthening 02/14/25: goal met (ongoing progression). Patient verbalizing good compliance. STG Duration Goal met Intermediate Goal (LTG) Patient will be independent and compliant with HEP and demonstrate improvement in left LE strength to at least 4 +/5 to allow him to return to prior level of function. LTG Duration 04/15/25 Two Impairment Antalgic gait, step-to pattern on stairs Short Term Goal (STG) Patient will be able to ambulate on level surfaces without a limp with least restrictive device 02.14.25: goal met STG Duration goal met Intermediate Goal (LTG) Patient will be able to ambulate on level and uneven surfaces without device without an increase in pain. Alternating step pattern on stairs LTG Duration 04/15/25 One Impairment Lower extremity functional scale 20% Short Term Goal (STG) Improve score to at least 40% as measure of improved activity tolerance and left LE function 02/14/25: 76% goal met STG Duration goal met Intermediate Goal (LTG) Improve score to at least 75% as measure of improved activity tolerance and left LE function 02/14/25: goal met. Goal updated to 85% LTG Duration 04/15/25 Assessment Summary Assessment Pt continued to perform exercises with great form, increased weight of bilateral squats on shuttle leg press from 87# > 100# with unstable platform. Pt also performed 2 sets of 15 single leg squats on unstable platform. Good for simulating uneven terrain. Continued working on bosu ball SLS. Initiated modified SLS, LLE on Bosu w RLE on step (pt reports about 27.5% pressure), pt able to balance on LLE with no UE support in modified position almost 3x as long versus regular SLS, still a good challenge. Physical Therapy Plan Frequency and Duration Frequency of Treatment 2x/Week Duration of treatment (weeks) 12 Plan of Care Start Date 01/14/25 Plan of Care End Date 04/15/25 Therapeutic Interventions Therapeutic Interventions Gait Training,Home Exercise Program,Manual Therapy, Neuromuscular Re-education, Patient/Caregiver Education, Self-Care/Home Management,Soft Tissue Mobilization,Taping, Therapeutic Activities, Therapeutic Exercises Modalities Cold Pack/Ice Massage,Electric Stimulation,Hot Packs Next Visit Focus/Plan Next Note Type Treatment Note Next Visit Plan Next: mini lunges, walking over uneven terrain (obstacle course) Due for 30 day PN 04/16 with a PT, reduction PT 1x/wk through March. POC: Continue to progress strengthening, review BOSU work and SLS activities as tolerated.
--- NOTE | 2025-03-13 12:20 | PT.OTN ---
Current Diagnoses Unilateral primary osteoarthritis, left hip (03/13/25) Difficulty in walking, not elsewhere classified (03/13/25) Weakness (03/13/25) Physical Therapy Treatment Note PT-OP-A Visit Information Start: 01/10/25 16:00 Freq: Status: Active Protocol: Document 03/13/25 11:34 SP (Rec: 03/13/25 12:35 SP [id number]) Out-Patient Physical Therapy Visit Information Visit Information Visit Type Treatment Note Visit Start Time 11:34 Visit Stop Time 12:20 Visit Number 16 (04/18 with PN) Number of BELL TIER Visits 2 Evaluation Information Evaluation Date 01/14/25 Precautions Precautions Left anterior FREDRICK PT-OP-B Current Condition Start: 01/10/25 16:00 Freq: Status: Active Protocol: Document 02/28/25 09:50 LFG (Rec: 02/28/25 11:04 LFG Laptop) Current Condition History of Current Condition Onset Date 01/10/25 Current Complaints s/p left FREDRICK History of Current s/p left anterior FREDRICK 01/10/25. Used Oxycodone first Condition couple days, now off and using Ibuprofen, Tylenol, baby aspirin, ice. No need for anti-nausea. Used walker at first, today first day with cane. Using FWW in the middle of the night. Numbness left lateral LE, has been swollen but wearing above knee compression socks not as swollen. Post-op dressing still in place, can come off 1 wk after surgery. Goes back to Dr. Ocampo 01/24/25. no redness or warmth. Has been doing exercises. Treatment Goals Patient/Caregiver Be able to walk without pain, return to boating, Goals minimize pain. Current Functional Impairments (Reported) Functional bench in shower Limitations- ADL's Functional cane Limitations- Mobility/Gait Functional retired Limitations- Work/ School Functional unable to go for walks, go boating. Limitations- Recreation/Hobbies PT-OP-C Subjective Start: 01/10/25 16:00 Freq: Status: Active Protocol: Document 03/13/25 11:34 SP (Rec: 03/13/25 12:35 SP [id number]) OP-PT Subjective Patient Comments Patient Comments Pt reports was out on boat Th- Sun felt ok but Mon soreness over use Tylenol and house chores. This am sore but fewer between and better longer time. PT-OP-D Balance Start: 01/10/25 16:00 Freq: Status: Active Protocol: Document 01/14/25 11:[address] [facility] (Rec: 01/14/25 13:[address] [facility] Laptop) OP-PT Balance Assessment Sitting Balance Static Sitting Normal Balance Ability Dynamic Sitting Normal Balance Ability Standing Balance Static Standing Fair Balance Ability Dynamic Standing Fair Balance Ability Device Used SPC Standing Balance decreased weight-bearing left LE Comments Tucker Fall Scale Copyright Permission PT-OP-F Manual Assessment Start: 01/10/25 16:00 Freq: Status: Active Protocol: Document 01/14/25 11:34 SAK (Rec: 01/14/25 13:[address] [facility] Laptop) Manual Assessments Soft Tissue Assessment Soft Tissue Mobility swollen left LE, no excess redness and warmth Assessment PT-OP-G Mobility & Gait Start: 01/10/25 16:00 Freq: Status: Active Protocol: Document 01/14/25 11:[address] [facility] (Rec: 01/14/25 12:[address] [facility] Laptop) OP Mobility Evaluation Bed Mobility Supine to and from SBA, hooks right foot under left to transition sit to Sit supine OP Gait Assessment Gait Gait Assistance Independent Required: Distance (Feet) 50 Able to Maintain Yes Weight Bearing Status During Gait Assistive Devices Assistive Device Straight Cane Gait Deviations General Gait Pattern Antalgic,Decreased Stride Length,Decreased Feet Clearance Factors Limiting Gait Function Factors Limiting Decreased Strength,Pain Gait Function Stair Climbing Evaluation Evaluation Level of Assist On Standby Assistance Stairs Devices Stair Climbing Straight Cane,Right Railing Assistive Devices Technique/Endurance Stair Climbing Ascend and Descend Direction Stair Climbing Step to Step Technique Stair Climbing Set # 4 Repetitions (reps) Comments Stair Climbing 6 stairs Comments PT-OP-H Neuro Start: 01/10/25 16:00 Freq: Status: Active Protocol: Document 01/14/25 11:[address] [facility] (Rec: 01/14/25 13:[address] [facility] Laptop) Sensation Evaluation Gross Sensation Sensation Paresthesia Description PT-OP-J Posture/Palpation/Skin Start: 01/10/25 16:00 Freq: Status: Active Protocol: Document 01/14/25 11:34 SAK (Rec: 01/14/25 13:[address] [facility] Laptop) Palpation Assessment Location left hip Palpation Findings Edema,Soft Tissue Tightness Skin Assessment Incisional Assessment Incision Appearance/ covered by op dressing Comments PT-OP-K Range of Motion Start: 01/10/25 16:00 Freq: Status: Active Protocol: Document 01/14/25 11:34 SAK (Rec: 01/14/25 13:36 SAK Laptop) Hip Goniometric Range of Motion Hip Left Active Testing Position Supine Flexion w/Knee 75 Flexed Extension 0 Abduction 40 Right Active Testing Position Supine Hip ROM Limitations Comments rotation not tested this date PT-OP-M Strength Start: 01/10/25 16:00 Freq: Status: Active Protocol: Document 01/14/25 11:34 SAK (Rec: 01/14/25 13:36 SAK Laptop) Hip Strength Hip Manual Muscle Testing Left Comments No MMT due to surgery. Able to flex left hip less than full anti-gravity Right Comments WFL Knee Strength Knee Manual Muscle Testing Left Comments antigravity quads Right Flexion (S2) 5 Normal Extension (L3) 5 Normal Ankle/Foot Strength Ankle and Foot Manual Muscle Testing juanita Dorsiflexion (L4) 5 Normal Plantarflexion (S1) 5 Normal PT-OP-Q Treatments Start: 01/10/25 16:00 Freq: Status: Active Protocol: Document 03/13/25 11:34 SP (Rec: 03/13/25 12:35 SP [id number]) Cardio Equipment Elliptical Duration (Minutes) 4 Resistance 5 Other UE moving handle support- good form Therapeutic Exercises Prone Exercises quad stretch Prone Exercise Name added to HEP declined HO Side left Equipment Used strap on foot Reps/Minutes 60 SH Comments good feeling- better than standing Standing Exercises lunges Standing Exercise stationary added to HEP (declined HO) Name Side bilateral Resistance AROM (back knee approx 3 from floor) Equipment Used near rail, not needed Reps/Minutes 10 reps Comments cued slower pacing SL STS Standing Exercise trialed- very challenging Name Side left Equipment Used elevated table (25)- Moderate 1 UE support Reps/Minutes 5 reps total Comments very challenging and pain in L knee- stopped resisted walk Standing Exercise lateral, forward, backward Name Side bilateral Resistance L3>4 TB (dark blue) arches feet today (latex free) Reps/Minutes 20 ft x2 laps each direction Comments good form, muscle tiring reported Manual Therapy Treatment Consent Patient gave verbal Yes consent for manual treatment Soft Tissue Mobilization L hip Body Location proximal quad, med lat to surgical scar Mobilization Type Instrument Assisted,Strumming Intensity/Depth Moderate Body Position Hooklying Comments MF cupping -suction pressure tolerance med/large cup- improved MF mobility. Neuro Re-Education Treatment Balance Activities BOSU Squat Details 1. dome side 2. Flat side Equipment PRN / hands hover rail Reps/Duration 10 reps each (SBA-S) Comments Mini- Mod squat depth (cues for safety stability and unsure strength not to deep) SLS Details Foam Equipment near rail if needed Comments R 60 sec, L 60 sec step-ups Details B: step ups fwd high opp knee Surface BOSU Equipment PRN rail if needed for stability Reps/Duration 10x2 each Comments occ cues for level ankle f/b/l, COG over TARIK. PT-OP-R Modalities Start: 01/10/25 16:00 Freq: Status: Active Protocol: Document 03/13/25 11:34 SP (Rec: 03/13/25 12:35 SP [id number]) Hot Pack/Cold Pack Treatment L hip Location Anterior L hip: ice pack Patient Position Supine Patient Tolerance Good Comments bolster under knees, 12 min per pt request PT-OP-T Assessment and Plan Start: 01/10/25 16:00 Freq: Status: Active Protocol: Document 03/13/25 11:34 SP (Rec: 03/13/25 12:35 SP [id number]) Physical Therapy Assessment Goals Four Impairment decreased soft tissue mobility of scar Prison Goal (LTG) Normalize surgical scar mobility for improved left hip function. 03/13/25: improving, use cupping and MF glides multidirectional, still top/bottom spots scab not fallen off. LTG Duration progressing 03/13/25 Three Impairment weakness left LE Short Term Goal (STG Instruct patient in HEP for purposes of left LE ) strengthening 02/14/25: goal met (ongoing progression). Patient verbalizing good compliance. STG Duration Goal met Prison Goal (LTG) Patient will be independent and compliant with HEP and demonstrate improvement in left LE strength to at least 4+/5 to allow him to return to prior level of function . 03/13/25: progressed lunges, SLS bal, BOSU step up, ET use, prone quad stretch, resisisted stepping band on feet little more challenge. LTG Duration 04/15/25 progressing 03/13/25 Two Impairment Antalgic gait, step-to pattern on stairs Short Term Goal (STG Patient will be able to ambulate on level surfaces ) without a limp with least restrictive device 02.14.25: goal met STG Duration goal met Prison Goal (LTG) Patient will be able to ambulate on level and uneven surfaces without device without an increase in pain. Alternating step pattern on stairs 03/13/25: no pain uneven, level surfaces, receiprocal stair mgt looks normal Maria. LTG Duration 04/15/25 GOAL MET 03/13/25 One Impairment Lower extremity functional scale 20% Short Term Goal (STG Improve score to at least 40% as measure of improved ) activity tolerance and left LE function 02/14/25: 76% goal met STG Duration goal met Prison Goal (LTG) Improve score to at least 75% as measure of improved activity tolerance and left LE function 02/14/25: goal met. Goal updated to 85% LTG Duration 04/15/25 Assessment Summary Assessment Pt good tolerance to ET warm up today. Pt improved SL and more dynamic functional ther ex activities today, lunge, BOSU SL step ups, challenged by trial SL sit<> Stand (hold). Pt has think 2 more appts before leave OOT for 5 weeks. Check when next 2mo ortho Follow up . Physical Therapy Plan Frequency and Duration Frequency of 2x/Week Treatment Duration of 12 treatment (weeks) Plan of Care Start 01/14/25 Date Plan of Care End 04/15/25 Date Therapeutic Interventions Therapeutic Gait Training,Home Exercise Program,Manual Therapy, Interventions Neuromuscular Re-education,Patient/Caregiver Education, Self-Care/Home Management,Soft Tissue Mobilization, Taping,Therapeutic Activities,Therapeutic Exercises Modalities Cold Pack/Ice Massage,Electric Stimulation,Hot Packs Next Visit Focus/Plan Next Note Type Treatment Note Next Visit Plan PN due by 03/17 (30 days). Continue warm up ET. Check ortho appt, leaving OOT end March for 5 weeks. POC: Continue to progress strengthening, review BOSU work and SLS activities as tolerated, uneven higher level terrain.
--- NOTE | 2025-03-20 18:17 | PT.OTN ---
Current Diagnoses Unilateral primary osteoarthritis, left hip (03/20/25) Difficulty in walking, not elsewhere classified (03/20/25) Weakness (03/20/25) Physical Therapy Treatment Note PT-OP-A Visit Information Start: 01/10/25 16:00 Freq: Status: Active Protocol: Document 03/20/25 15:19 AB (Rec: 03/20/25 16:28 AB Laptop) Out-Patient Physical Therapy Visit Information Visit Information Visit Type Treatment Note Visit Start Time 15:19 Visit Stop Time 16:16 Visit Number 17 Number of TAPPER HELPER Visits 3 Evaluation Information Evaluation Date 01/14/25 Precautions Precautions Left anterior FREDRICK PT-OP-B Current Condition Start: 01/10/25 16:00 Freq: Status: Active Protocol: Document 02/28/25 09:50 LFG (Rec: 02/28/25 11:04 LFG Laptop) Current Condition History of Current Condition Onset Date 01/10/25 Current Complaints s/p left FREDRICK History of Current s/p left anterior FREDRICK 01/10/25. Used Oxycodone first Condition couple days, now off and using Ibuprofen, Tylenol, baby aspirin, ice. No need for anti-nausea. Used walker at first, today first day with cane. Using FWW in the middle of the night. Numbness left lateral LE, has been swollen but wearing above knee compression socks not as swollen. Post-op dressing still in place, can come off 1 wk after surgery. Goes back to Dr. Ocampo 01/24/25. no redness or warmth. Has been doing exercises. Treatment Goals Patient/Caregiver Be able to walk without pain, return to boating, Goals minimize pain. Current Functional Impairments (Reported) Functional bench in shower Limitations- ADL's Functional cane Limitations- Mobility/Gait Functional retired Limitations- Work/ School Functional unable to go for walks, go boating. Limitations- Recreation/Hobbies PT-OP-C Subjective Start: 01/10/25 16:00 Freq: Status: Active Protocol: Document 03/20/25 15:19 AB (Rec: 03/20/25 16:28 AB Laptop) OP-PT Subjective Patient Comments Patient Comments Patient reports he is still getting some soreness in the hip, depends on how much he does the day before. Patient rates pain 1-2/10 L hip. Patient reports he is doing the exercises, skips a day when sore, isn't doing the easier ones. PT-OP-D Balance Start: 01/10/25 16:00 Freq: Status: Active Protocol: Document 01/14/25 11:34 [facility] (Rec: 01/14/25 13:36 [facility] Laptop) OP-PT Balance Assessment Sitting Balance Static Sitting Normal Balance Ability Dynamic Sitting Normal Balance Ability Standing Balance Static Standing Fair Balance Ability Dynamic Standing Fair Balance Ability Device Used SPC Standing Balance decreased weight-bearing left LE Comments Tucker Fall Scale Copyright Permission PT-OP-F Manual Assessment Start: 01/10/25 16:00 Freq: Status: Active Protocol: Document 01/14/25 11:34 [facility] (Rec: 01/14/25 13:36 [facility] Laptop) Manual Assessments Soft Tissue Assessment Soft Tissue Mobility swollen left LE, no excess redness and warmth Assessment PT-OP-G Mobility & Gait Start: 01/10/25 16:00 Freq: Status: Active Protocol: Document 01/14/25 11:34 [facility] (Rec: 01/14/25 12:24 [facility] Laptop) OP Mobility Evaluation Bed Mobility Supine to and from SBA, hooks right foot under left to transition sit to Sit supine OP Gait Assessment Gait Gait Assistance Independent Required: Distance (Feet) 50 Able to Maintain Yes Weight Bearing Status During Gait Assistive Devices Assistive Device Straight Cane Gait Deviations General Gait Pattern Antalgic,Decreased Stride Length,Decreased Feet Clearance Factors Limiting Gait Function Factors Limiting Decreased Strength,Pain Gait Function Stair Climbing Evaluation Evaluation Level of Assist On Standby Assistance Stairs Devices Stair Climbing Straight Cane,Right Railing Assistive Devices Technique/Endurance Stair Climbing Ascend and Descend Direction Stair Climbing Step to Step Technique Stair Climbing Set # 4 Repetitions (reps) Comments Stair Climbing 6 stairs Comments PT-OP-H Neuro Start: 01/10/25 16:00 Freq: Status: Active Protocol: Document 01/14/25 11:34 [facility] (Rec: 01/14/25 13:36 [facility] Laptop) Sensation Evaluation Gross Sensation Sensation Paresthesia Description PT-OP-J Posture/Palpation/Skin Start: 01/10/25 16:00 Freq: Status: Active Protocol: Document 01/14/25 11:34 [facility] (Rec: 01/14/25 13:36 [facility] Laptop) Palpation Assessment Location left hip Palpation Findings Edema,Soft Tissue Tightness Skin Assessment Incisional Assessment Incision Appearance/ covered by op dressing Comments PT-OP-K Range of Motion Start: 01/10/25 16:00 Freq: Status: Active Protocol: Document 01/14/25 11:34 SAK (Rec: 01/14/25 13:36 SAK Laptop) Hip Goniometric Range of Motion Hip Left Active Testing Position Supine Flexion w/Knee 75 Flexed Extension 0 Abduction 40 Right Active Testing Position Supine Hip ROM Limitations Comments rotation not tested this date PT-OP-M Strength Start: 01/10/25 16:00 Freq: Status: Active Protocol: Document 01/14/25 11:34 SAK (Rec: 01/14/25 13:36 [facility] Laptop) Hip Strength Hip Manual Muscle Testing Left Comments No MMT due to surgery. Able to flex left hip less than full anti-gravity Right Comments WFL Knee Strength Knee Manual Muscle Testing Left Comments antigravity quads Right Flexion (S2) 5 Normal Extension (L3) 5 Normal Ankle/Foot Strength Ankle and Foot Manual Muscle Testing juanita Dorsiflexion (L4) 5 Normal Plantarflexion (S1) 5 Normal PT-OP-Q Treatments Start: 01/10/25 16:00 Freq: Status: Active Protocol: Document 03/20/25 15:19 AB (Rec: 03/20/25 16:28 AB Laptop) Therapeutic Exercises Supine Exercises Stretching Supine Exercise Name bong Summers stretch Side left Reps/Minutes 90 sec X 2 with cupping and AROM knee flexion ball squeeze Supine Exercise Name HEP Side bilateral Equipment Used pillow Reps/Minutes 5 SH x10 bridge Supine Exercise Name HEP Side bilateral Reps/Minutes x10 Comments post manual Sidelying Exercises Abduction Sidelying Exercise HEP Name Side left Reps/Minutes 15 Comments verbal cues for trunk position Standing Exercises glute med isometric Standing Exercise HEP Name Side bilateral Reps/Minutes one min hold X 1 Comments verbalcues squat Standing Exercise HEP Name Side bilateral Reps/Minutes X 15 then X 10 flat BOSU X 10 round BOSU ( close supervision) Comments monitored form and for pain Glute Med Standing Exercise Glute med at wall, hip/knee flexed, side of body at Name wall, slide thigh up Resistance HEP to continue on HEP Reps/Minutes 5x each leg Comments cues to lift leg against wall, heel raise, toe raise Standing Exercise heel raise HEP updated Pt to continue Name Reps/Minutes X 2 seated Comments verbal cues Manual Therapy Treatment Consent Patient gave verbal Yes consent for manual treatment Soft Tissue Mobilization L hip Body Location proximal quad, med lat to surgical scar Mobilization Type Cross-Friction,Instrument Assisted Intensity/Depth Moderate Body Position Hooklying Comments cupping with Mod Kristopher stretch with and without knee flexion PT-OP-R Modalities Start: 01/10/25 16:00 Freq: Status: Active Protocol: Document 03/20/25 15:19 AB (Rec: 03/20/25 16:28 AB Laptop) Hot Pack/Cold Pack Treatment L hip Location Anterior L hip: ice pack Patient Position Supine Patient Tolerance Good Comments bolster under knees, 15 min PT-OP-T Assessment and Plan Start: 01/10/25 16:00 Freq: Status: Active Protocol: Document 03/20/25 15:19 AB (Rec: 03/20/25 16:28 AB Laptop) Physical Therapy Assessment Goals Four Impairment decreased soft tissue mobility of scar Group Home Goal (LTG) Normalize surgical scar mobility for improved left hip function. 03/13/25: improving, use cupping and MF glides multidirectional, still top/bottom spots scab not fallen off. LTG Duration progressing 03/13/25 Three Impairment weakness left LE Short Term Goal (STG Instruct patient in HEP for purposes of left LE ) strengthening 02/14/25: goal met (ongoing progression). Patient verbalizing good compliance. STG Duration Goal met Dining Service Supervisor Goal (LTG) Patient will be independent and compliant with HEP and demonstrate improvement in left LE strength to at least 4+/5 to allow him to return to prior level of function . 03/13/25: progressed lunges, SLS bal, BOSU step up, ET use, prone quad stretch, resisisted stepping band on feet little more challenge. LTG Duration 04/15/25 progressing 03/13/25 One Impairment Lower extremity functional scale 20% Short Term Goal (STG Improve score to at least 40% as measure of improved ) activity tolerance and left LE function 02/14/25: 76% goal met STG Duration goal met Dining Service Supervisor Goal (LTG) Improve score to at least 75% as measure of improved activity tolerance and left LE function 02/14/25: goal met. Goal updated to 85% LTG Duration 7/7/25 Assessment Summary Assessment Patient rates pain 0-1/10 L hip end of session. HEP updated and condensed to 4X a week, squat depth increased, and patient reports he was not performing sidelying hip at home. Larger print handouts given due to difficulty seeing pictures without glassess. Physical Therapy Plan Frequency and Duration Frequency of 2x/Week Treatment Duration of 12 treatment (weeks) Plan of Care Start 01/14/25 Date Plan of Care End 04/15/25 Date Next Visit Focus/Plan Next Note Type Progress Note Next Visit Plan PN due by 03/17 (30 days). Continue warm up ET. Check ortho appt, leaving OOT end March for 5 weeks. POC: Continue to progress strengthening, review BOSU work and SLS activities as tolerated, uneven higher level terrain. [ End ]
--- NOTE | 2025-03-26 13:31 | PT.OTRE ---
Current Diagnoses Unilateral primary osteoarthritis, left hip (03/26/25) Difficulty in walking, not elsewhere classified (03/26/25) Weakness (03/26/25) Past Medical History (Last Updated 09/17/24 @ 20:59 by Farida Roque) Chicken pox (~1992) Eczema (~2020) Fractures Hyperlipidemia, unspecified IFG (impaired fasting glucose) Melanoma (~2019) Shoulder pain Skin cancer (~2019) Surgical History (Last Updated 12/21/24 @ 11:16 by Jeanette Jackson MA) Anesthesia H/O left knee surgery (~2008) H/O right knee surgery (~2002) History of rotator cuff surgery (~2019) History of shoulder surgery (~2004) Status post LASIK surgery (~1997) [place] teeth removed (03/24/84) Visit Care Team Role Provider Type Aviva Argueta DO Family Provider Physician Primary Care Provider Specialty: Family Practice Address: [address] [place] [address], [address], [facility] Email: [email or web address] Taurus Saldana MD Attending Provider Non-Staff Referring Provider Specialty: Orthopedic Surgery Address: [address] [place] [address], [facility] Email: Physical Therapy Re-Evaluation PT-OP-A Visit Information Start: 01/10/25 16:00 Freq: Status: Active Protocol: Document 03/26/25 08:58 SAK (Rec: 03/26/25 09:46 SAK Laptop) Out-Patient Physical Therapy Visit Information Visit Information Visit Type Progress Note Visit Start Time 09:03 Visit Stop Time 09:45 Visit Number 18 Number of [facility] [employer] Visits 0 Evaluation Information Evaluation Date 01/14/25 Precautions Precautions Left anterior FREDRICK PT-OP-B Current Condition Start: 01/10/25 16:00 Freq: Status: Active Protocol: Document 03/26/25 08:58 SAK (Rec: 03/26/25 09:46 SAK Laptop) Current Condition History of Current Condition Onset Date 01/10/25 Current Complaints s/p left FREDRICK History of Current s/p left anterior FREDRICK 01/10/25. Used Oxycodone first Condition couple days, now off and using Ibuprofen, Tylenol, baby aspirin, ice. No need for anti-nausea. Used walker at first, today first day with cane. Using FWW in the middle of the night. Numbness left lateral LE, has been swollen but wearing above knee compression socks not as swollen. Post-op dressing still in place, can come off 1 wk after surgery. Goes back to Dr. Ocampo 01/24/25. no redness or warmth. Has been doing exercises. 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 Leaves this Tuesday, coming back 05/05/25, sees orthopedist 05/06/29. Agreeable to follow-up appt after sees orthopedist. Has been walking on docks, all over the boat, marinas, grass, gravel PT-OP-D Balance Start: 01/10/25 16:00 Freq: Status: Active Protocol: Document 01/14/25 11:34 SAK (Rec: 01/14/25 13:36 SAK Laptop) OP-PT Balance Assessment Sitting Balance Static Sitting Normal Balance Ability Dynamic Sitting Normal Balance Ability Standing Balance Static Standing Fair Balance Ability Dynamic Standing Fair Balance Ability Device Used SPC Standing Balance decreased weight-bearing left LE Comments Tucker Fall Scale Copyright Permission Caitlin ALMARAZ, Caitlin RM, Char [place]. Development of a scale to identify the fall- prone patient. Can J Aging 1989;8;366-7. Gualberto Tucker (2009). Preventing patient falls. (2nd ed). [place]: [place]. PT-OP-F Manual Assessment Start: 01/10/25 16:00 Freq: Status: Active Protocol: Document 01/14/25 11:34 SAK (Rec: 01/14/25 13:36 SAK Laptop) Manual Assessments Soft Tissue Assessment Soft Tissue Mobility swollen left LE, no excess redness and warmth Assessment PT-OP-G Mobility & Gait Start: 01/10/25 16:00 Freq: Status: Active Protocol: Document 01/14/25 11:34 [facility] (Rec: 01/14/25 12:24 [facility] Laptop) OP Mobility Evaluation Bed Mobility Supine to and from SBA, hooks right foot under left to transition sit to Sit supine OP Gait Assessment Gait Gait Assistance Independent Required: Distance (Feet) 50 Able to Maintain Yes Weight Bearing Status During Gait Assistive Devices Assistive Device Straight Cane Gait Deviations General Gait Pattern Antalgic,Decreased Stride Length,Decreased Feet Clearance Factors Limiting Gait Function Factors Limiting Decreased Strength,Pain Gait Function Stair Climbing Evaluation Evaluation Level of Assist On Standby Assistance Stairs Devices Stair Climbing Straight Cane,Right Railing Assistive Devices Technique/Endurance Stair Climbing Ascend and Descend Direction Stair Climbing Step to Step Technique Stair Climbing Set # 4 Repetitions (reps) Comments Stair Climbing 6 stairs Comments PT-OP-H Neuro Start: 01/10/25 16:00 Freq: Status: Active Protocol: Document 01/14/25 11:34 [facility] (Rec: 01/14/25 13:36 [facility] Laptop) Sensation Evaluation Gross Sensation Sensation Paresthesia Description PT-OP-J Posture/Palpation/Skin Start: 01/10/25 16:00 Freq: Status: Active Protocol: Document 01/14/25 11:34 [facility] (Rec: 01/14/25 13:36 [facility] Laptop) Palpation Assessment Location left hip Palpation Findings Edema,Soft Tissue Tightness Skin Assessment Incisional Assessment Incision Appearance/ covered by op dressing Comments PT-OP-K Range of Motion Start: 01/10/25 16:00 Freq: Status: Active Protocol: Document 01/14/25 11:34 [facility] (Rec: 01/14/25 13:36 [facility] Laptop) Hip Goniometric Range of Motion Hip Measured in Degrees Left Active Testing Position Supine Flexion w/Knee 75 Flexed Extension 0 Abduction 40 Right Active Testing Position Supine Hip ROM Limitations Comments rotation not tested this date PT-OP-M Strength Start: 01/10/25 16:00 Freq: Status: Active Protocol: Document 01/14/25 11:34 [facility] (Rec: 01/14/25 13:36 [facility] Laptop) Hip Strength Hip Manual Muscle Testing Left Comments No MMT due to surgery. Able to flex left hip less than full anti-gravity Right Comments WFL Knee Strength Knee Manual Muscle Testing Left Comments antigravity quads Right Flexion (S2) 5 Normal Extension (L3) 5 Normal Ankle/Foot Strength Ankle and Foot Manual Muscle Testing juanita Dorsiflexion (L4) 5 Normal Plantarflexion (S1) 5 Normal PT-OP-Q Treatments Start: 01/10/25 16:00 Freq: Status: Active Protocol: Document 03/26/25 08:58 SAK (Rec: 03/26/25 09:46 SAK Laptop) Cardio Equipment Treadmill Duration (Minutes) 8 Speed 2-2.6 Incline 0-6 Other cues for symmetrical weight-bearing, stance time Therapeutic Exercises Supine Exercises bug Reps/Minutes 10x Comments added to HEP bridge Supine Exercise Name single leg bridge added to HEP Side bilateral Reps/Minutes x10 Prone Exercises quad stretch Prone Exercise Name verbal review Sidelying Exercises Abduction Sidelying Exercise HEP Name Side left Reps/Minutes 10x Comments reviewed technique clam Side left Resistance L3 TB Reps/Minutes 10 Comments cues for core stab and not rolling body back, progressed HEP Standing Exercises standing hip Standing Exercise verbal review standing vs monster walks due to limited Name space on boat Equipment Used L2 TB Reps/Minutes 10x squat Standing Exercise HEP Name Side bilateral Equipment Used mirror Reps/Minutes 10x2 Comments cues for technique lunges Side bilateral Equipment Used mirror for visual feedback Reps/Minutes 10 reps Comments cued slower pacing, technique, akugbnebt PT-OP-R Modalities Start: 01/10/25 16:00 Freq: Status: Active Protocol: Document 03/20/25 15:19 AB (Rec: 03/20/25 16:28 AB Laptop) Hot Pack/Cold Pack Treatment L hip Location Anterior L hip: ice pack Patient Position Supine Patient Tolerance Good Comments bolster under knees, 15 min PT-OP-T Assessment and Plan Start: 01/10/25 16:00 Freq: Status: Active Protocol: Document 03/26/25 08:58 [facility] (Rec: 03/26/25 09:46 [facility] Laptop) Physical Therapy Assessment Goals Four Impairment decreased soft tissue mobility of scar Transmission Rebuilder Goal (LTG) Normalize surgical scar mobility for improved left hip function. 03/13/25: improving, use cupping and MF glides multidirectional, still top/bottom spots scab not fallen off. LTG Duration 05/08/25 Three Impairment weakness left LE Short Term Goal (STG Instruct patient in HEP for purposes of left LE ) strengthening 02/14/25: goal met (ongoing progression). Patient verbalizing good compliance. STG Duration Goal met Prison Goal (LTG) Patient will be independent and compliant with HEP and demonstrate improvement in left LE strength to at least 4+/5 to allow him to return to prior level of function . 03/13/25: progressed lunges, SLS bal, BOSU step up, ET use, prone quad stretch, resisisted stepping band on feet little more challenge. 03/26/25: goal mostly met, weakness noted juanita ER left greater than right, functional strengthening required cues for technique (squats and lunges). Updated HEP for reisistance with clamshell LTG Duration 05/08/25 One Impairment Lower extremity functional scale 20% Short Term Goal (STG Improve score to at least 40% as measure of improved ) activity tolerance and left LE function 02/14/25: 76% goal met STG Duration goal met Prison Goal (LTG) Improve score to at least 75% as measure of improved activity tolerance and left LE function 02/14/25: goal met. Goal updated to 85% 03/26/25: 83% LTG Duration 04/15/25 Assessment Summary Assessment Patient making good progress toward PT goals as above. Is leaving on vacation for 5 weeks, returns 05/05/25, has appointment with surgeon 05/06/25, then follow-up PT appointment 05/07/25, anticipate discharge from PT on that date after final assessment, update HEP as indicated. Physical Therapy Plan Frequency and Duration Frequency of 2x/Week Treatment Duration of 6 treatment (weeks) Plan of Care Start 03/26/25 Date Plan of Care End 05/08/25 Date Therapeutic Interventions Therapeutic Gait Training,Home Exercise Program,Manual Therapy, Interventions Neuromuscular Re-education,Patient/Caregiver Education, Self-Care/Home Management,Soft Tissue Mobilization, Taping,Therapeutic Activities,Therapeutic Exercises Modalities Cold Pack/Ice Massage,Electric Stimulation,Hot Packs Next Visit Focus/Plan Next Note Type Re-Evaluation Next Visit Plan Follow-up PT appointment as needed after patient returns from vacation and has appointment with orthopedist.
--- NOTE | 2025-03-26 13:36 | PT.OPPOC ---
Physical, Occupational & Speech Therapy At [facility] Current Diagnoses Unilateral primary osteoarthritis, left hip (03/26/25) Difficulty in walking, not elsewhere classified (03/26/25) Weakness (03/26/25) Visit Care Team Role Provider Type Aviva Argueta DO Family Provider Physician Primary Care Provider Specialty: Family Practice Address: [address] [place] [address], [address], [address] Email: [email or web address] Taurus Saldana MD Attending Provider Non-Staff Referring Provider Specialty: Orthopedic Surgery Address: [address] [place] [address], [place], [address] Email: Plan Of Care PT-OP-B Current Condition Start: 01/10/25 16:00 Freq: Status: Active Protocol: Document 03/26/25 08:58 SAK (Rec: 03/26/25 09:46 SAK Laptop) Current Condition History of Current Condition Onset Date 01/10/25 Current Complaints s/p left FREDRICK History of Current s/p left anterior FREDRICK 01/10/25. Used Oxycodone first Condition couple days, now off and using Ibuprofen, Tylenol, baby aspirin, ice. No need for anti-nausea. Used walker at first, today first day with cane. Using FWW in the middle of the night. Numbness left lateral LE, has been swollen but wearing above knee compression socks not as swollen. Post-op dressing still in place, can come off 1 wk after surgery. Goes back to Dr. Ocampo 01/24/25. no redness or warmth. Has been doing exercises. PT-OP-T Assessment and Plan Start: 01/10/25 16:00 Freq: Status: Active Protocol: Document 03/26/25 08:58 SAK (Rec: 03/26/25 09:46 SAK Laptop) Physical Therapy Assessment Goals Four Impairment decreased soft tissue mobility of scar Police Communications Operator Goal (LTG) Normalize surgical scar mobility for improved left hip function. 03/13/25: improving, use cupping and MF glides multidirectional, still top/bottom spots scab not fallen off. LTG Duration 05/08/25 Three Impairment weakness left LE Short Term Goal (STG Instruct patient in HEP for purposes of left LE ) strengthening 02/14/25: goal met (ongoing progression). Patient verbalizing good compliance. STG Duration Goal met Police Communications Operator Goal (LTG) Patient will be independent and compliant with HEP and demonstrate improvement in left LE strength to at least 4+/5 to allow him to return to prior level of function . 03/13/25: progressed lunges, SLS bal, BOSU step up, ET use, prone quad stretch, resisisted stepping band on feet little more challenge. 03/26/25: goal mostly met, weakness noted juanita ER left greater than right, functional strengthening required cues for technique (squats and lunges). Updated HEP for reisistance with clahell LTG Duration 05/08/25 One Impairment Lower extremity functional scale 20% Short Term Goal (STG Improve score to at least 40% as measure of improved ) activity tolerance and left LE function 02/14/25: 76% goal met STG Duration goal met Snf Goal (LTG) Improve score to at least 75% as measure of improved activity tolerance and left LE function 02/14/25: goal met. Goal updated to 85% 03/26/25: 83% LTG Duration 04/15/25 Assessment Summary Assessment Patient making good progress toward PT goals as above. Is leaving on vacation for 5 weeks, returns 05/05/25, has appointment with surgeon 05/06/25, then follow-up PT appointment 05/07/25, anticipate discharge from PT on that date after final assessment, update HEP as indicated. Physical Therapy Plan Frequency and Duration Frequency of 2x/Week Treatment Duration of 6 treatment (weeks) Plan of Care Start 03/26/25 Date Plan of Care End 05/08/25 Date Therapeutic Interventions Therapeutic Gait Training,Home Exercise Program,Manual Therapy, Interventions Neuromuscular Re-education,Patient/Caregiver Education, Self-Care/Home Management,Soft Tissue Mobilization, Taping,Therapeutic Activities,Therapeutic Exercises Modalities Cold Pack/Ice Massage,Electric Stimulation,Hot Packs Next Visit Focus/Plan Next Note Type Re-Evaluation Next Visit Plan Follow-up PT appointment as needed after patient returns from vacation and has appointment with orthopedist. Plan of Care Dates Plan of Care Start Date 03/26/25 Plan of Care End Date 05/08/25 Electronically Signed by: Andree Gonzalez, PT 03/26/25 [id number] If you are in agreement with this Plan of Care, please return a signed and dated copy. I have reviewed this Plan of Care and certify that the skilled therapy services above are required to meet the patient?s needs. Physician Signature Date Printed Name and Credentials Clinical Instructor Signature Printed Name and Credentials
--- NOTE | 2025-05-06 10:26 | PT.OTN ---
Current Diagnoses Unilateral primary osteoarthritis, left hip (05/06/25) Difficulty in walking, not elsewhere classified (05/06/25) Weakness (05/06/25) Physical Therapy Treatment Note PT-OP-A Visit Information Start: 01/10/25 16:00 Freq: Status: Active Protocol: Document 05/06/25 09:45 SAK (Rec: 05/06/25 10:26 SAK Laptop) Out-Patient Physical Therapy Visit Information Visit Information Visit Type Treatment Note Visit Start Time 09:45 Visit Stop Time 10:23 Visit Number 19 Evaluation Information Evaluation Date 01/14/25 Precautions Precautions Left anterior FREDRICK PT-OP-B Current Condition Start: 01/10/25 16:00 Freq: Status: Active Protocol: Document 05/06/25 09:45 SAK (Rec: 05/06/25 10:26 SAK Laptop) Current Condition History of Current Condition Onset Date 01/10/25 Current Complaints s/p left FREDRICK History of Current s/p left anterior FREDRICK 01/10/25. Used Oxycodone first Condition couple days, now off and using Ibuprofen, Tylenol, baby aspirin, ice. No need for anti-nausea. Used walker at first, today first day with cane. Using FWW in the middle of the night. Numbness left lateral LE, has been swollen but wearing above knee compression socks not as swollen. Post-op dressing still in place, can come off 1 wk after surgery. Goes back to Dr. Ocampo 01/24/25. no redness or warmth. Has been doing exercises. PT-OP-C Subjective Start: 01/10/25 16:00 Freq: Status: Active Protocol: Document 05/06/25 09:45 SAK (Rec: 05/06/25 10:26 SAK Laptop) OP-PT Subjective Patient Comments Patient Comments Last pain is about a month ago now. Took 5 week vacation on boat, no new c/o. 2x/wk doing HEP, some walking and hiking went, didn't use trekking poles. REports appt with surgeon moved to this Tuesday. Has been working on scar. Feels doing well, agreeeable to discharge after today's visit. PT-OP-D Balance Start: 01/10/25 16:00 Freq: Status: Active Protocol: Document 01/14/25 11:34 SAK (Rec: 01/14/25 13:36 [facility] Laptop) OP-PT Balance Assessment Sitting Balance Static Sitting Normal Balance Ability Dynamic Sitting Normal Balance Ability Standing Balance Static Standing Fair Balance Ability Dynamic Standing Fair Balance Ability Device Used SPC Standing Balance decreased weight-bearing left LE Comments Tucker Fall Scale Copyright Permission PT-OP-F Manual Assessment Start: 01/10/25 16:00 Freq: Status: Active Protocol: Document 01/14/25 11:34 [facility] (Rec: 01/14/25 13:36 [facility] Laptop) Manual Assessments Soft Tissue Assessment Soft Tissue Mobility swollen left LE, no excess redness and warmth Assessment PT-OP-G Mobility & Gait Start: 01/10/25 16:00 Freq: Status: Active Protocol: Document 01/14/25 11:34 [facility] (Rec: 01/14/25 12:24 [facility] Laptop) OP Mobility Evaluation Bed Mobility Supine to and from SBA, hooks right foot under left to transition sit to Sit supine OP Gait Assessment Gait Gait Assistance Independent Required: Distance (Feet) 50 Able to Maintain Yes Weight Bearing Status During Gait Assistive Devices Assistive Device Straight Cane Gait Deviations General Gait Pattern Antalgic,Decreased Stride Length,Decreased Feet Clearance Factors Limiting Gait Function Factors Limiting Decreased Strength,Pain Gait Function Stair Climbing Evaluation Evaluation Level of Assist On Standby Assistance Stairs Devices Stair Climbing Straight Cane,Right Railing Assistive Devices Technique/Endurance Stair Climbing Ascend and Descend Direction Stair Climbing Step to Step Technique Stair Climbing Set # 4 Repetitions (reps) Comments Stair Climbing 6 stairs Comments PT-OP-H Neuro Start: 01/10/25 16:00 Freq: Status: Active Protocol: Document 01/14/25 11:34 [facility] (Rec: 01/14/25 13:36 [facility] Laptop) Sensation Evaluation Gross Sensation Sensation Paresthesia Description PT-OP-J Posture/Palpation/Skin Start: 01/10/25 16:00 Freq: Status: Active Protocol: Document 01/14/25 11:34 [facility] (Rec: 01/14/25 13:36 [facility] Laptop) Palpation Assessment Location left hip Palpation Findings Edema,Soft Tissue Tightness Skin Assessment Incisional Assessment Incision Appearance/ covered by op dressing Comments PT-OP-K Range of Motion Start: 01/10/25 16:00 Freq: Status: Active Protocol: Document 01/14/25 11:34 [facility] (Rec: 01/14/25 13:36 [facility] Laptop) Hip Goniometric Range of Motion Hip Left Active Testing Position Supine Flexion w/Knee 75 Flexed Extension 0 Abduction 40 Right Active Testing Position Supine Hip ROM Limitations Comments rotation not tested this date PT-OP-M Strength Start: 01/10/25 16:00 Freq: Status: Active Protocol: Document 01/14/25 11:34 SAK (Rec: 01/14/25 13:36 [facility] Laptop) Hip Strength Hip Manual Muscle Testing Left Comments No MMT due to surgery. Able to flex left hip less than full anti-gravity Right Comments WFL Knee Strength Knee Manual Muscle Testing Left Comments antigravity quads Right Flexion (S2) 5 Normal Extension (L3) 5 Normal Ankle/Foot Strength Ankle and Foot Manual Muscle Testing juanita Dorsiflexion (L4) 5 Normal Plantarflexion (S1) 5 Normal PT-OP-Q Treatments Start: 01/10/25 16:00 Freq: Status: Active Protocol: Document 05/06/25 09:45 [facility] (Rec: 05/06/25 10:26 [facility] Laptop) Therapeutic Exercises Standing Exercises squat Standing Exercise HEP Name Side bilateral Equipment Used mirror Reps/Minutes 10x2 lunges Side bilateral Equipment Used mirror for visual feedback Reps/Minutes 10 reps gastroc and soleus stretch Equipment Used KENIA Reps/Minutes 30x2 Comments stretch then active rock fwd and back x 10 heel raise, toe raise Standing Exercise heel raise HEP updated Pt to continue Name Reps/Minutes standing at stair heel raise and and leaning bckwd wall for inc ROM toe thomas Comments verbal cues Manual Therapy Treatment Soft Tissue Mobilization L hip Body Location proximal quad, med lat to surgical scar Mobilization Type Instrument Assisted,Strumming Intensity/Depth Moderate Body Position Hooklying Self-Care/Home Management Treatment Education Patient Education Pain Management,Posture PT-OP-R Modalities Start: 01/10/25 16:00 Freq: Status: Active Protocol: Document 03/20/25 15:19 AB (Rec: 03/20/25 16:28 AB Laptop) Hot Pack/Cold Pack Treatment L hip Location Anterior L hip: ice pack Patient Position Supine Patient Tolerance Good Comments bolster under knees, 15 min PT-OP-T Assessment and Plan Start: 01/10/25 16:00 Freq: Status: Active Protocol: Document 05/06/25 09:45 SAK (Rec: 05/06/25 10:26 [facility] Laptop) Physical Therapy Assessment Goals Four Impairment decreased soft tissue mobility of scar Executive Business Coach Goal (LTG) Normalize surgical scar mobility for improved left hip function. 03/13/25: improving, use cupping and MF glides multidirectional, still top/bottom spots scab not fallen off. LTG Duration goal met Three Impairment weakness left LE Short Term Goal (STG Instruct patient in HEP for purposes of left LE ) strengthening 02/14/25: goal met (ongoing progression). Patient verbalizing good compliance. STG Duration Goal met Half-Way Goal (LTG) Patient will be independent and compliant with HEP and demonstrate improvement in left LE strength to at least 4+/5 to allow him to return to prior level of function . 03/13/25: progressed lunges, SLS bal, BOSU step up, ET use, prone quad stretch, resisisted stepping band on feet little more challenge. 03/26/25: goal mostly met, weakness noted juanita ER left greater than right, functional strengthening required cues for technique (squats and lunges). Updated HEP for reisistance with clamshell 05/06/25:goal met LTG Duration goal met One Impairment Lower extremity functional scale 20% Short Term Goal (STG Improve score to at least 40% as measure of improved ) activity tolerance and left LE function 02/14/25: 76% goal met STG Duration goal met Half-Way Goal (LTG) Improve score to at least 75% as measure of improved activity tolerance and left LE function 02/14/25: goal met. Goal updated to 85% 03/26/25: 83% 05/06/25: goal met LTG Duration 04/15/25goal met Assessment Summary Assessment Patient has met all PT goals. Ready for discharge to self care. Physical Therapy Plan Frequency and Duration Frequency of 2x/Week Treatment Duration of 6 treatment (weeks) Plan of Care Start 03/26/25 Date Plan of Care End 05/08/25 Date Therapeutic Interventions Therapeutic Gait Training,Home Exercise Program,Manual Therapy, Interventions Neuromuscular Re-education,Patient/Caregiver Education, Self-Care/Home Management,Soft Tissue Mobilization, Taping,Therapeutic Activities,Therapeutic Exercises Modalities Cold Pack/Ice Massage,Electric Stimulation,Hot Packs Discharge Physical Therapy Discharge Reasons Goals Met
== END 2025-05-06 14:46 | disposition home or self-care (01) ==
LOC: PHYS 09:45
PROVIDERS: Family Provider Family Medicine; PCP Family Medicine; Referring Provider Orthopaedic Surgery Sports Medicine; Visit Provider Orthopaedic Surgery Sports Medicine
DX: M16.12 Unilateral primary osteoarthritis, left hip (principal); R53.1 Weakness; R26.2 Difficulty in walking, not elsewhere classified
CPT/HCPCS: 97010; 97110; 97112; 97116; 97140; 97161; 97535

== ENCOUNTER → 2025-09-09 08:13 | Outpatient (CLI) | payer BC, SELFPAY ==
[2025-09-09 08:57] LABS: Hemoglobin A1C% w Est Avg Glu 5.5 % (4.0-6.0)
[2025-09-09 09:01] LABS: Alanine Aminotransferase 17 IU/L (<50); Albumin 4.3 g/dL (3.5-5.0); Albumin Globulin Ratio 1.4 (1.0-2.8); Alkaline Phosphatase 56 U/L (38-126); Blood Urea Nitrogen 12 mg/dL (9-20); Calcium 9.2 mg/dL (8.4-10.2); Carbon Dioxide 26 mmol/L (22-32); Chloride 105 mmol/L (98-107); Cholesterol 226 mg/dL (140-199); Estimated Glomerular Filt Rate > 60 mL/min (>60); Globulin 3.1 g/dL (1.7-4.1); Glucose 115 mg/dL (70-99); HDL Cholesterol 65 mg/dL (40-60); HEMOLYSIS < 15 (0-50); Potassium 4.5 mmol/L (3.4-5.1); Sodium 137 mmol/L (137-145); Total Protein 7.4 g/dL (6.3-8.2); Triglycerides 115 mg/dL (35-150)
== END ==
PROVIDERS: PCP Family Medicine; Referring Provider Family Medicine; Visit Provider Family Medicine
DX: Z00.00 Encounter for general adult medical examination without abnormal findings (principal); Z12.5 Encounter for screening for malignant neoplasm of prostate; E78.5 Hyperlipidemia, unspecified; R73.01 Impaired fasting glucose
CPT/HCPCS: 36415; 80053; 80061; 82172; 83036; G0103